=== PATIENT | male | born 1970 | race Two or more races ===

== ENCOUNTER 2020-04-26 07:12 | Emergency (ER) | payer BC, MEDICAID, SELFPAY ==
--- NOTE | 2020-04-26 07:17 | ED_ITS ---
HPI - Eye Problem General Chief complaint: Eye Problems Stated complaint: eye pain Time Seen by Provider: 04/26/20 07:17 Source: patient Mode of arrival: ambulatory Limitations: no limitations History of Present Illness MD chief complaint: eye pain, eye redness and eye injury Onset (ago): day(s) (4) Onset description: sudden Duration: constant Location: right eye Eye Symptoms: redness, pain and foreign body sensation Place: home Mechanism: direct trauma (metal fragment went into eye) Severity: moderate If Pain, Quality: sharp Context: trauma Associated symptoms: none Treatments Prior to Arrival: none Related Data Previous Rx's Medication Instructions Recorded erythromycin 0.5 inch OPHTHALMIC (EYE) TID #3.5 04/26/20 g hydrocodone-acetaminophen 1 tab PO Q6H PRN #12 tab 04/26/20 metformin 1,000 mg tablet 1,000 mg PO Q12H #60 tab 04/26/20 Allergies Allergy/AdvReac Type Severity Reaction Status Date / Time No Known Allergies Allergy Unverified 03/10/20 16:18 [No Known Allergies*] Review of Systems Review of Systems: Constitutional : No Weight loss, No Fever, No Chills ENT/Mouth : No sore throat, No Rhinorrhea Eyes: pos Eye Pain, No Swelling, pos Redness Cardiovascular : No Chest Pain, No SOB Respiratory : No Cough, No Sputum, No Wheezing Gastrointestinal : No Nausea, No Vomiting Genitourinary : No Dysuria, No Urinary Frequency, No Hematuria, Musculoskeletal : No joint pain, No Myalgias, No Joint Swelling Skin : No Skin Lesions, No rash Neuro : No Weakness, No Numbness, No Dizziness, No Headache [facility] Past Medical History Medical History Anxiety Depression Diabetes HTN (hypertension) Social History Social History (Updated 04/26/20 @ 07:24 by Cyndi Lopez DO) Smoking Status: Former smoker Use of substances other than those prescribed or required for medical reasons: No Advance Directives: No Advance Directives Information Provided: No Physical Exam Vital Signs: Vital Signs: Vital Signs Temp Pulse Resp BP Pulse Ox 04/26/20 07:23 97.6 F 66 18 141/83 H 98 Body Mass Index 27.3 Appearance: Alert. Oriented X3. No acute distress. Eyes: Pupils equal, round and reactive to light. Vision intact, EOMi, R eye inferior 8 o'clock position to pupil overlying iris is small metallic FB noted on exam ENT: Pharynx normal. Neck: Normal inspection. Neck supple. CVS: Normal heart rate and rhythm. Pulses normal. Respiratory: No respiratory distress. Breath sounds normal. Abdomen: Soft and nontender. Skin: Skin warm and dry. Normal skin color. Normal skin turgor. Extremities: No lower extremity edema. No calf ttp Neuro: Oriented X 3. No motor deficit. No sensory deficit. Course Course Course Narrative: with espinoza lamp no abrasion seen, only able to partially remove metal fragment in eye with moistened q tip patient tolerate well, unfortunately there is a deeper area not amenable to removal - used fluorscein and tetracaine for removal tolerated well, RN at bedside. Procedures FB Removal Eye Time Out performed: Yes Location: eye (R) Topical anesthetic used: tetracaine Foreign body: metal Evidence of corneal penetration: Yes Technique: cotton tip swab Procedure performed under: direct visualization with magnification Post-procedure medication: ophthalmic antibiotic and topical anesthetic Patient tolerated procedure: well Complications: incomplete foreign body removal MDM - Eye Problem MDM Narrative Medical decision making narrative: 49 yo male s/p metal FB to R eye from Saturday I can visualize the piece with the naked eye, no change in vision, no rust ring, Tdap UTD at this time will stain eye and attempt to remove FB, patient does not wear contacts Discharge Plan Discharge Clinical Impression: Foreign body in eye Qualifiers: Encounter type: initial encounter Laterality: right Qualified Code(s): T15.91XA - Foreign body on external eye, part unspecified, right eye, initial encounter Patient Disposition: Home, Self-Care Instructions: Eye Foreign Body (ED) Additional Instructions: return to ED for any worsening symptoms or concerns, apply ointment in 1 hour, you need to call your eye doctor MICHAEL this needs to be removed in 2 days Prescriptions: New hydrocodone-acetaminophen 5-325 mg tablet 1 tab PO Q6H PRN (Reason: pain) Qty: 12 RF: 0 erythromycin 5 mg/gram (0.5 %) ointment 0.5 inch ophthalmic (eye) TID Qty: 3.5 RF: 0 No Action metformin 1,000 mg tablet 1,000 mg PO Q12H Qty: 60 RF: 2 Referrals: Heber Mendoza [Physician] - 2 days Stand Alone Forms: Work/School Release Interventions: ED Discharge Assessment Last Done: 04/26/20 07:42 Discharge Date/Time: 04/26/20 07:51
[2020-04-26 07:23] VITALS: BP 141/83; PULSE 66; RESP 18; TEMP 36.4; O2SAT 98; BMI 27.3
[2020-04-26] MEDS: Tetracaine HCl/PF 0.5% Oph Sol 4 ML DROPS 3 DROP EYE-BOTH (07:29)
[2020-04-26] MEDS: Fluorescein Sodium STRIP 1 STRIP EYE-BOTH (07:35)
== END 2020-04-26 07:51 | disposition home or self-care (01) ==
LOC: HO.ED 07:43
PROVIDERS: Emergency Provider Emergency Medicine; PCP Physician Assistant
DX: H57.11 Ocular pain, right eye (principal); T15.01XA Foreign body in cornea, right eye, initial encounter; X58.XXXA Exposure to other specified factors, initial encounter; Y93.9 Activity, unspecified; Y92.9 Unspecified place or not applicable; Y99.9 Unspecified external cause status
CPT/HCPCS: 65222; 99284

== ENCOUNTER → 2020-07-14 08:28 | Outpatient (BNVA) | payer BC, MEDICAID, SELFPAY | PROVIDERS: Visit Provider Nurse Practitioner Gerontology ==

== ENCOUNTER → 2020-07-15 09:43 | Outpatient (BNVA) | payer BC, MEDICAID, SELFPAY | PROVIDERS: Visit Provider Urology ==

== ENCOUNTER 2020-10-07 03:00 | Emergency (ER) | payer BC, MEDICAID, SELFPAY ==
--- NOTE | ~2020-10-07 | XR_ITS ---
EXAMINATIONS: BILATERAL HAND 3 VIEWS CLINICAL INFORMATION: Third through fifth metacarpal pain. COMPARISON: None. TECHNIQUE: PA, lateral, oblique views of each hand were obtained. FINDINGS: There are no fractures or dislocations. There is no significant soft tissue swelling. On the left, there is mild fifth PIP and DIP joint space narrowing. XR/XR hand RT min 3V IMPRESSION: No evidence for acute injury to either hand.
--- NOTE | ~2020-10-07 | XR_ITS ---
EXAMINATIONS: BILATERAL HAND 3 VIEWS CLINICAL INFORMATION: Third through fifth metacarpal pain. COMPARISON: None. TECHNIQUE: PA, lateral, oblique views of each hand were obtained. FINDINGS: There are no fractures or dislocations. There is no significant soft tissue swelling. On the left, there is mild fifth PIP and DIP joint space narrowing. XR/XR hand LT min 3V IMPRESSION: No evidence for acute injury to either hand.
[2020-10-07 03:18] VITALS: BP 137/87; PULSE 68; RESP 16; TEMP 37.1; O2SAT 98; BMI 28.5
--- NOTE | 2020-10-07 03:22 | ED.GENADULT ---
HPI - General Adult General Chief complaint: Extremity Injury, Upper Stated complaint: HAND PAIN Time Seen by Provider: 10/07/20 03:16 Source: patient Mode of arrival: ambulatory Limitations: no limitations History of Present Illness HPI narrative: Patient comes to emergency room complaining of bilateral hand pain. Patient states that approximately 3 weeks ago he was caring a large follow up having it, his partner nearly dropped a cabinet and the patient and thinks that he sprinted his hands. Patient states that he has chronic pain over the right 2nd metacarpal, but now he has new pain over the 3rd through 5th metacarpals especially when he closes his hands. Patient states that he did not have any crushing injury Related Data Home Medications Medication Instructions Recorded Confirmed empagliflozin 10 mg tablet 10 mg PO DAILY 06/16/20 07/14/20 ipratropium bromide 21 mcg (0.03 spray INTRANASAL 06/16/20 07/14/20 %) nasal spray aspirin 81 mg chewable tablet 1 tab PO DAILY 07/14/20 07/14/20 blood sugar diagnostic #10 ea 07/14/20 07/14/20 cyclobenzaprine 5 mg tablet 5 mg PO BEDTIME PRN 07/14/20 07/14/20 tadalafil 10 mg tablet 10 mg PO DAILY PRN 07/14/20 07/14/20 Previous Rx's Medication Instructions Recorded erythromycin 0.5 inch OPHTHALMIC (EYE) TID #3.5 04/26/20 g hydrocodone-acetaminophen 1 tab PO Q6H PRN #12 tab 04/26/20 fluticasone propionate 50 1 spray INTRANASAL DAILY #16 g 06/16/20 mcg/actuation nasal spray,suspension tadalafil 10 mg tablet 10 mg PO .As needed PRN 90 Days 07/15/20 #90 tab pantoprazole 40 mg tablet,delayed 40 mg PO DAILY #30 tab 07/18/20 release lisinopril 10 mg tablet 10 mg PO DAILY 90 Days #90 tab 08/14/20 dulaglutide 0.75 mg/0.5 mL 0.75 mg SUBCUT QWEEK #2 ml 09/11/20 subcutaneous pen injector metformin 500 mg tablet,extended 2,000 mg PO DAILY #120 tab 09/15/20 release 24 hr atorvastatin 20 mg tablet 20 mg PO DAILY #30 tab 10/04/20 ibuprofen 600 mg PO Q8H PRN #14 tab 10/07/20 Allergies Allergy/AdvReac Type Severity Reaction Status Date / Time No Known Allergies Allergy Verified 07/14/20 09:13 [No Known Allergies*] Review of Systems Review of Systems: Constitutional : No Weight loss, No Fever, No Chills, No Night Sweats, No Fatigue, No Malaise ENT/Mouth : No Hearing loss, No Ear Pain, No Nasal Congestion, No Sinus Pain, No Hoarseness, No sore throat, No Rhinorrhea, No Swallowing Difficulty Eyes: No Eye Pain, No Swelling, No Redness, No Foreign Body, No Discharge, No Vision Changes Cardiovascular : No Chest Pain, No SOB, No Dyspnea on Exertion, No Orthopnea, No Edema, No Palpitations Respiratory : No Cough, No Sputum, No Wheezing, No Smoke Exposure, No Dyspnea Gastrointestinal : No Nausea, No Vomiting, No Diarrhea, No Constipation, No abdominal Pain, No Hematochezia, No Melena Genitourinary : no irregular bleeding, No Dysuria, No Urinary Frequency, No Hematuria, No Urinary Incontinence, No Urgency, No Flank Pain, No Urinary Flow Changes, No Hesitancy Musculoskeletal : Complaining of bilateral hand pain in the dorsum, no wrist pain Skin : No Skin Lesions, No rash Neuro : No Weakness, No Numbness, No Paresthesias, No Loss of Consciousness, No Dizziness, No Headache Psych : No Anxiety/Panic, No Depression, No SI/HI/AH/VH, No Social Issues, Heme/Lymph: No Bruising, No Bleeding,No Lymphadenopathy Endocrine : No Polyuria, No Polydipsia, No Temperature Intolerance PMFSH Past Medical History Medical History Anxiety Chronic sinusitis Controlled diabetes mellitus without complication, without long-term current use of insulin Depression Diabetes Essential hypertension HTN (hypertension) Hyperlipidemia LDL goal <100 Obesity due to excess calories Smoking Surgical History H/O elbow surgery History of appendectomy History of cataract surgery History of repair of rotator cuff Hx of foot surgery Hx of rhinoplasty Family History Family History Mother Diabetes Hypertension Social History Social History Household Members: None Smoking Status: Former smoker Advance Directives: No Advance Directives Information Provided: No Physical Exam Vital Signs: Vital Signs: Last Vital Signs Temp 98.7 F 10/07/20 03:18 Pulse 68 10/07/20 03:18 Resp 16 10/07/20 03:18 BP 137/87 10/07/20 03:18 Pulse Ox 98 10/07/20 03:18 Body Mass Index 28.5 Appearance: Alert. Oriented X3. No acute distress. Eyes: Pupils equal, round and reactive to light. ENT: Pharynx normal. Neck: Normal inspection. Neck supple. No lymph nodes noted. No crepitus CVS: Normal heart rate and rhythm. Pulses normal. Normal S1 and S2 Respiratory: No respiratory distress. Breath sounds normal. No Wheezing. No rales Abdomen: Soft and nontender. No rigidity. No distention. good BS x4 Skin: Skin warm and dry. Normal skin color. Normal skin turgor. Extremities: No lower extremity edema. Both hands look within normal limits, patient is able to close hands into fists, flex and extend all fingers within normal limits, states he has pain to palpation over the 3rd through 5th metacarpal on the left hand dorsal aspect, and chronic pain on the 2nd metacarpal in the right hand Neuro: Oriented X 3. No motor deficit. No sensory deficit. Moving all extermities. No slurred speech. Course Course Course Narrative: I discussed the x-rays with the patient, no acute findings, no fractures. Patient instructed to follow-up with his primary care physician. Patient's pain likely secondary to arthritis Medical Decision Making Imaging Data Hand x-ray: Radiologist's impression: There are no fractures or dislocations. There is no significant soft tissue swelling. On the left, there is mild fifth PIP and DIP joint space narrowing. Discharge Plan Discharge Clinical Impression: Bilateral hand pain Patient Disposition: Home, Self-Care Instructions: Arthralgia (ED) Additional Instructions: Please follow-up with your primary care physician tomorrow. If you have any worsening or new symptoms, please return to the emergency room or call 911 Prescriptions: New ibuprofen 600 mg tablet 600 mg PO Q8H PRN (Reason: pain) Qty: 14 RF: 0 No Action fluticasone propionate 50 mcg/actuation spray,suspension 1 spray intranasal DAILY Qty: 16 RF: 3 pantoprazole 40 mg tablet,delayed release (DR/EC) 40 mg PO DAILY Qty: 30 RF: 4 lisinopril 10 mg tablet 10 mg PO DAILY 90 Days Qty: 90 RF: 2 Trulicity 0.75 mg/0.5 mL pen injector 0.75 mg subcut QWEEK Qty: 2 RF: 0 metformin 500 mg tablet extended release 24 hr 2,000 mg PO DAILY Qty: 120 RF: 3 atorvastatin 20 mg tablet 20 mg PO DAILY Qty: 30 RF: 3 hydrocodone-acetaminophen 5-325 mg tablet 1 tab PO Q6H PRN (Reason: pain) Qty: 12 RF: 0 erythromycin 5 mg/gram (0.5 %) ointment 0.5 inch ophthalmic (eye) TID Qty: 3.5 RF: 0 ipratropium bromide 0.03 % spray,non-aerosol intranasal RF: 0 Jardiance 10 mg tablet 10 mg PO DAILY RF: 0 tadalafil 10 mg tablet 10 mg PO DAILY PRNRF: 0 (DME) FreeStyle Lite Strips Strip See Rx Instructions strip Not Applicable BID Qty: 10 RF: 0 aspirin 81 mg tablet,chewable 1 tab PO DAILY RF: 0 cyclobenzaprine 5 mg tablet 5 mg PO BEDTIME PRNRF: 0 tadalafil 10 mg tablet 10 mg PO .As needed PRN (Reason: sexual activity) 90 Days Qty: 90 RF: 1
== END 2020-10-07 05:24 | disposition home or self-care (01) ==
PROVIDERS: Emergency Provider Emergency Medicine; PCP Physician Assistant
DX: M79.641 Pain in right hand (principal); M79.642 Pain in left hand; M25.542 Pain in joints of left hand; M25.541 Pain in joints of right hand; Z87.891 Personal history of nicotine dependence; Z79.899 Other long term (current) drug therapy; Z79.82 Long term (current) use of aspirin
CPT/HCPCS: 73130; 99283

== ENCOUNTER → 2020-12-02 10:03 | Outpatient (BNVA) | payer BC, MEDICAID, SELFPAY | PROVIDERS: PCP Physician Assistant; Visit Provider Nurse Practitioner Gerontology | DX: E11.65 Type 2 diabetes mellitus with hyperglycemia (principal); E78.5 Hyperlipidemia, unspecified; I10 Essential (primary) hypertension; E66.9 Obesity, unspecified | CPT/HCPCS: 82947 ==

== ENCOUNTER 2020-12-14 10:33 | Outpatient (REF) | payer BC, SELFPAY ==
[2020-12-14 11:43] LABS: Hematocrit 50.2 % (42-52); Hemoglobin 17.7 g/dl (14.0-18.0); Mean Corpuscular HGB Conc 35.3 g/dl (31.0-36.0); Mean Corpuscular Hemoglobin 30.9 pg (27.0-33.0); Mean Corpuscular Volume 87.8 fL (80-98); Mean Platelet Volume 10.5 fL (9.4-12.4); Platelet Count 244 X10*3/uL (160-400); Red Blood Count 5.72 X10*6/uL (4.60-5.80); Red Cell Distribution Width 12.8 % (11.0-16.0); White Blood Count 5.4 X10*3/uL (4.8-10.8)
[2020-12-14 12:06] LABS: Alanine Aminotransferase 43 U/L (0-40); Albumin Level 4.5 g/dL (3.5-5.0); Alkaline Phosphatase 69 U/L (39-117); Anion Gap 13 (12-20); Aspartate Amino Transferase 22 U/L (5-37); Bilirubin Total 0.8 mg/dL (0.0-1.0); Blood Urea Nitrogen 17 mg/dL (9-16); Calcium 9.6 mg/dL (8.4-10.2); Carbon Dioxide 27 mmol/L (22-29); Chloride 102 mmol/L (96-108); Cholesterol 198 mg/dL; Estimated Glomerular Filt Rate > 60; Glucose Fasting 172 mg/dL (60-99); HDL Cholesterol 64 mg/dL; LDL Cholesterol Calculated 119 mg/dl; Potassium 5.1 mmol/L (3.3-5.1); Sodium 137 mmol/L (135-145); Total Protein 7.6 g/dL (6.5-8.0); Triglycerides 75 mg/dL
[2020-12-14 12:10] LABS: Creatinine Urine 86.03 mg/dL; Microalbum/Creatinine Ratio Ur 5.8 ug/mg cr
[2020-12-14 12:28] LABS: Prostate Specific Antigen Scr 0.63 ng/mL (<0.05-4.0); TSH reflex Free T4 0.58 uIU/mL (0.32-4.0)
[2020-12-14 13:14] LABS: Estimated Average Glucose 217 mg/dL; Hemoglobin A1c % 9.2 %
[2020-12-15 07:52] LABS: LDL Cholesterol Direct 126 mg/dL (<100)
== END 2020-12-14 10:34 | disposition home or self-care (01) ==
LOC: HO.LAB 10:33
PROVIDERS: Absent Provider Physician Assistant; PCP Physician Assistant; Visit Provider Nurse Practitioner Gerontology
DX: Z12.5 Encounter for screening for malignant neoplasm of prostate (principal); I10 Essential (primary) hypertension; E11.65 Type 2 diabetes mellitus with hyperglycemia
CPT/HCPCS: 36415; 80053; 80061; 82043; 83036; 83721; 84153; 84443; 85027

== ENCOUNTER → 2020-12-23 09:44 | Outpatient (BNVA) | payer BC, SELFPAY | PROVIDERS: PCP Physician Assistant; Visit Provider Dietitian, Registered | DX: E11.65 Type 2 diabetes mellitus with hyperglycemia (principal) | CPT/HCPCS: 97802 ==

== ENCOUNTER → 2021-01-20 10:46 | Outpatient (BNVA) | payer BC, SELFPAY | PROVIDERS: PCP Physician Assistant; Visit Provider Nurse Practitioner Gerontology | DX: E11.65 Type 2 diabetes mellitus with hyperglycemia (principal); E78.5 Hyperlipidemia, unspecified; I10 Essential (primary) hypertension; E66.3 Overweight | CPT/HCPCS: 82947 ==

== ENCOUNTER → 2021-02-03 09:16 | Outpatient (BNVA) | payer BC, SELFPAY | PROVIDERS: PCP Physician Assistant; Visit Provider Dietitian, Registered | DX: E11.65 Type 2 diabetes mellitus with hyperglycemia (principal); I10 Essential (primary) hypertension; E78.5 Hyperlipidemia, unspecified; E66.9 Obesity, unspecified; Z68.27 Body mass index [BMI] 27.0-27.9, adult | CPT/HCPCS: 97803 ==

== ENCOUNTER 2021-02-04 22:15 | Emergency (ER) | payer BC, MEDICAID, SELFPAY ==
--- NOTE | ~2021-02-04 | CT_ITS ---
EXAMINATION: CT ABDOMEN AND PELVIS WITH CONTRAST CLINICAL INFORMATION: Left lower quadrant pain COMPARISON: 01/30/2014 TECHNIQUE: Multidetector volumetric images were obtained from the superior aspect of the liver through the pubic symphysis following administration 85 mL of Omnipaque 350 intravenous contrast. Sagittal and coronal reformatted images were obtained on the technologist's workstation. Oral contrast: No This CT examination was performed using dose optimization techniques as appropriate, variously including the following: *Automated exposure control *Adjustment of mA and/or kV according to patient size (this includes techniques or standardized protocols for targeted exams where dose is matched to indication/reason for exam; i.e. extremities or head) *Use of iterative reconstruction technique DLP: 618 mGy-cm FINDINGS: LUNG BASES: The visualized lung bases are unremarkable. LIVER, GALLBLADDER, AND BILIARY TREE: The liver is normal in size, shape, and attenuation. No focal hepatic lesion or biliary ductal dilatation is present. The gallbladder is unremarkable with no evidence of radiopaque gallstones, gallbladder wall thickening, or obvious pericholecystic inflammatory changes. PANCREAS: Unremarkable. SPLEEN: Unremarkable. ADRENAL GLANDS: Unremarkable. KIDNEYS AND URETERS: The kidneys are normal in size, shape, and attenuation. No hydronephrosis, hydroureter, or calculi seen. No perinephric stranding. BLADDER: Unremarkable. GASTROINTESTINAL TRACT: The stomach is unremarkable. Normal caliber small bowel. No obstruction. The appendix is absent. No colonic wall thickening or inflammatory change. No free air or free fluid. ABDOMINAL WALL: No significant hernia is appreciated. LYMPH NODES: Normal. VASCULAR: Normal caliber aorta with mild atherosclerotic calcification. PELVIC VISCERA: The prostate and seminal vesicles are unremarkable. OSSEOUS STRUCTURES: No acute or suspicious osseous abnormality. Mild degenerative change at L5-S1 with disc space narrowing and vacuum disc phenomenon. CT/CT abdomen pelvis w con IMPRESSION: No acute findings in the abdomen or pelvis. No inflammatory changes.
[2021-02-04 22:33] VITALS: BP 116/78; PULSE 75; RESP 16; TEMP 37; O2SAT 96; BMI 26.6
[2021-02-05] VITALS: BP 115/82; PULSE 69; RESP 18; O2SAT 97
--- NOTE | 2021-02-05 00:33 | ED_ITS ---
HPI - Abdominal Pain General Chief Complaint: Abdominal Pain Stated Complaint: Abdominal pain Time Seen by Provider: 02/04/21 23:25 Source: patient Mode of arrival: ambulatory History of Present Illness HPI narrative: 50-year-old male with history diabetes presents with complaints of left lower quadrant pain and associated nausea but denies any vomiting/fevers/chills for approximately 1 week. Patient denies any radiation of the pain but states that has increased in intensity and has not been associated with diarrhea or difficulties with urination. He states it is somewhat associated with his injection site for his diabetic medications. Related Data Home Medications Medication Instructions Recorded Confirmed ipratropium bromide 21 mcg (0.03 2 spray INTRANASAL BID 06/16/20 02/05/21 %) nasal spray aspirin 81 mg chewable tablet 1 tab PO DAILY 07/14/20 02/05/21 blood sugar diagnostic #10 ea 07/14/20 02/05/21 Previous Rx's Medication Instructions Recorded lisinopril 10 mg tablet 10 mg PO DAILY 90 Days #90 tab 08/14/20 ibuprofen 600 mg tablet 600 mg PO Q8H PRN #14 tab 10/07/20 empagliflozin 25 mg tablet 25 mg PO QAM #90 tab 12/02/20 (Jardiance) fluticasone propionate 50 1 spray INTRANASAL DAILY #16 g 12/05/20 mcg/actuation nasal spray,suspension metformin 500 mg tablet,extended 1,000 mg PO BID #360 tab 12/05/20 release 24 hr tadalafil 10 mg tablet 10 mg PO .As needed PRN 90 Days 12/14/20 #90 tab atorvastatin 40 mg tablet 40 mg PO DAILY 90 Days #90 tab 12/20/20 cyclobenzaprine 5 mg tablet 5 mg PO BEDTIME PRN 15 Days #15 tab 12/20/20 montelukast 10 mg tablet 10 mg PO DAILY 30 Days #30 tab 12/20/20 hydroxyzine HCl 50 mg tablet 50 mg PO BEDTIME 30 Days #30 tab 01/02/21 pantoprazole 40 mg tablet,delayed 40 mg PO DAILY #30 tab 01/02/21 release dulaglutide 0.75 mg/0.5 mL 0.75 mg SUBCUT QWEEK #2 ml 01/20/21 subcutaneous pen injector (Trulicity) Allergies Allergy/AdvReac Type Severity Reaction Status Date / Time No Known Allergies Allergy Verified 02/04/21 22:41 [No Known Allergies*] Review of Systems Review of Systems Pertinent positives and negatives as stated in HPI 10 point review systems is otherwise negative. Physical Exam Vital Signs: Vital Signs: Last Vital Signs Temp 98.6 F 02/04/21 22:33 Pulse 69 02/05/21 00:00 Resp 18 02/05/21 00:00 BP 115/82 02/05/21 00:00 Pulse Ox 97 02/05/21 00:00 Body Mass Index 26.6 VITAL SIGNS: Reviewed. GENERAL: Well developed, well nourished, in no acute distress. HEAD: Normocephalic/atraumatic EYES: PERRLA, EOMI LUNGS: Normal breath sounds. No adventitious sounds or accessory muscle use. SpO2<97> CARDIOVASCULAR: Regular rate and rhythm without noted murmurs ABDOMEN: Soft, tenderness at left lower quadrant without rebound, non-distended with bowel sounds. SKIN: Inspection of the skin reveals no rashes NEUROLOGIC: Alert and oriented x 4. Course Course Course Narrative: This is a 50-year-old male with history and clinical presentat ion suggestive of possible diverticulitis, renal colic, or possible but less likely UTI. Review of all investigations negative for any acute findings and suspect that this is likely musculoskeletal in nature or as the patient suggested may be associated with his injections. He was informed of all results and discharged home in stable condition. MDM - Abdominal Pain Lab Data Result diagrams: 02/05/21 00:29 02/05/21 00:29 Labs: Lab Results 02/05/21 02/05/21 02/05/21 Range/Units 00:29 00:29 00:29 WBC 6.8 (4.8-10.8) X10*3/uL RBC 5.36 (4.60-5.80) X10*6/uL Hgb 16.7 (14.0-18.0) g/dl Hct 46.7 (42-52) % MCV 87.1 (80-98) fL MCH 31.2 (27.0-33.0) pg MCHC 35.8 (31.0-36.0) g/dl RDW 12.5 (11.0-16.0) % Plt Count 207 (160-400) X10*3/uL MPV 10.1 (9.4-12.4) fL Immature Gran % (Auto) 0.3 (0.0-0.4) % Neut % (Auto) 53.1 (45-73) % Lymph % (Auto) 34.1 (20-40) % [place] % (Auto) 9.0 (2-11) % Eos % (Auto) 2.8 (0-4) % Baso % (Auto) 0.7 (0-2) % Lymph # (Auto) 2.3 (1.2-4.9) X10*3/uL [place] # (Auto) 0.6 (0.1-1.2) X10*3/uL Eos # (Auto) 0.2 (0.0-0.4) X10*3/uL Baso # (Auto) 0.1 (0.0-0.2) X10*3/uL Abs Immat Gran (auto) 0.02 (0.00-0.03) X10*3/uL Absolute Neuts (auto) 3.6 (2.0-8.3) X10*3/uL Absolute Nucleated RBC 0.000 (0.0-0.012) X10*3/uL Nucleated RBC % (auto) 0.0 (0.0-0.2) /100WBC Sodium 139 (135-145) mmol/L Potassium 4.4 (3.3-5.1) mmol/L Chloride 105 (96-108) mmol/L Carbon Dioxide 23 (22-29) mmol/L Anion Gap 15 (12-20) BUN 21 H (9-16) mg/dL Creatinine 0.79 (0.5-1.4) mg/dL Estim Creat Clear Calc 110.6 Estimated GFR > 60 Random Glucose 153 H (60-115) mg/dL Calcium 9.7 (8.4-10.2) mg/dL Total Bilirubin 0.3 (0.0-1.0) mg/dL AST 20 (5-37) U/L ALT 44 H (0-40) U/L Alkaline Phosphatase 92 D (39-117) U/L Total Protein 7.1 (6.5-8.0) g/dL Albumin 4.1 (3.5-5.0) g/dL Lipase 24 (8-78) U/L Urine Color YELLOW Urine Appearance CLEAR Urine pH 5.5 (5.0-8.0) Ur Specific [place] 1.020 (1.005-1.025) Urine Protein NEG (NEG-TRACE) MG/DL Urine Glucose (UA) >=1000 H (NEG) MG/DL Urine Ketones NEG (NEG) MG/DL Urine Blood NEG (NEG) Urine Nitrite NEG (NEG) Ur Leukocyte Esterase NEG (NEG) Urine RBC 0-2 (0) /HPF Urine WBC 0-2 (0-4) /HPF Ur Squamous Epith Cells TRACE /LPF Urine Bacteria NONE /LPF Urine Mucus TRACE /LPF Discharge Plan Discharge Clinical Impression: Musculoskeletal pain, Pain at injection site Patient Disposition: Home, Self-Care Instructions: Musculoskeletal Pain (ED) Additional Instructions: 1. Resume all home medications as prescribed. 2. Follow-up with your primary care provider for re-evaluation in 2-3 days and further outpatient management. 3. Recommend taking [id number] Tylenol/ibuprofen as needed for pain control. Return to the ER for acute worsening of your symptoms. Prescriptions: No Action lisinopril 10 mg tablet 10 mg PO DAILY 90 Days Qty: 90 RF: 2 fluticasone propionate 50 mcg/actuation spray,suspension 1 spray intranasal DAILY Qty: 16 RF: 3 metformin 500 mg tablet extended release 24 hr 1,000 mg PO BID Qty: 360 RF: 0 tadalafil 10 mg tablet 10 mg PO .As needed PRN (Reason: sexual activity) 90 Days Qty: 90 RF: 1 pantoprazole 40 mg tablet,delayed release (DR/EC) 40 mg PO DAILY Qty: 30 RF: 4 hydroxyzine HCl 50 mg tablet 50 mg PO BEDTIME 30 Days Qty: 30 RF: 4 ibuprofen 600 mg tablet 600 mg PO Q8H PRN (Reason: pain) Qty: 14 RF: 0 ipratropium bromide 0.03 % spray,non-aerosol 2 spray intranasal BID RF: 0 atorvastatin 40 mg tablet 40 mg PO DAILY 90 Days Qty: 90 RF: 1 montelukast 10 mg tablet 10 mg PO DAILY 30 Days Qty: 30 RF: 3 cyclobenzaprine 5 mg tablet 5 mg PO BEDTIME PRN (Reason: muscle spasm) 15 Days Qty: 15 RF: 0 (DME) FreeStyle Lite Strips Strip See Rx Instructions strip Not Applicable BID Qty: 10 RF: 0 aspirin 81 mg tablet,chewable 1 tab PO DAILY RF: 0 Jardiance 25 mg tablet 25 mg PO QAM Qty: 90 RF: 0 Trulicity 0.75 mg/0.5 mL pen injector 0.75 mg subcut QWEEK Qty: 2 RF: 4 Referrals: Juni Ro PA-C [Primary Care Provider] - 2 days [facility] Past Medical History Source: nursing notes reviewed Medical History Anxiety Chronic sinusitis Controlled diabetes mellitus without complication, without long-term current use of insulin Depression Diabetes Diabetes type 2, uncontrolled Essential hypertension HTN (hypertension) Hyperlipidemia LDL goal <100 Overweight Smoking Surgical History H/O elbow surgery History of appendectomy History of cataract surgery History of nasal surgery History of repair of rotator cuff Hx of foot surgery Hx of rhinoplasty Family History Family History Mother Diabetes Hypertension Social History Social History Household Members: None Housing: House Alcohol intake: former Patient Tobacco Use Status: Former Tobacco user Years Smoked: 1 1/2 year ago Smoked in Last 30 Days: No Use of substances other than those prescribed or required for medical reasons: No Advance Directives: No Advance Directives Information Provided: No service: No 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al status: employed
[2021-02-05 00:36] LABS: MANUAL DIFF FLAG NO
[2021-02-05 00:37] LABS: Basophils Absolute Auto 0.1 X10*3/uL (0.0-0.2); Basophils Percent Auto 0.7 % (0-2); Eosinophils Absolute Auto 0.2 X10*3/uL (0.0-0.4); Eosinophils Percent Auto 2.8 % (0-4); Hematocrit 46.7 % (42-52); Hemoglobin 16.7 g/dl (14.0-18.0); Imm Gran Abs Auto 0.02 X10*3/uL (0.00-0.03); Imm Gran Pct Auto 0.3 % (0.0-0.4); Lymphocytes Absolute Auto 2.3 X10*3/uL (1.2-4.9); Lymphocytes Percent Auto 34.1 % (20-40); Mean Corpuscular HGB Conc 35.8 g/dl (31.0-36.0); Mean Corpuscular Hemoglobin 31.2 pg (27.0-33.0); Mean Corpuscular Volume 87.1 fL (80-98); Mean Platelet Volume 10.1 fL (9.4-12.4); Monocytes Absolute Auto 0.6 X10*3/uL (0.1-1.2); Neutrophils Absolute Auto 3.6 X10*3/uL (2.0-8.3); Neutrophils Percent Auto 53.1 % (45-73); Platelet Count 207 X10*3/uL (160-400); Red Blood Count 5.36 X10*6/uL (4.60-5.80); Red Cell Distribution Width 12.5 % (11.0-16.0); White Blood Count 6.8 X10*3/uL (4.8-10.8)
[2021-02-05 01:01] LABS: Alanine Aminotransferase 44 U/L (0-40); Albumin Level 4.1 g/dL (3.5-5.0); Alkaline Phosphatase 92 U/L (39-117); Anion Gap 15 (12-20); Aspartate Amino Transferase 20 U/L (5-37); Bilirubin Total 0.3 mg/dL (0.0-1.0); Blood Urea Nitrogen 21 mg/dL (9-16); Calcium 9.7 mg/dL (8.4-10.2); Carbon Dioxide 23 mmol/L (22-29); Chloride 105 mmol/L (96-108); Creatinine Clr Calc Pharmacy 110.6; Estimated Glomerular Filt Rate > 60; Glucose Random 153 mg/dL (60-115); Lipase 24 U/L (8-78); Potassium 4.4 mmol/L (3.3-5.1); Sodium 139 mmol/L (135-145); Total Protein 7.1 g/dL (6.5-8.0)
[2021-02-05 01:13] LABS: Glucose Urine UA >=1000 MG/DL (NEG); Leukocyte Esterase Urine NEG (NEG); Nitrite Urine NEG (NEG); PH 5.5 (5.0-8.0); Urine Blood NEG (NEG); Urine Ketones NEG (NEG); Urine Protein NEG (NEG-TRACE)
[2021-02-05 01:19] LABS: Appearance Urine CLEAR; Color Urine YELLOW
[2021-02-05] MEDS: iohexoL 350 MG/ML 100 ML INFUS..BTL 85 ML IV (01:27)
[2021-02-05 01:35] LABS: RBC Urine 0-2 /HPF (0); Squamous Epithelial Cell Urine TRACE /LPF; WBC Urine 0-2 /HPF (0-4)
[2021-02-05 01:36] LABS: Mucus Urine TRACE /LPF
[2021-02-05 02:47] VITALS: BP 114/76; PULSE 69; RESP 16; O2SAT 96
== END 2021-02-05 02:54 | disposition home or self-care (01) ==
PROVIDERS: Emergency Provider Student in an Organized Health Care Education/Training Program; PCP Physician Assistant
DX: M79.18 Myalgia, other site (principal); T80.89XA Other complications following infusion, transfusion and therapeutic injection, initial encounter; R10.32 Left lower quadrant pain
CPT/HCPCS: 36415; 74177; 80053; 81001; 81003; 83690; 85025; 99284; Q9967

== ENCOUNTER 2021-03-14 11:06 | Outpatient (REF) | payer BC, MEDICAID, SELFPAY ==
[2021-03-14 12:32] LABS: Estimated Average Glucose 194 mg/dL; Hemoglobin A1c % 8.4 %
[2021-03-14 12:41] LABS: Creatinine Urine 88.41 mg/dL; Microalbum/Creatinine Ratio Ur 7.9 ug/mg cr
[2021-03-14 12:45] LABS: Alanine Aminotransferase 47 U/L (0-40); Albumin Level 4.2 g/dL (3.5-5.0); Alkaline Phosphatase 70 U/L (39-117); Anion Gap 11 (12-20); Aspartate Amino Transferase 24 U/L (5-37); Bilirubin Total 0.8 mg/dL (0.0-1.0); Blood Urea Nitrogen 17 mg/dL (9-16); Calcium 9.3 mg/dL (8.4-10.2); Carbon Dioxide 25 mmol/L (22-29); Chloride 107 mmol/L (96-108); Cholesterol 154 mg/dL; Estimated Glomerular Filt Rate > 60; Glucose Fasting 142 mg/dL (60-99); HDL Cholesterol 60 mg/dL; LDL Cholesterol Calculated 86 mg/dl; Potassium 4.8 mmol/L (3.3-5.1); Sodium 138 mmol/L (135-145); Total Protein 6.8 g/dL (6.5-8.0); Triglycerides 43 mg/dL
== END 2021-03-14 11:07 | disposition home or self-care (01) ==
LOC: HO.LAB 11:06
PROVIDERS: Absent Provider Nurse Practitioner Gerontology; PCP Physician Assistant; Visit Provider Physician Assistant
DX: E11.65 Type 2 diabetes mellitus with hyperglycemia (principal); E78.5 Hyperlipidemia, unspecified
CPT/HCPCS: 36415; 80053; 80061; 82043; 83036

== ENCOUNTER → 2021-03-17 10:32 | Outpatient (BNVA) | payer BC, MEDICAID, SELFPAY | PROVIDERS: PCP Physician Assistant; Visit Provider Dietitian, Registered | DX: E11.65 Type 2 diabetes mellitus with hyperglycemia (principal) | CPT/HCPCS: 97803 ==

== ENCOUNTER 2021-03-31 15:14 | Outpatient (REF) | payer BC, MEDICAID, SELFPAY ==
--- NOTE | ~2021-03-31 | CT_ITS ---
EXAMINATION: CT FOOT, LEFT CLINICAL INFORMATION: Nondisplaced fracture of navicular bone. COMPARISON: No recent exam available. Exam 12/23/2016 left ankle is normal. TECHNIQUE: 2 mm thin axial and 2 mm thin reconstructed coronal and sagittal images of left ankle were obtained. DLP: 147 mGy-cm FINDINGS: There is a bony fusion between the navicular, medial and mid cuneiform bones with small lucent tracks seen between these bones suggestive of previous instrumentation and removal for fusion. There is no acute fracture visualized at this time. The lateral cuneiform, talus and the cuboid bones are intact. The tarsometatarsal joint space is maintained normal as well without any evidence for secondary arthritis. The soft tissues are normal. CT/CT foot LT wo con IMPRESSION: Previous instrumentation and removal for fusion of calcaneus, medial and mid cuneiform bones which are partially fused. There is no acute fracture or dislocation seen at this time. No changes of secondary osteoarthritis. No soft tissue swelling.
== END 2021-03-31 15:15 | disposition home or self-care (01) ==
LOC: HO.CT 15:14
PROVIDERS: Visit Provider Physician Assistant
DX: S92.255 Nondisplaced fracture of navicular [scaphoid] of left foot (principal)
CPT/HCPCS: 73700

== ENCOUNTER 2021-07-06 12:11 | Outpatient (REF) | payer BC, MEDICAID, SELFPAY ==
[2021-07-06 13:32] LABS: Alanine Aminotransferase 45 U/L (0-40); Albumin Level 4.3 g/dL (3.5-5.0); Alkaline Phosphatase 64 U/L (39-117); Anion Gap 11 (12-20); Aspartate Amino Transferase 22 U/L (5-37); Bilirubin Total 1.2 mg/dL (0.0-1.0); Blood Urea Nitrogen 18 mg/dL (9-16); Calcium 9.6 mg/dL (8.4-10.2); Carbon Dioxide 29 mmol/L (22-29); Chloride 103 mmol/L (96-108); Cholesterol 145 mg/dL; Estimated Glomerular Filt Rate > 60; Glucose Fasting 120 mg/dL (60-99); HDL Cholesterol 60 mg/dL; LDL Cholesterol Calculated 78 mg/dl; Potassium 4.7 mmol/L (3.3-5.1); Sodium 138 mmol/L (135-145); Total Protein 7.6 g/dL (6.5-8.0); Triglycerides 37 mg/dL
[2021-07-06 13:41] LABS: Estimated Average Glucose 177 mg/dL; Hemoglobin A1c % 7.8 %
[2021-07-06 13:44] LABS: Creatinine Urine 92.46 mg/dL; Microalbumin Urine < 5.0 mg/L
== END 2021-07-06 12:12 | disposition home or self-care (01) ==
LOC: HO.LAB 12:11
PROVIDERS: PCP Physician Assistant; Visit Provider Physician Assistant
DX: E11.65 Type 2 diabetes mellitus with hyperglycemia (principal); E78.5 Hyperlipidemia, unspecified
CPT/HCPCS: 36415; 80053; 80061; 82043; 83036; 84443

== ENCOUNTER → 2021-07-11 08:03 | Outpatient (BNVA) | payer BC, MEDICAID, SELFPAY | PROVIDERS: PCP Physician Assistant; Visit Provider Nurse Practitioner Gerontology | DX: E11.65 Type 2 diabetes mellitus with hyperglycemia (principal); E78.5 Hyperlipidemia, unspecified; E66.3 Overweight; I10 Essential (primary) hypertension; Z79.84 Long term (current) use of oral hypoglycemic drugs; Z68.27 Body mass index [BMI] 27.0-27.9, adult | CPT/HCPCS: 82947 ==

== ENCOUNTER → 2021-07-14 09:41 | Outpatient (BNVA) | payer BC, MEDICAID, SELFPAY | PROVIDERS: PCP Physician Assistant; Visit Provider Dietitian, Registered | DX: E11.65 Type 2 diabetes mellitus with hyperglycemia (principal) | CPT/HCPCS: 97803 ==

== ENCOUNTER → 2021-07-20 11:14 | Outpatient (BNVA) | payer BC, MEDICAID, SELFPAY | PROVIDERS: PCP Physician Assistant; Visit Provider Urology | DX: E11.69 Type 2 diabetes mellitus with other specified complication (principal); N52.1 Erectile dysfunction due to diseases classified elsewhere | CPT/HCPCS: 51798 ==

== ENCOUNTER → 2021-07-28 08:10 | Outpatient (BNVA) | payer BC, MEDICAID, SELFPAY | PROVIDERS: PCP Physician Assistant; Visit Provider Registered Nurse Diabetes Educator ==

== ENCOUNTER → 2021-08-23 09:45 | Outpatient (BNVA) | payer BC, MEDICAID, SELFPAY | PROVIDERS: PCP Physician Assistant; Referring Provider Physician Assistant; Visit Provider Physician Assistant ==

== ENCOUNTER → 2021-08-25 09:04 | Outpatient (BNVA) | payer BC, MEDICAID, SELFPAY | PROVIDERS: PCP Physician Assistant; Visit Provider Registered Nurse Diabetes Educator ==

== ENCOUNTER → 2021-10-19 08:54 | Outpatient (BNVA) | payer BC, MEDICAID, SELFPAY | PROVIDERS: PCP Physician Assistant; Visit Provider Nurse Practitioner Gerontology | DX: E11.65 Type 2 diabetes mellitus with hyperglycemia (principal); E78.5 Hyperlipidemia, unspecified; E66.3 Overweight; I10 Essential (primary) hypertension; Z68.27 Body mass index [BMI] 27.0-27.9, adult | CPT/HCPCS: 82947; 83036 ==

== ENCOUNTER → 2021-11-01 09:13 | Outpatient (REF) | payer BC, MEDICAID, SELFPAY | LOC: HO.SL 09:13 | PROVIDERS: PCP Physician Assistant; Visit Provider Physician Assistant | DX: Z13.89 Encounter for screening for other disorder (principal) ==

== ENCOUNTER → 2021-12-04 08:08 | Outpatient (BNVA) | payer BC, MEDICAID, SELFPAY | PROVIDERS: PCP Physician Assistant; Visit Provider Registered Nurse Diabetes Educator | DX: E11.65 Type 2 diabetes mellitus with hyperglycemia (principal) | CPT/HCPCS: 99211 ==

== ENCOUNTER → 2022-01-15 08:30 | Outpatient (BNVA) | payer BC, MEDICAID, SELFPAY | PROVIDERS: PCP Physician Assistant; Visit Provider Dietitian, Registered | DX: E11.65 Type 2 diabetes mellitus with hyperglycemia (principal) | CPT/HCPCS: 97803 ==

== ENCOUNTER 2022-06-05 15:42 | Outpatient (REF) | payer BC, MEDICAID, SELFPAY ==
--- NOTE | ~2022-06-05 | XR_ITS ---
EXAMINATION: XR HAND, LEFT CLINICAL INFORMATION: Pain COMPARISON: 10/07/2020 TECHNIQUE: PA, lateral, and oblique views of the left hand. FINDINGS: Bones have normal alignment throughout the hand or wrist. No acute fracture, subluxation or focal soft tissue swelling. No erosions or periostitis. The carpal bones and metacarpals are normal. Small marginal osteophytes are present at several interphalangeal joints, including the thumb interphalangeal joint. XR/XR hand LT min 3V IMPRESSION: * No acute abnormality compared to 10/07/2020. 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
[2022-06-05 16:43] LABS: Uric Acid 1.7 mg/dL (3.4-7.0)
== END 2022-06-05 15:43 | disposition home or self-care (01) ==
LOC: HO.XRAY 15:42
PROVIDERS: PCP Physician Assistant; Visit Provider Nurse Practitioner Family
DX: M79.645 Pain in left finger(s) (principal); R22.30 Localized swelling, mass and lump, unspecified upper limb
CPT/HCPCS: 36415; 73130; 84550

== ENCOUNTER 2022-06-06 11:17 | Outpatient (REF) | payer BC, MEDICAID, SELFPAY ==
[2022-06-06 12:26] LABS: Hemoglobin 16.9 g/dl (14.0-18.0); Mean Corpuscular HGB Conc 33.8 g/dl (31.0-36.0); Mean Corpuscular Hemoglobin 29.8 pg (27.0-33.0); Mean Platelet Volume 10.3 fL (9.4-12.4); Platelet Count 237 X10*3/uL (160-400); Red Blood Count 5.68 X10*6/uL (4.60-5.80); Red Cell Distribution Width 12.7 % (11.0-16.0); White Blood Count 6.2 X10*3/uL (4.8-10.8)
[2022-06-06 15:08] LABS: Alanine Aminotransferase 44 U/L (0-40); Albumin Level 4.4 g/dL (3.5-5.0); Alkaline Phosphatase 84 U/L (39-117); Anion Gap 11 (12-20); Aspartate Amino Transferase 19 U/L (5-37); Bilirubin Total 0.6 mg/dL (0.0-1.0); Blood Urea Nitrogen 19 mg/dL (9-16); Calcium 9.8 mg/dL (8.4-10.2); Carbon Dioxide 29 mmol/L (22-29); Chloride 103 mmol/L (96-108); Cholesterol 152 mg/dL; Estimated Glomerular Filt Rate > 60; Glucose Fasting 178 mg/dL (60-99); HDL Cholesterol 59 mg/dL; LDL Cholesterol Calculated 81 mg/dl; Potassium 5.3 mmol/L (3.3-5.1); Prostate Specific Antigen Scr 0.63 ng/mL (<0.05-4.0); Sodium 138 mmol/L (135-145); TSH reflex Free T4 0.94 uIU/mL (0.32-4.0); Total Protein 7.3 g/dL (6.5-8.0); Triglycerides 63 mg/dL
== END 2022-06-06 11:18 | disposition home or self-care (01) ==
LOC: HO.LAB 11:17
PROVIDERS: PCP Physician Assistant; Visit Provider Physician Assistant
DX: Z12.5 Encounter for screening for malignant neoplasm of prostate (principal); E11.65 Type 2 diabetes mellitus with hyperglycemia; E78.5 Hyperlipidemia, unspecified
CPT/HCPCS: 36415; 80053; 80061; 84153; 84443; 85027

== ENCOUNTER 2022-06-12 08:59 | Outpatient (REF) | payer BC, MEDICAID, SELFPAY ==
--- NOTE | ~2022-06-12 | XR_ITS ---
EXAMINATION: XR lumbar spine 6V w bending, XR sacroiliac joint min 3V CLINICAL INFORMATION: Reason for Exam M47.816 - Spondylosis without myelopathy or radiculopathy, lumbar region COMPARISON: Lumbar spine radiographs 12/26/2017 TECHNIQUE: 7 views of the lumbar spine. 3 views of the sacroiliac joints. FINDINGS: 5 nonrib-bearing lumbar-type vertebral bodies. Vertebral body heights are maintained. Alignment is maintained. No pars defects. Mild degenerative disc disease worst at L5-S1 with loss of disc space height and facet arthropathy. No instability on flexion extension views. Right pelvic surgical clips. Surgical suture anastomosis along the expected margin of the cecum. Sacroiliac joint spaces are maintained without significant degenerative disc disease. No appreciable pelvic fracture identified. Calcified phleboliths in the pelvis. XR/XR sacroiliac joint min 3V IMPRESSION: * Mild spondylosis of the lumbar spine, as above detailed. * Unremarkable radiographs of the sacroiliac joints.
--- NOTE | ~2022-06-12 | XR_ITS ---
EXAMINATION: XR lumbar spine 6V w bending, XR sacroiliac joint min 3V CLINICAL INFORMATION: Reason for Exam M47.816 - Spondylosis without myelopathy or radiculopathy, lumbar region COMPARISON: Lumbar spine radiographs 12/26/2017 TECHNIQUE: 7 views of the lumbar spine. 3 views of the sacroiliac joints. FINDINGS: 5 nonrib-bearing lumbar-type vertebral bodies. Vertebral body heights are maintained. Alignment is maintained. No pars defects. Mild degenerative disc disease worst at L5-S1 with loss of disc space height and facet arthropathy. No instability on flexion extension views. Right pelvic surgical clips. Surgical suture anastomosis along the expected margin of the cecum. Sacroiliac joint spaces are maintained without significant degenerative disc disease. No appreciable pelvic fracture identified. Calcified phleboliths in the pelvis. XR/XR lumbar spine 6V w bending IMPRESSION: * Mild spondylosis of the lumbar spine, as above detailed. * Unremarkable radiographs of the sacroiliac joints.
[2022-06-12 11:20] LABS: Erythrocyte Sedimentation Rate 4 MM/HR (0-15)
[2022-06-14 13:59] LABS: CRP High Sensitivity 0.5 mg/L
== END 2022-06-12 09:00 | disposition home or self-care (01) ==
LOC: HO.LAB 08:59
PROVIDERS: PCP Physician Assistant; Visit Provider Nurse Practitioner Family
DX: M47.816 Spondylosis without myelopathy or radiculopathy, lumbar region (principal); M51.37 Other intervertebral disc degeneration, lumbosacral region; M53.3 Sacrococcygeal disorders, not elsewhere classified; M19.049 Primary osteoarthritis, unspecified hand
CPT/HCPCS: 36415; 72114; 72202; 85652; 86141

== ENCOUNTER 2022-06-29 09:07 | Outpatient (REF) | payer BC, MEDICAID, SELFPAY ==
--- NOTE | ~2022-06-29 | MR_ITS ---
EXAMINATION: MR LUMBAR SPINE WITHOUT CONTRAST CLINICAL INFORMATION: Spondylosis without myelopathy. COMPARISON: Lumbar spine radiographs 06/12/2022. TECHNIQUE: MRI of the lumbar spine was obtained using routine sequences without contrast. FINDINGS: Alignment is normal. Vertebral heights are preserved. There are chronic Schmorl's nodes involving the adjoining endplates at T11-T12. There are type I degenerative endplate changes at L5-S1. There is slight loss of intervertebral disc height and T2 signal intensity at L5-S1 related to disc degeneration. The tip of the conus medullaris is located at L1. No mass effect on the conus. Visualized distal cord signal intensity is normal. At L1-L2 and L2-L3 the annular contours are normal. No canal or neuroforaminal compromise at these 2 levels. At L3-L4 the annular contour is normal. Bilateral facet degenerative change. No canal stenosis. No mass effect on the traversing or foraminal nerve roots. At L4-L5 there is a slightly bulging disc. Bilateral facet degenerative change. No canal stenosis. No mass effect on the traversing or foraminal nerve roots. At L5-S1 there is a bulging disc. Bilateral facet degenerative change. No canal stenosis. No mass effect on the traversing or foraminal nerve roots. Limited visualization of the retroperitoneal anatomy reveals no abnormal finding. Psoas and paraspinal muscle groups are symmetric. MR/MR lumbar spine wo con IMPRESSION: There is disc degeneration at L5-S1. No canal stenosis. No mass effect on the traversing or foraminal nerve roots.
== END 2022-06-29 09:08 | disposition home or self-care (01) ==
LOC: HO.MRI 09:07
PROVIDERS: PCP Physician Assistant; Visit Provider Nurse Practitioner Family
DX: M47.816 Spondylosis without myelopathy or radiculopathy, lumbar region (principal); M51.37 Other intervertebral disc degeneration, lumbosacral region; M51.87 Other intervertebral disc disorders, lumbosacral region; M54.16 Radiculopathy, lumbar region
CPT/HCPCS: 72148

== ENCOUNTER 2022-07-10 12:42 | Outpatient (REF) | payer BC, MEDICAID, SELFPAY ==
--- NOTE | ~2022-07-10 | US_ITS ---
EXAMINATION: ULTRASOUND EXTREMITY NONVASCULAR CLINICAL INFORMATION: Local swelling, mass and lump right index finger. COMPARISON: None. TECHNIQUE: Limited ultrasound imaging to the right index finger is performed. FINDINGS: Limited ultrasound of the right adnexa reveals no lump, mass, or fluid collection. US/US extremity nonvascular [place]arsen IMPRESSION: Unremarkable ultrasound right index.
== END 2022-07-10 12:43 | disposition home or self-care (01) ==
LOC: HO.US 12:42
PROVIDERS: PCP Physician Assistant; Visit Provider Nurse Practitioner Family
DX: R22.30 Localized swelling, mass and lump, unspecified upper limb (principal)
CPT/HCPCS: 76882

== ENCOUNTER → 2022-07-20 08:45 | Outpatient (BNVA) | payer BC, MEDICAID, SELFPAY | PROVIDERS: PCP Physician Assistant; Visit Provider Urology | DX: Z13.89 Encounter for screening for other disorder (principal) ==

== ENCOUNTER 2022-07-23 10:34 | Day surgery (SDC) | payer BC, MEDICAID, SELFPAY ==
[2022-07-17 11:23] VITALS: BMI 28.1
--- NOTE | 2022-07-20 13:05 | HO.ANESPROP2 ---
Documented by User: Linda Simpson NP 07/20/22 13:06 HPI - Anesthesia Eval Consult details Narrative: 52yo M for Colonoscopy PMFSH Active Problems Active Problems: All Active Problems (Updated 06/12/22 @ 11:56 by ELISE Owen) Erectile dysfunction associated with type 2 diabetes mellitus (Acute) Back pain (Acute) Allergic rhinitis (Acute) Colon cancer screening (Acute) Annual physical exam (Acute) Left navicular fracture of foot (Acute) Left Achilles tendinitis (Acute) Witnessed apneic spells (Acute) Degenerative disc disease at L5-S1 level (Acute) Pain of left thumb (Acute) Skin lump of arm (Acute) Hand arthritis (Acute) Lumbar spondylosis (Acute) Sacroiliac joint pain (Acute) Polyarthralgia (Acute) Lumbar radiculopathy (Acute) Other intervertebral disc disorders, lumbosacral region (Acute) Muscle spasm of back (Acute) Diabetes type 2, uncontrolled (Acute) Controlled diabetes mellitus without complication, without long-term current use of insulin (Acute) Hyperlipidemia LDL goal <100 (Acute) Essential hypertension (Acute) Overweight (Acute) Past Medical History Medical History Anxiety Chronic sinusitis Controlled diabetes mellitus without complication, without long-term current use of insulin Depression Diabetes Diabetes type 2, uncontrolled Essential hypertension HTN (hypertension) Hyperlipidemia LDL goal <100 Overweight Smoking Family History Family History Mother Diabetes Hypertension Surgical History Surgical History (Updated 07/17/22 @ 11:14 by Nenita Garcia RN) H/O elbow surgery History of appendectomy History of cataract surgery History of nasal surgery History of repair of rotator cuff Hx of foot surgery Hx of rhinoplasty Social History Social History Household Members: None Housing: House Alcohol intake: former Patient Tobacco Use Status: Former Tobacco user Quit Date: 2018 Tobacco use type: Cigarette Years Smoked: 1 1/2 year ago e-Cigarette/Vaping Use: Never Used Second Hand Smoke Exposure: No Are you DNR?: No Advance Directives: No Advance Directives Information Provided: Yes Recently lost weight without trying: No Nutrition Risks: No Nutritional Risk service: No 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al status: employed 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: [employer] Cognitive needs: No Hearing needs: No Vision needs: Yes Meds Allergies Allergy/AdvReac Type Severity Reaction Status Date / Time No Known Allergies Allergy Verified 07/20/22 09:00 [No Known Allergies*] Home Medications Medication Instructions Recorded Confirmed Last Taken Type ipratropium bromide 21 mcg (0.03 2 spray intranasal BID 06/16/20 07/17/22 07/18/22 History %) nasal spray aspirin 81 mg chewable tablet 1 tab PO DAILY 07/14/20 07/17/22 07/18/22 History Exam Exam Date and Time: July 20, 2022 1305 Height,Weight and Vital Signs: Height 5 ft 8 in Weight 83.915 kg Pertinent Lab Results Pertinent Lab Results: Laboratory Tests 06/06/22 06/06/22 11:27 11:27 WBC 6.2 Hgb 16.9 Hct 50.0 Plt Count 237 BUN 19 H Creatinine 0.78 Assessment and Plan Assessment Anesthesia Assessment: Chart Reviewed Documented by User: Cami Alejandro MD 07/23/22 12:53 PMFSH Past Medical History Medical History Anxiety Chronic sinusitis Controlled diabetes mellitus without complication, without long-term current use of insulin Depression Diabetes Diabetes type 2, uncontrolled Essential hypertension HTN (hypertension) Hyperlipidemia LDL goal <100 Overweight Smoking Family History Family History Mother Diabetes Hypertension Family history of problems with anesthesia: No Surgical History Surgical History (Updated 07/17/22 @ 11:14 by Nenita Garcia RN) H/O elbow surgery History of appendectomy History of cataract surgery History of nasal surgery History of repair of rotator cuff Hx of foot surgery Hx of rhinoplasty History of Problems with Anesthesia: No Social History Social History Household Members: None Housing: House Alcohol intake: former Patient Tobacco Use Status: Former Tobacco user Quit Date: 2018 Tobacco use type: Cigarette Years Smoked: 1 1/2 year ago e-Cigarette/Vaping Use: Never Used Second Hand Smoke Exposure: No Are you DNR?: No Advance Directives: No Advance Directives Information Provided: Yes Recently lost weight without trying: No Nutrition Risks: No Nutritional Risk service: No 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al status: employed 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: [employer] Cognitive needs: No Hearing needs: No Vision needs: Yes Meds Allergies Allergy/AdvReac Type Severity Reaction Status Date / Time No Known Allergies Allergy Verified 07/20/22 09:00 [No Known Allergies*] Home Medications Medication Instructions Recorded Confirmed Last Taken Type ipratropium bromide 21 mcg (0.03 2 spray intranasal BID 06/16/20 07/17/22 07/18/22 History %) nasal spray aspirin 81 mg chewable tablet 1 tab PO DAILY 07/14/20 07/17/22 07/18/22 History Exam Airway Mallampati Class: II TM Dist: >3cm Neck ROM: Full Heart: rrr Lungs: cta Assessment and Plan Assessment Anesthesia Assessment: Anesthesia Plan Discussed Final Anesthetic Review Family History of Problems with Anesthesia: No History of Problems with Anesthesia: No NPO: Yes ASA Class: III Final Preanesthetic Review: No Changes in Pt Med Stat, Meds/Allgs Chart Reviewed, Consent Obtained/Reviewed and Anes Risks/Benef Reviewed Patient Risk: Low Procedure Risk: Low Anesthetic Plan Anesthetic Plan: MAC: Disposition: Standard PACU
[2022-07-23 11:21] VITALS: BP 144/97; PULSE 58; RESP 17; TEMP 37.1; O2SAT 97
[2022-07-23 11:23] LABS: Anion Gap 10 (12-20); Carbon Dioxide 29 mmol/L (22-29); Chloride 107 mmol/L (96-108); Potassium 4.7 mmol/L (3.3-5.1); Sodium 141 mmol/L (135-145)
[2022-07-23 11:33] LABS: Glucose, Whole Blood 159 mg/dL (60-115)
[2022-07-23] MEDS: Lactated Ringers 1,000 ML 100 ML IVCONT (11:52)
--- NOTE | 2022-07-23 12:22 | MHC.SHP ---
Pre-Procedural Eval Section A Date of Service: 07/23/22 The patient is an INPATIENT: No The History & Physical has been completed within 30 days and I have reviewed it.: No Section B Chief Complaint: screening Relevant Family History (Specify if Yes): No Relevant Social History: Tobacco Use (former smoker) Present Medications: see Short Stay Collaborative assessment Medical History: Significant History (Controlled diabetes mellitus without complication, without long-term current use of insulin Depression Diabetes Diabetes type 2, uncontrolled Essential hypertension HTN (hypertension) Hyperlipidemia LDL goal <100 Overweight Smoking) History of Previous Operations: Relevant previous surgery/procedure and date(s) (History of appendectomy History of cataract surgery History of nasal surgery History of repair of rotator cuff Hx of foot surgery Hx of rhinoplasty) Allergies: Allergies Allergy/AdvReac Type Severity Reaction Status Date / Time No Known Allergies Allergy Verified 07/20/22 09:00 [No Known Allergies*] Review of Systems Sugical H&P ROS: Negative: Constitution, Cardiovascular, Respiratory and Gastrointestinal Exam Surgical H&P Exam: Normal: Heart, Normal: Lungs, Normal: Extremities and Normal: Abdomen Plan Diagnosis/Plan: Unchanged I have reviewed the history and physical and performed a pertinent physical examination on my patient. No changes have occurred unless specified. Time Spent With Patient Time: Total time managing care of this patient today ____ minutes.
--- NOTE | 2022-07-23 13:18 | P.BOP_ITS ---
Brief Operative Note Date of Service: 07/23/22 Pre-op diagnosis: Colon cancer screening Post-op diagnosis: other (COLON POLYP, DIVERTICULOSIS, HEMORRHOIDS) Procedure: COLONOSCOPY TILL CECUM WITH SNARE POLYPECTOMY Surgeon: William Bower MD Anesthesia: MAC Was an Rv Body Mechanic used for this Procedure?: Yes Rv Body Mechanic: Marguerite Ortega Estimated blood loss (mL): 0 Pathology: other (A. sigmoid polyp) Condition: stable Disposition: PACU
--- NOTE | 2022-07-23 13:18 | W.PM.OPN ---
Operative Note Operative Note Date of Service: 07/23/22 Narrative: Pre-op diagnosis: Colon cancer screening Post-op diagnosis:?other (COLON POLYP, DIVERTICULOSIS, HEMORRHOIDS) Surgeon: William Bower MD Anesthesia:?MAC COLONOSCOPY TILL CECUM WITH SNARE POLYPECTOMY Consent: Indications for the procedure and potential complications of bleeding, perforation, reaction to medications and missed diagnosis were discussed with the patient and informed consent was obtained. Instrument: Olympus PCF H 190 L variable stiffness pediatric colonoscope Monitoring: Vital signs and clinical assessment, intermittent blood pressure monitoring, continuous EKG monitoring, Pulse oximetry and Carbon Dioxide monitoring were done throughout the procedure. Colon withdrawl time was 15 minutes. Procedure: The patient was placed in the left lateral decubitis position and pre-procedure medications were administered. After a digital rectal examination of the ano-rectum, the video colonoscope was inserted into the rectum and advanced through the colon to the cecum. The colonoscope was slowly withdrawn in a retrograde panoramic fashion and the colon mucosa was carefully examined including a retroflexed view of the rectum. Findings and interventions are described below. Procedure Difficulty: Without difficulty Findings: Terminal Ileum: Not evaluated Cecum: Normal Ascending Colon: Normal Transverse Colon: Normal Descending Colon: Moderate diverticulosis Sigmoid Colon: A 6-7 mm sessile polyp removed with a cold snare. Moderate diverticulosis Rectum: Normal Ano-rectum: Moderate internal hemorrhoids Colon preparation: Excellent Impression and Post Procedure Diagnosis: Colonoscopy Findings: One small polyp removed Moderate diverticulosis seen in the left colon Moderate hemorrhoids on retroflexed exam. Plan: Await pathology results Patient has an appointment on 08/06/22 in the GI Clinic with RICHY Smith. Repeat Colonoscopy interval based on path results - in 5 years if polyps are adenomatous and 10 years if polyps are hyperplastic. Above findings were reviewed with the patient and colon polyps and diverticulosis handouts were given in the discharge area
[2022-07-23 13:53] VITALS: BP 110/66; PULSE 62; RESP 16; TEMP 36.4; O2SAT 94
[2022-07-23 14:08] VITALS: BP 115/67; PULSE 74; RESP 16; TEMP 36.9; O2SAT 94
[2022-07-23 14:19] VITALS: BP 121/77; PULSE 72; RESP 16; O2SAT 96
== END 2022-07-23 14:43 | disposition home or self-care (01) ==
PROVIDERS: Nurse Practitioner; PCP Physician Assistant; Visit Provider Internal Medicine Gastroenterology
PROC: 0DJD8ZZ Inspection of Lower Intestinal Tract, Via Natural or Artificial Opening Endoscopic (ICD-10-PCS; CPT 45378; principal; 2022-07-23 12:00)
DX: Z12.11 Encounter for screening for malignant neoplasm of colon (principal); K63.5 Polyp of colon; K57.90 Diverticulosis of intestine, part unspecified, without perforation or abscess without bleeding; K64.8 Other hemorrhoids; I10 Essential (primary) hypertension; E78.5 Hyperlipidemia, unspecified; Z79.4 Long term (current) use of insulin; E11.65 Type 2 diabetes mellitus with hyperglycemia
CPT/HCPCS: 45385; 36415; 80051; 82947; 88305; 97803

== ENCOUNTER 2022-08-01 08:30 | Outpatient (RCR) | payer BC, MEDICAID, SELFPAY ==
--- NOTE | 2022-08-01 09:45 | MHC.OT.DC ---
[address] [phone] F: [phone] Occupational Therapy Discharge Note Provider: Natalie Mendoza Diagnosis: Left hand pain Date of Surgery: Date of Evaluation: 07/09/22 Date of Discharge: 08/01/22 Treatments to Date: 4 Cancellations to Date: 0 No Shows to Date: 0 Discharge Status: Achieved Goals Improved Function Independent with HEP Discharge Summary: Pt has been out of work over the past 2 weeks due to taking sick time for his thumb for one week and one week vacation time. His left trigger thumb and edema are resolved. Pain localized to thenar muscle, improved to discomfort with lat pinch . Mgmt Analyst and pinch strength WNL. Pt is not returning to his job therefore he should be able to avoid re injury. Pt highly motivated , demonstrates good technique with HEP. Goals met Electronically Signed By: Atiya Pradhan OT CHT CLT Reviewed/agree with student documentation: N/A Therapist: Please Sign and return to therapist, thank you for your referral.
== END 2022-08-01 09:46 | disposition home or self-care (01) ==
LOC: HO.OT 08:30
PROVIDERS: Visit Provider Nurse Practitioner Family
DX: M79.645 Pain in left finger(s) (principal)
CPT/HCPCS: 97035; 97110; 97140; 97165

== ENCOUNTER → 2022-08-02 09:31 | Outpatient (BNVA) | payer BC, MEDICAID, SELFPAY | PROVIDERS: PCP Physician Assistant; Visit Provider Nurse Practitioner Family | DX: Z13.89 Encounter for screening for other disorder (principal) ==

== ENCOUNTER → 2022-08-06 07:58 | Outpatient (BNVA) | payer BC, MEDICAID, SELFPAY | PROVIDERS: PCP Physician Assistant; Referring Provider Physician Assistant; Visit Provider Physician Assistant | DX: Z13.89 Encounter for screening for other disorder (principal) ==

== ENCOUNTER → 2022-09-05 09:00 | Outpatient (BNVA) | payer OTHER, SELFPAY | PROVIDERS: PCP Physician Assistant; Visit Provider Orthopaedic Surgery | DX: M19.042 Primary osteoarthritis, left hand (principal); M65.312 Trigger thumb, left thumb; E11.65 Type 2 diabetes mellitus with hyperglycemia; S60.551A Superficial foreign body of right hand, initial encounter; X58.XXXA Exposure to other specified factors, initial encounter; Y93.9 Activity, unspecified; Y92.9 Unspecified place or not applicable; Y99.8 Other external cause status | CPT/HCPCS: 99202; J1100 ==

== ENCOUNTER → 2022-10-02 09:25 | Outpatient (BNVA) | payer OTHER, SELFPAY | PROVIDERS: PCP Physician Assistant; Visit Provider Orthopaedic Surgery | DX: M65.312 Trigger thumb, left thumb (principal); E11.65 Type 2 diabetes mellitus with hyperglycemia; S60.551A Superficial foreign body of right hand, initial encounter; W22.8XXA Striking against or struck by other objects, initial encounter; Y93.9 Activity, unspecified; Y92.9 Unspecified place or not applicable; Y99.8 Other external cause status | CPT/HCPCS: 99212 ==

== ENCOUNTER → 2022-10-18 09:14 | Outpatient (BNVA) | payer OTHER, SELFPAY | PROVIDERS: PCP Physician Assistant; Visit Provider Student in an Organized Health Care Education/Training Program | DX: M19.041 Primary osteoarthritis, right hand (principal); M19.042 Primary osteoarthritis, left hand; Z79.82 Long term (current) use of aspirin | CPT/HCPCS: 97803; 99202 ==

== ENCOUNTER 2022-11-05 08:00 | Outpatient (RCR) | payer MEDICAID, OTHER, SELFPAY ==
--- NOTE | 2022-09-03 08:58 | MHC.PT.EP ---
[facility] [place] Office [place] Office [place] Office [address] Arlene Simon [address] [phone] F: [phone] F: [phone] F: [phone] F: [phone] Physical Therapy Plan of Care Date of Evaluation: Date of Surgery: Diagnosis: intervertebral disc degeneration Assessment: Patient is a 52 year old R handed male who presents with s/s consistent with intervertebral disc degeneration, lumbar region. 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 Patient past medical history includes DM. Current impairments include pain, posture, ROM, strength, flexibility, activity tolerance and functional mobility. Functional limitations include decreased ability to walk, sit, stand, drive, lift, bend, and carry and sleep. Patient is motivated with good rehab potential. Skilled PT will address impairments and functional limitations in order to achieve goals. Frequency and Duration: The patient will be seen 2x/week for 5 weeks Short Term Goals: I with HEP - 2 weeks Lumbar AROM rotation to 75% pain free - 3 weeks 90/90 lacking 25 or less b/l - 3 weeks Jail Goals: Able to sit/stand/drive/walk > 30 minutes without increased pain - 5 weeks Oswestry <30% - 5 weeks Hip strength 4+/5 grossly - 5 weeks Gastroc min tightness b/l - 5 weeks Treatment Plan: Modalities to reduce pain, spasms and effusion. Manual therapy to restore motion and function. Therapeutic exercise to improve strength and flexibility. Neuromuscular re-education for posture and balance. Therapeutic activities to return to functional activities of daily living. Electronically signed by: Stiven Diana, PT Please sign and return to therapist. Thank you for your referral.
--- NOTE | 2022-12-04 07:18 | MHC.PT.DC ---
[facility] [place] Office [place] Office [place] Office [address] Arlene Simon [address] [phone] F: [phone] F: [phone] F: [phone] F: [phone] Physical Therapy Discharge Report Diagnosis: intervertebral disc degeneration Date of Surgery: Date of Evaluation: 09/03/22 Date of Discharge: 11/09/22 Treatments to Date: 16 Cancellations to Date: No Shows to Date: Discharge Status: Improved Function Independent with HEP Recommend MD Follow-up Discharge Summary: 11/05/22: we reviewed HEP. I with HEP. 90/90 lacking 20 b/l. AROM 75% rotation. gastroc with min tightness. Hip strength 4+/5 grossly. Oswestry 56%. Able to sit/stand/drive/walk > 30 minutes without increased pain. met or progressed towards all goals. appropriate to d/c to HEP at this time. 10/30/22: pt responding well to manual therapy. added piriformis stretching today with no adverse reactions. d/c to HEP NV. 10/24/22: re-issued stretching HEP. we will transition to d/c to HEP in 2 visits. Pt with reduced tissue tension today. 10/22/22: pt has been feeling better overall with skilled PT. he progressed with strength today. we will continue to develop HEP and d/c to HEP in 3 visits. 10/17/22: pt has been feeling better overall with skilled PT with focus on relieving soft tissue tension over the course of the last 2 visits. improved compliance with HEP. 10/15/22: pt with increased tissue tension today which we address with manual intervention. encouraged him to improve HEP compliance due to increased s/s over the last 2 weeks. 10/03/22: Pt with increased discomfort today for unknown reason. we used IFC to mitigate pain. good response. we will resumed core stretching and flex NV. 10/01/22: pt has been responding very well to stretching program. he has become more and more I with program but still requires cues for breathing during exertion. 09/26; Pt has decreased lordotic curve. Pt R rot L/S. Pt unable to SB due to pain.tissue tension is taunt. Pt Pt noted increased mobility after RX. 09/24/22: pt has been feeling better overall, feeling looser. we held on progression today since he had to leave a bit early. we will progress Nv. 09/19/22: pt has responds well to program. we will update HEP Nv and encourage good carryover into HEP. we will also attempt to progress strength without valsalva. 09/17/22: pt has been feeling better overall with some soreness. poor core awareness still, tends to valsalva with challenge to core. body mechanics require improvement as well. 09/12: Pt ed to trial LTR, SKTC and HSS in the AM and assess discomfort with morning activities. Again trialed a standing core exercise palov press though Pt reported increasing pain with this; this was improved some with flexion stretching and PPT. d/t decreased tolerance for standing activities Pt was asked about walking for exercise/ in general; he reports L toe fracture 2-3 years ago with hardware removal and persists with pain with walking; ed that decreased mobility in general over the past 2-3 years can contribute to his stiffness. Good eun for other exercises; cues need to decrease intensity of PPT as he is forcing and bearing down a bit and to breathe. 09/10: Some Lumbar soreness after trialed shoulder ext with TrAC which was improved with lumbar seated stretch. initiated TrAC in with handout for TrAC and brace august. no adverse effects. noted. 09/05/22: progressed strength and hip stretching. no adverse reactions. we will update HEP NV. Patient is a 52 year old R handed male who presents with s/s consistent with intervertebral disc degeneration, lumbar region. 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 Patient past medical history includes DM. Current impairments include pain, posture, ROM, strength, flexibility, activity tolerance and functional mobility. Functional limitations include decreased ability to walk, sit, stand, drive, lift, bend, and carry and sleep. Patient is motivated with good rehab potential. Skilled PT will address impairments and functional limitations in order to achieve goals. Electronically signed by: Stiven Diana, PT Please sign and return to therapist. Thank you for your referral.
== END 2022-12-04 07:18 | disposition home or self-care (01) ==
LOC: HO.PTCHIC 08:00
PROVIDERS: PCP Physician Assistant; Visit Provider Nurse Practitioner Family
DX: M47.816 Spondylosis without myelopathy or radiculopathy, lumbar region (principal); M51.37 Other intervertebral disc degeneration, lumbosacral region; M53.3 Sacrococcygeal disorders, not elsewhere classified; M62.830 Muscle spasm of back
CPT/HCPCS: 97014; 97110; 97140; 97162

== ENCOUNTER 2022-11-09 06:59 | Outpatient (REF) | payer OTHER, SELFPAY ==
[2022-11-09 07:29] LABS: Hematocrit 46.8 % (42.0-52.0); Mean Corpuscular HGB Conc 34.2 g/dl (31.0-36.0); Mean Corpuscular Hemoglobin 30.4 pg (27.0-33.0); Mean Corpuscular Volume 88.8 fL (80.0-98.0); Mean Platelet Volume 9.8 fL (9.4-12.4); Platelet Count 253 X10*3/uL (160-400); Red Blood Count 5.27 X10*6/uL (4.60-5.80); Red Cell Distribution Width 12.7 % (11.0-16.0); White Blood Count 5.7 X10*3/uL (4.8-10.8)
[2022-11-09 07:34] LABS: Estimated Average Glucose 163 mg/dL; Hemoglobin A1c % 7.3 %
[2022-11-09 08:01] LABS: Alanine Aminotransferase 43 U/L (0-40); Albumin Level 4.2 g/dL (3.5-5.0); Alkaline Phosphatase 71 U/L (39-117); Anion Gap 15 (12-20); Aspartate Amino Transferase 22 U/L (5-37); Bilirubin Total 0.4 mg/dL (0.0-1.0); Blood Urea Nitrogen 18 mg/dL (9-16); Calcium 9.1 mg/dL (8.4-10.2); Carbon Dioxide 22 mmol/L (22-29); Chloride 109 mmol/L (96-108); Cholesterol 155 mg/dL; Estimated Glomerular Filt Rate > 60; Glucose Fasting 167 mg/dL (60-99); HDL Cholesterol 57 mg/dL; LDL Cholesterol Calculated 84 mg/dl; Potassium 4.8 mmol/L (3.3-5.1); Sodium 141 mmol/L (135-145); Triglycerides 71 mg/dL
[2022-11-09 08:15] LABS: Prostate Specific Antigen 0.62 ng/mL (<0.05-4.0)
[2022-11-09 09:03] LABS: Microalbumin Urine < 5.0 mg/L
== END 2022-11-09 07:00 | disposition home or self-care (01) ==
LOC: HO.LAB 06:59
PROVIDERS: Urology; PCP Physician Assistant; Visit Provider Physician Assistant
DX: Z12.5 Encounter for screening for malignant neoplasm of prostate (principal); E11.69 Type 2 diabetes mellitus with other specified complication; E11.65 Type 2 diabetes mellitus with hyperglycemia; N13.8 Other obstructive and reflux uropathy; N40.1 Benign prostatic hyperplasia with lower urinary tract symptoms; N52.1 Erectile dysfunction due to diseases classified elsewhere; I10 Essential (primary) hypertension
CPT/HCPCS: 36415; 80053; 80061; 82043; 83036; 84153; 85027

== ENCOUNTER 2022-12-12 07:38 | Outpatient (RCR) | payer OTHER, SELFPAY ==
--- NOTE | 2022-12-26 08:39 | MHC.OT.DC ---
[address] [phone] F: [phone] Occupational Therapy Discharge Note Patient Name: Stevan Reyes Provider: Nieves Currie Diagnosis: Bilateral hand OA Date of Surgery: Date of Evaluation: 12/12/22 Date of Discharge: 12/26/22 Treatments to Date: 1 Cancellations to Date: 3 No Shows to Date: 0 Discharge Status: Patient Elected to Stop Recommend MD Follow-up Discharge Summary: See eval for details. Pt seen 1x for eval and treatment. Pt cancelled all follow up appointments due to having to watch his grandchildren. Pt previously seen for 5 visits. Electronically Signed By: Atiya Pradhan OT CHT CLT Reviewed/agree with student documentation: Therapist: Please Sign and return to therapist, thank you for your referral.
== END 2022-12-26 08:40 | disposition home or self-care (01) ==
LOC: HO.OT 07:38
PROVIDERS: PCP Physician Assistant; Visit Provider Student in an Organized Health Care Education/Training Program
DX: M19.041 Primary osteoarthritis, right hand (principal); M19.042 Primary osteoarthritis, left hand
CPT/HCPCS: 29131; 97166; 97760

== ENCOUNTER 2023-01-30 14:12 | Outpatient (AMB) | payer OTHER, SELFPAY ==
--- NOTE | 2023-01-30 14:24 | A.OFFVIS_ITS ---
Intake Vital Signs 01/30/23 14:39 Height 5 ft 8 in Weight 183 lb BMI 27.8 Intake Visit Reasons: OV- discuss Right 2nd MCP foreign body removal Intake Note: Stevan 52 yr old male who is right hand dominant, presents today for his Right index finger 2nd MCP foreign body to discuss removal. Last seen on 10/02/22, where lowering his sugar levels were discuss. Currently states his A1C is a 7.3. States he is also having cont'd locking of his left thumb s/p trigger injection from 09/05/22 Allergies No Known Allergies [No Known Allergies*] Allergy (Verified 01/30/23 14:37) HPI OV- discuss Right 2nd MCP foreign body removal HPI Details Stevan is a 52 year old right hand dominant man who returns with complaints of left trigger thumb. He received an injection on 09/05/22, and says that he continues to have locking of his thumb. He would also like to discuss foreign body removal from his right second MCP joint. He thinks this is still in there and has been causing him pain. He was last seen on 10/02/22 where surgery was discussed but his HgA1c was too high at the time. it is now below 8.0% and he would like to have surgery PFSH Medical History Anxiety Chronic sinusitis Controlled diabetes mellitus without complication, without long-term current use of insulin Depression Diabetes Diabetes type 2, uncontrolled Diverticulosis of colon Essential hypertension HTN (hypertension) Hyperlipidemia LDL goal <100 Overweight Smoking Surgical History H/O elbow surgery History of appendectomy History of cataract surgery History of nasal surgery History of repair of rotator cuff Hx of colonoscopy Hx of foot surgery Hx of rhinoplasty Family History Mother Diabetes Hypertension Father Medical history unknown Social History (Updated 01/30/23 @ 14:38 by NIKKI Wilde) Household Members: None Housing: House Alcohol intake: former Patient Tobacco Use Status: Former Tobacco user Quit Date: 2018 Tobacco use type: Cigarette Years Smoked: 1 1/2 year ago e-Cigarette/Vaping Use: Never Used Second Hand Smoke Exposure: No service: No 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al status: unemployed 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 Cognitive needs: No Hearing needs: No Vision needs: Yes Review of Systems Const All systems reviewed & are unremarkable except as noted in HPI and below Physical Exam Vital Signs: BMI result Body Mass Index 27.8 Const General: no acute distress and alert Orientation/consciousness: patient oriented x3 Neuro General: patient oriented x3 Extrem Other: Evaluation of Left Upper Extremity: The patient is alert, oriented, and in no acute distress Neuro: Median, Ulnar, Radial nerves motor and sensory intact and sensation is normal to the tips of all digits No thenar or intrinsic wasting Good APB muscle belly firing and good finger cross Vascular: Cap refill brisk ROM: He can make a fist and extend all his digits No locking or catching of the left thumb seen today Tender over the left thumb A1 denise and flexor tendon across the thenar mass Not tender over the basal joint Generalized early arthritis changes with some enlargement of the PIP joints bilaterally Concerning his right 2nd MCP joint: I can see slight discoloration under the skin and I can palpate a foreign body that may be pencil lead, measuring ~4mm in length over the dorsal ulnar aspect of the 2nd MCP joint Mild tenderness over 2nd MCP joint Radiographs: 3 views of the left hand from 06/05/22 were reviewed by me today in clinic. They show no fractures or dislocations. He has some early arthritic changes in the basal joint. 3 views of the right hand from 10/07/20 were reviewed by me today in clinic. They show no fractures or dislocations. He has some arthritic changes in the 2nd MCP joint. No evidence of radiopaque foreign body or pencil lead Psych Appearance: grossly normal Affect: normal affect Attitude: cooperative Assessment & Plan Assessment & Plan (1) Trigger thumb, left thumb: Code(s): M65.312 - Trigger thumb, left thumb (2) Diabetes type 2, uncontrolled: Code(s): E11.65 - Type 2 diabetes mellitus with hyperglycemia Qualifiers: Glycemic state: with hyperglycemia Qualified Code(s): E11.65 - Type 2 diabetes mellitus with hyperglycemia (3) Foreign body of right hand: Code(s): S60.551A - Superficial foreign body of right hand, initial encounter Plan Assessment & Plan: 1. Right hand foreign body Dorsal aspect of the 2nd MCP joint, patient believes this is pencil lead Measuring ~4mm in length He would like to proceed with surgery The risks and benefits of operative treatment were discussed with the patient and the patient wishes to proceed with surgery. These risks include, but are not limited to risk of damage to blood vessels, nerves, tendons, infection, re currence, incomplete relief of preoperative symptoms, persistent pain, possible need for further surgery and the risks associated with regional blocks and anesthesia. The plan is to take the patient to the operating room sometime in the next few weeks for the following procedures: 1. Right 2nd MCP foreign body removal, under local All of the preoperative paperwork including the consent was filled out today. All the patient's questions were answered. The patient understands that they will be contacted by our show design supervisor soon to schedule this procedure He is a Diabetic, and says his most recent HgA1c was 7.3% on 11/07/22 He denies blood thinners, asthma, heart, lung, kidney issues 2. Left trigger thumb, S/P injection Date of Injection: 09/05/22 I educated him about this condition He says he still has locking & catching, though we did not see any locking or catching today in clinic. 3. Bilateral generalized hand osteoarthritis With early enlargement of the PIP joints, no significant radiographic findings in the PIP joints at this time. I educated him about this condition I discussed activity modification, he should work on ROM exercises at home He should limit or avoid any activities which increase his symptoms He may benefit from a steroid injection in the future He can follow up prn Scribed for Tata Mariscal MD by Addy Daly, medical appointment clerk, on 01/30/23 at 3:15 PM, EST. Coding Level of Care Code Est Pt Level 3 (97218) Diagnoses Trigger thumb, left thumb M65.312 Diabetes type 2, uncontrolled E11.65 Glycemic state: with hyperglycemia Foreign body of right hand S60.554G
[2023-01-30 14:39] VITALS: BMI 27.8
== END 2023-01-30 15:35 | disposition home or self-care (01) ==
PROVIDERS: PCP Physician Assistant; Visit Provider Orthopaedic Surgery
DX: S60.551A Superficial foreign body of right hand, initial encounter (principal); M65.312 Trigger thumb, left thumb
CPT/HCPCS: 99214

== ENCOUNTER → 2023-01-30 14:12 | Outpatient (BNVA) | payer OTHER, SELFPAY | PROVIDERS: PCP Physician Assistant; Visit Provider Orthopaedic Surgery ==

== ENCOUNTER 2023-02-24 13:25 | Emergency (ER) | payer OTHER, SELFPAY ==
--- NOTE | ~2023-02-24 | CT_ITS ---
EXAMINATION: CT ABDOMEN AND PELVIS WITH CONTRAST CLINICAL INFORMATION: Left-sided abdominal pain COMPARISON: CT abdomen and pelvis 02/05/2021, CT abdomen and pelvis 01/30/2014 TECHNIQUE: Multidetector volumetric images were obtained from the superior aspect of the liver through the pubic symphysis following administration 85 mL of Omnipaque 350 intravenous contrast. Sagittal and coronal reformatted images were obtained on the technologist's workstation. Oral contrast: No This CT examination was performed using dose optimization techniques as appropriate, variously including the following: *Automated exposure control *Adjustment of mA and/or kV according to patient size (this includes techniques or standardized protocols for targeted exams where dose is matched to indication/reason for exam; i.e. extremities or head) *Use of iterative reconstruction technique DLP: 591 mGy-cm FINDINGS: LUNG BASES: The visualized lung bases are unremarkable. LIVER, GALLBLADDER, AND BILIARY TREE: The liver is normal in size, shape, and attenuation. No focal hepatic lesion or biliary ductal dilatation is present. The gallbladder is unremarkable with no evidence of radiopaque gallstones, gallbladder wall thickening, or obvious pericholecystic inflammatory changes. PANCREAS: Unremarkable. SPLEEN: Unremarkable. ADRENAL GLANDS: Unremarkable. KIDNEYS AND URETERS: The kidneys are normal in size, shape, and attenuation. No hydronephrosis, hydroureter, or calculi seen. No perinephric stranding. Cyst in the right upper pole measuring 1.1 cm, unchanged since 2013 BLADDER: Unremarkable. GASTROINTESTINAL TRACT: The small and large bowel are unremarkable. The appendix is surgically absent. ABDOMINAL WALL: No significant hernia is appreciated. LYMPH NODES: Normal. VASCULAR: Unremarkable. PELVIC VISCERA: Unremarkable. OSSEOUS STRUCTURES: Unremarkable. CT/CT abdomen pelvis w IV con IMPRESSION: No findings to explain patient's left-sided abdominal pain. Fleischner guidelines were followed.
[2023-02-24 13:58] VITALS: PULSE 93; RESP 18; TEMP 36.8; O2SAT 96; BMI 26.6
--- NOTE | 2023-02-24 13:59 | ED_ITS ---
HPI - Abdominal Pain General Chief Complaint: Nausea/Vomiting/Diarrhea Stated Complaint: Vomiting, Nausea Time Seen by Provider: 02/24/23 16:32 Source: patient, RN notes reviewed and old records reviewed Mode of arrival: ambulatory Limitations: no limitations (Patient was offered interpreting services but declines) History of Present Illness HPI narrative: 52-year-old male with past medical history significant for diabetes, hyperlipidemia, hypertension presents for evaluation of abdominal pain and vomiting. Patient reports that he has been vomiting for the last 2 days. Denies any sick contacts. Denies any history abdominal surgeries He reports some left-sided abdominal pain His pain is a 5/10, achy Denies any black or bloody stool Denies any fevers or chills No other complaints or concerns at this time Related Data Home Medications Medication Instructions Recorded Confirmed ipratropium bromide 21 mcg (0.03 2 spray intranasal BID 06/16/20 11/15/22 %) nasal spray aspirin 81 mg chewable tablet 1 tab PO DAILY 07/14/20 11/15/22 Previous Rx's Medication Instructions Recorded lidocaine 4 % topical patch 1 patch topical DAILY PRN pain #10 02/13/21 (Aspercreme (lidocaine)) ea hydroxyzine HCl 50 mg tablet 50 mg PO BEDTIME 30 days #30 tabs 06/01/21 fluticasone propionate 50 1 spray intranasal DAILY #16 grams 09/02/21 mcg/actuation nasal spray,suspension repaglinide 0.5 mg tablet See Rx Instructions PO TID #150 10/19/21 tabs metformin 500 mg tablet,extended 1,000 mg PO BID #360 tabs 12/27/21 release 24 hr montelukast 10 mg tablet 10 mg PO DAILY 90 days #90 tabs 03/28/22 pantoprazole 40 mg tablet,delayed 40 mg PO DAILY 90 days #90 tabs 03/28/22 release lisinopril 10 mg tablet 10 mg PO DAILY 90 days #90 tabs 04/17/22 empagliflozin 25 mg tablet 25 mg PO QAM #90 tabs 06/11/22 (Jardiance) gabapentin 300 mg capsule 300 mg PO BEDTIME pain 30 days #30 06/12/22 caps methocarbamol 750 mg tablet 750 mg PO TID PRN muscle spasm 30 06/12/22 days #90 tabs methylcellulose (laxative) 500 mg 500 mg PO TID #90 tabs 08/06/22 tablet (Citrucel) blood sugar diagnostic (FreeStyle #100 ea 08/07/22 Lite Strips) dulaglutide 0.75 mg/0.5 mL 0.75 mg (0.5 mL) subcut QWEEK #2 mL 10/24/22 subcutaneous pen injector (Trulicity) blood-glucose meter (FreeStyle #1 ea 11/15/22 [place] Lite kit) atorvastatin 40 mg tablet 40 mg PO DAILY 90 days #90 tabs 11/17/22 meloxicam 15 mg tablet 15 mg PO DAILY PRN for pain #30 11/27/22 tabs tadalafil 10 mg tablet 10 mg PO .As needed PRN sexual 12/26/22 activity 90 days #90 tabs ondansetron 4 mg disintegrating 4 mg PO Q8H PRN nausea and 02/24/23 tablet vomiting #20 tabs Allergies Allergy/AdvReac Type Severity Reaction Status Date / Time No Known Allergies Allergy Verified 01/30/23 14:37 [No Known Allergies*] Review of Systems Constitutional: Denies chills, Denies fever(s) and Reports headache(s) Reports headache(s) Cardiovascular: Denies chest pain and Denies dyspnea Respiratory: Denies cough and Denies dyspnea Gastrointestinal: Reports abdominal pain, Reports nausea and Reports vomiting Genitourinary: Denies dysuria Musculoskeletal: Denies back pain Skin/Breast: Denies rash Reports headache(s) PMFSH Past Medical History Medical History Anxiety Chronic sinusitis Controlled diabetes mellitus without complication, without long-term current use of insulin Depression Diabetes Diabetes type 2, uncontrolled Diverticulosis of colon Essential hypertension HTN (hypertension) Hyperlipidemia LDL goal <100 Overweight Smoking Surgical History H/O elbow surgery History of appendectomy History of cataract surgery History of nasal surgery History of repair of rotator cuff Hx of colonoscopy Hx of foot surgery Hx of rhinoplasty Family History Family History Mother Diabetes Hypertension Father Medical history unknown Social History Social History (Updated 01/30/23 @ 14:38 by NIKKI Wilde) Household Members: None Housing: House Alcohol intake: never Patient Tobacco Use Status: Former Tobacco user Quit Date: 2018 Tobacco use type: Cigarette Years Smoked: 1 1/2 year ago Smoked in Last 30 Days: No e-Cigarette/Vaping Use: Never Used Second Hand Smoke Exposure: No Use of substances other than those prescribed or required for medical reasons: No Advance Directives: No Advance Directives Information Provided: No service: No 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al status: unemployed 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 Cognitive needs: No Hearing needs: No Vision needs: Yes Physical Exam ED Vital Signs: Vital Signs - 24 hr 02/24/23 13:58 Temperature 98.3 F Pulse Rate 93 Respiratory Rate 18 Pulse Oximetry 96 Oxygen Delivery Method Room Air BMI result Body Mass Index 26.6 Const General: healthy appearing, comfortable, no acute distress, alert and awake Nutritional Appearance: well nourished Orientation/consciousness: patient oriented x3 HENMT Head: Yes normocephalic and Yes atraumatic Eyes Eyelids: Yes eyelids normal Conjunctivae: conjunctivae normal Sclerae: sclerae normal Corneas: corneas normal Pupils: Equal, round and reactive pupils present EOM: EOMs intact bilaterally Neck Neck: Yes full ROM Resp Effort & Inspection: normal respiratory effort, able to speak in complete sentences and not labored GI Inspection: No distended Palpation (GI): Soft to palpation, not firm, Tenderness to palpation present (GI) in the LLQ and in the LUQ, Guarding due to palpation present (GI) in the LLQ and in the LUQ and not rigid Skin General skin exam: elasticity normal Neuro General: patient oriented x3 Cranial nerves: Yes CN's II-XII intact bilaterally, Yes Equal, round and reactive pupils present and Yes Bilaterally intact EOM present Cognition (Neuro): normal cognition Extrem Other: Moving all extremities well without any obvious deformities Course Course Course Narrative: This is a rapid medical exam. Deferred additional HPI, ROS, PE to primary provider. 52 yo male with history of DM, HTN, HLD here with complaints of left upper abdominal pain, vomiting since saturday. Will obtain labs, UA, COVID screen. VSS Reevaluation(s) Reevaluation #1: CT scan results without any concerning abnormalities. Patient's it is likely attributed to gastroenteritis. Will discharge with Zofran. He reports feeling better after fluids, Zofran, Toradol Time: 18:31 Medical Decision Making Medical Decision Making MDM Narrative: 52-year-old male presents for evaluation of abdominal pain and vomiting. His symptoms started 2 days ago. He complains of a headache which is likely related to his vomiting and possibly slight degree of dehydration. On exam he is quite tender and guarding in the left mid upper abdomen. Given this tenderness with a CT scan of the abdomen pelvis to rule out severe intra-abdominal pathology. Patient's labs are reassuring vital signs are stable. Will treat with IV fluids, Toradol and Zofran Differential Diagnosis Differential Diagnoses: The differential diagnosis associated with the presentation includes Bowel obstruction Peptic ulcer disease Stomach perforation Acute nausea/vomiting Viral gastroenteritis Pancreatitis Lab Data MDM Lab Attestation statement: I reviewed the patient's lab results. No leukocytosis, no significant anemia. No electrolyte abnormalities, normal renal function. Glucose slightly elevated to 138 but no evidence of DKA. 02/24/23 14:16 02/24/23 14:16 Labs: Lab Results 02/24/23 02/24/23 02/24/23 Range/Units 14:16 14:16 14:16 WBC 6.2 (4.8-10.8) X10*3/uL RBC 5.18 (4.60-5.80) X10*6/uL Hgb 15.6 (14.0-18.0) g/dl Hct 44.5 (42.0-52.0) % MCV 85.9 (80.0-98.0) fL MCH 30.1 (27.0-33.0) pg MCHC 35.1 (31.0-36.0) g/dl RDW 12.8 (11.0-16.0) % Plt Count 179 D (160-400) X10*3/uL MPV 9.7 (9.4-12.4) fL Immature Gran % (Auto) 0.2 (0.0-0.4) % Neut % (Auto) 73.1 H (45-73) % Lymph % (Auto) 14.2 L (20-40) % [place] % (Auto) 10.8 (2-11) % Eos % (Auto) 1.4 (0-4) % Baso % (Auto) 0.3 (0-2) % Lymph # (Auto) 0.9 L (1.2-4.9) X10*3/uL [place] # (Auto) 0.7 (0.1-1.2) X10*3/uL Eos # (Auto) 0.1 (0.0-0.4) X10*3/uL Baso # (Auto) 0.0 (0.0-0.2) X10*3/uL Abs Immat Gran (auto) 0.01 (0.00-0.03) X10*3/uL Absolute Neuts (auto) 4.5 (2.0-8.3) x10*3/uL Absolute Nucleated RBC 0.000 (0.0-0.012) X10*3/uL Nucleated RBC % (auto) 0.0 (0.0-0.2) /100WBC Sodium 137 (135-145) mmol/L Potassium 4.0 (3.3-5.1) mmol/L Chloride 106 (96-108) mmol/L Carbon Dioxide 23 (22-29) mmol/L Anion Gap 12 (12-20) BUN 14 (9-16) mg/dL Creatinine 0.78 (0.5-1.4) mg/dL Estim Creat Clear Calc 109.5 Estimated GFR > 60 Random Glucose 138 H (60-115) mg/dL Calcium 8.8 (8.4-10.2) mg/dL Total Bilirubin 0.6 (0.0-1.0) mg/dL Direct Bilirubin 0.2 (0.0-0.5) mg/dL AST 14 (5-37) U/L ALT 24 (0-40) U/L Alkaline Phosphatase 86 (39-117) U/L Total Protein 7.0 (6.5-8.0) g/dL Albumin 3.9 (3.5-5.0) g/dL Lipase 27 (8-78) U/L Urine Color Urine Appearance Urine pH (5.0-9.0) Ur Specific [place] (1.005-1.025) Urine Protein (Neg-Trace) mg/dL Urine Glucose (UA) (Negative) mg/dL Urine Ketones (Negative) mg/dL Urine Blood (Negative) Urine Nitrite (Negative) Ur Leukocyte Esterase (Negative) Urine RBC (0-2) /HPF Urine WBC (0-5) /HPF Ur Squamous Epith Cells (0-2) /HPF Urine Bacteria (None Seen) Hyaline Casts (0-2) /LPF COVID-19 (IKE) Negative (Negative) COVID-19 Clin Com See Note 02/24/23 Range/Units 15:18 WBC (4.8-10.8) X10*3/uL RBC (4.60-5.80) X10*6/uL Hgb (14.0-18.0) g/dl Hct (42.0-52.0) % MCV (80.0-98.0) fL MCH (27.0-33.0) pg MCHC (31.0-36.0) g/dl RDW (11.0-16.0) % Plt Count (160-400) X10*3/uL MPV (9.4-12.4) fL Immature Gran % (Auto) (0.0-0.4) % Neut % (Auto) (45-73) % Lymph % (Auto) (20-40) % [place] % (Auto) (2-11) % Eos % (Auto) (0-4) % Baso % (Auto) (0-2) % Lymph # (Auto) (1.2-4.9) X10*3/uL [place] # (Auto) (0.1-1.2) X10*3/uL Eos # (Auto) (0.0-0.4) X10*3/uL Baso # (Auto) (0.0-0.2) X10*3/uL Abs Immat Gran (auto) (0.00-0.03) X10*3/uL Absolute Neuts (auto) (2.0-8.3) x10*3/uL Absolute Nucleated RBC (0.0-0.012) X10*3/uL Nucleated RBC % (auto) (0.0-0.2) /100WBC Sodium (135-145) mmol/L Potassium (3.3-5.1) mmol/L Chloride (96-108) mmol/L Carbon Dioxide (22-29) mmol/L Anion Gap (12-20) BUN (9-16) mg/dL Creatinine (0.5-1.4) mg/dL Estim Creat Clear Calc Estimated GFR Random Glucose (60-115) mg/dL Calcium (8.4-10.2) mg/dL Total Bilirubin (0.0-1.0) mg/dL Direct Bilirubin (0.0-0.5) mg/dL AST (5-37) U/L ALT (0-40) U/L Alkaline Phosphatase (39-117) U/L Total Protein (6.5-8.0) g/dL Albumin (3.5-5.0) g/dL Lipase (8-78) U/L Urine Color Yellow Urine Appearance Clear Urine pH 5.0 (5.0-9.0) Ur Specific [place] >= 1.030 H (1.005-1.025) Urine Protein Negative (Neg-Trace) mg/dL Urine Glucose (UA) >=1000 H (Negative) mg/dL Urine Ketones Negative (Negative) mg/dL Urine Blood Negative (Negative) Urine Nitrite Negative (Negative) Ur Leukocyte Esterase Negative (Negative) Urine RBC 0-2 (0-2) /HPF Urine WBC 0-5 (0-5) /HPF Ur Squamous Epith Cells 0-2 (0-2) /HPF Urine Bacteria None Seen (None Seen) Hyaline Casts 0-2 (0-2) /LPF COVID-19 (IKE) (Negative) COVID-19 Clin Com Independent Interpretation I performed an independent interpretation of an: CT Scan (Fluid-filled small bowel loops without obvious obstruction) Radiology Impression Discussion of test interpretation with radiology: I have reviewed the r adiologist's reading. (No definitive cause of the patient's abdominal pain) Medications Administered Discontinued Medications Generic Name Dose Route Start Last Admin Trade Name Freq PRN Reason Stop Dose Admin Sodium Chloride 1,000 mls @ 999 mls/hr 02/24/23 16:45 02/24/23 17:01 Ns IV 02/24/23 17:45 999 mls/hr .Q1H1M ANGELES Administration Iohexol 85 ml 02/24/23 17:30 02/24/23 17:30 Iohexol 350 Mg/Ml 100 Ml Infus..Btl IV 02/24/23 17:31 85 ml ONCE ONE Administration Ketorolac Tromethamine 30 mg 02/24/23 16:36 02/24/23 17:01 Ketorolac Tromethamine 30 Mg/Ml Vial IVPUSH 02/24/23 16:37 30 mg ONCE ONE Administration Ondansetron HCl 4 mg 02/24/23 16:36 02/24/23 17:01 Ondansetron Hcl 4 Mg/2 Ml Vial IVPUSH 02/24/23 16:37 4 mg ONCE ONE Administration Discharge Plan Discharge Clinical Impression: Gastroenteritis Patient Disposition: Home, Self-Care Instructions: Gastroenteritis (ED) Additional Instructions: Your workup in the emergency department today was reassuring. Drink lots of fluids, small sips at a time Your symptoms are likely related to a stomach virus Use Zofran as needed for nausea and vomiting Prescriptions: New ondansetron 4 mg tablet,disintegrating 4 mg PO Q8H PRN (Reason: nausea and vomiting) Qty: 20 0RF No Action lidocaine [Aspercreme (lidocaine)] 4 % adhesive patch,medicated 1 patch topical DAILY PRN (Reason: pain) Qty: 10 0RF hydroxyzine HCl 50 mg tablet 50 mg PO BEDTIME 30 Days Qty: 30 4RF fluticasone propionate 50 mcg/actuation spray,suspension 1 spray intranasal DAILY Qty: 16 3RF metformin 500 mg tablet extended release 24 hr 1,000 mg PO BID Qty: 360 4RF lisinopril 10 mg tablet 10 mg PO DAILY 90 Days Qty: 90 2RF (DME) FreeStyle Lite Strips Strip See Rx Instructions .Route Qty: 100 11RF Rx Instructions: BID - TID Trulicity 0.75 mg/0.5 mL pen injector 0.75 mg subcut QWEEK Qty: 2 3RF atorvastatin 40 mg tablet 40 mg PO DAILY 90 Days Qty: 90 2RF meloxicam 15 mg tablet 15 mg PO DAILY PRN (Reason: for pain) Qty: 30 0RF tadalafil 10 mg tablet 10 mg PO .As needed PRN (Reason: sexual activity) 90 Days Qty: 90 1RF Rx Instructions: 60 minutes before activity ipratropium bromide 0.03 % spray,non-aerosol 2 spray intranasal BID Jardiance 25 mg tablet 25 mg PO QAM Qty: 90 2RF (DME) blood-glucose meter [FreeStyle [place] Lite] Kit See Rx Instructions .Route Qty: 1 0RF Rx Instructions: As directed montelukast 10 mg tablet 10 mg PO DAILY 90 Days Qty: 90 1RF pantoprazole 40 mg tablet,delayed release (DR/EC) 40 mg PO DAILY 90 Days Qty: 90 1RF aspirin 81 mg tablet,chewable 1 tab PO DAILY repaglinide 0.5 mg tablet See Rx Instructions PO TID Qty: 150 3RF Rx Instructions: 1-2 tabs PO 3 times a day; administer within 15 minutes of a meal or snack Citrucel 500 mg tablet 500 mg PO TID Qty: 90 5RF gabapentin 300 mg capsule 300 mg PO BEDTIME 30 Days Qty: 30 0RF methocarbamol 750 mg tablet 750 mg PO TID PRN (Reason: muscle spasm) 30 Days Qty: 90 0RF
[2023-02-24 14:22] LABS: MANUAL DIFF FLAG NO
[2023-02-24 14:23] LABS: Basophils Percent Auto 0.3 % (0-2); Eosinophils Absolute Auto 0.1 X10*3/uL (0.0-0.4); Eosinophils Percent Auto 1.4 % (0-4); Hematocrit 44.5 % (42.0-52.0); Hemoglobin 15.6 g/dl (14.0-18.0); Imm Gran Abs Auto 0.01 X10*3/uL (0.00-0.03); Imm Gran Pct Auto 0.2 % (0.0-0.4); Lymphocytes Absolute Auto 0.9 X10*3/uL (1.2-4.9); Lymphocytes Percent Auto 14.2 % (20-40); Mean Corpuscular HGB Conc 35.1 g/dl (31.0-36.0); Mean Corpuscular Hemoglobin 30.1 pg (27.0-33.0); Mean Corpuscular Volume 85.9 fL (80.0-98.0); Mean Platelet Volume 9.7 fL (9.4-12.4); Monocytes Absolute Auto 0.7 X10*3/uL (0.1-1.2); Monocytes Percent Auto 10.8 % (2-11); Neutrophils Absolute Auto 4.5 x10*3/uL (2.0-8.3); Neutrophils Percent Auto 73.1 % (45-73); Platelet Count 179 X10*3/uL (160-400); Red Blood Count 5.18 X10*6/uL (4.60-5.80); Red Cell Distribution Width 12.8 % (11.0-16.0); White Blood Count 6.2 X10*3/uL (4.8-10.8)
[2023-02-24 14:34] LABS: COVID-19 Test Negative (Negative); IDNOW Serial# 08D9AD1C
[2023-02-24 14:42] LABS: Alanine Aminotransferase 24 U/L (0-40); Albumin Level 3.9 g/dL (3.5-5.0); Alkaline Phosphatase 86 U/L (39-117); Anion Gap 12 (12-20); Aspartate Amino Transferase 14 U/L (5-37); Bilirubin Direct 0.2 mg/dL (0.0-0.5); Bilirubin Total 0.6 mg/dL (0.0-1.0); Blood Urea Nitrogen 14 mg/dL (9-16); Calcium 8.8 mg/dL (8.4-10.2); Carbon Dioxide 23 mmol/L (22-29); Chloride 106 mmol/L (96-108); Creatinine Clr Calc Pharmacy 109.5; Estimated Glomerular Filt Rate > 60; Glucose Random 138 mg/dL (60-115); Lipase 27 U/L (8-78); Sodium 137 mmol/L (135-145)
[2023-02-24 15:29] LABS: Appearance Urine Clear; Color Urine Yellow; Glucose Urine UA >=1000 mg/dL (Negative); Leukocyte Esterase Urine Negative (Negative); Nitrite Urine Negative (Negative); Specific Gravity - Urine >= 1.030 (1.005-1.025); UMIC TRIGGER UACC YES; Urine Blood Negative (Negative); Urine Ketones Negative (Negative); Urine Protein Negative (Neg-Trace)
[2023-02-24 15:34] LABS: Bacteria Urine None Seen (None Seen); Hyaline Casts Urine 0-2 /LPF (0-2); RBC Urine 0-2 /HPF (0-2); Squamous Epithelial Cell Urine 0-2 /HPF (0-2); WBC Urine 0-5 /HPF (0-5)
[2023-02-24] MEDS: ondansetron HCL 4 MG/2 ML VIAL IVPUSH (17:01)
[2023-02-24] MEDS: 0.9 % Sodium Chloride 1,000 ML 999 ML IV (17:01)
[2023-02-24] MEDS: Ketorolac Tromethamine 30 MG/ML VIAL IVPUSH (17:01)
[2023-02-24] MEDS: iohexoL 350 MG/ML 100 ML INFUS..BTL 85 ML IV (17:30)
== END 2023-02-24 18:45 | disposition home or self-care (01) ==
PROVIDERS: Nurse Practitioner Family; Emergency Provider Internal Medicine; PCP Physician Assistant
DX: K52.9 Noninfective gastroenteritis and colitis, unspecified (principal); R11.2 Nausea with vomiting, unspecified; R10.30 Lower abdominal pain, unspecified; Z20.822 Contact with and (suspected) exposure to COVID-19; Z20.828 Contact with and (suspected) exposure to other viral communicable diseases; Z79.899 Other long term (current) drug therapy
CPT/HCPCS: 74177; 80048; 80076; 81001; 83690; 85025; 87635; 96361; 96374; 96375; 99284; J1885; J2405; Q9967

== ENCOUNTER 2023-03-11 08:43 | Day surgery (SDC) | payer OTHER, SELFPAY ==
[2023-03-11 06:06] VITALS: BMI 26.4
[2023-03-11 08:59] VITALS: BP 114/70; PULSE 73; RESP 20; TEMP 36.6; O2SAT 98
--- NOTE | 2023-03-11 09:55 | MHC.SHP ---
Pre-Procedural Eval Section A Date of Service: 03/11/23 The patient is an INPATIENT: No Changes since office visit: No Cold of Flu in the past 2 weeks, No New Medical Problems, No Changes in Medication and No Patient answered all questions The History & Physical has been completed within 30 days and I have reviewed it.: Yes Section B Chief Complaint: Superficial foreign body of right hand, initial en Allergies: Allergies Allergy/AdvReac Type Severity Reaction Status Date / Time No Known Allergies Allergy Verified 01/30/23 14:37 [No Known Allergies*] Plan I have reviewed the history and physical and performed a pertinent physical examination on my patient. No changes have occurred unless specified. Time Spent With Patient Time: Total time managing care of this patient today ____ minutes.
--- NOTE | 2023-03-11 09:55 | W.PM.OPN ---
Operative Note Operative Note Date of Service: 03/11/23 Narrative: Operative Note Preop diagnosis: 1. Right hand foreign body dorsal to 2nd MCP joint Postop diagnosis: same Procedure: 1. Right hand foreign body removal Surgeon: Tata Mariscal MD Anesthesia: digital block using 1% lidocaine with epinephrine Findings: 3 mm diameter dark purplish mass, possible foreign body within EBL: Less than 5 mL Tourniquet time: None Specimens: Right hand mass sent to histopathology Complications: None Disposition: Brought to recovery room in stable condition Plan: Follow-up for 7-10 days for wound check and suture removal and to check pathology Indications: The patient is 52 years old, with right hand foreign body, believed by patient to be a pencil lead . The risks and benefits of operative treatment including but not limited to risk of damage to blood vessels, nerves, tendons, infection, persistent pain, persistent symptoms, recurrence or possible need for additional surgery were discussed with the patient and the patient wishes to proceed with surgery. Procedure: Once consent was obtained a digital block was performed in the preop area using a combination of 1% lidocaine with epinephrine. The patient was then brought back to the operating suite and placed on the operative table in supine position. A tourniquet was applied to the proximal aspect of the right upper extremity and the limb was prepped and draped in a standard surgical fashion. Once assured that we had a good block, I made a 1.2 cm gently curved incision over the dorsal ulnar aspect of the 2nd MCP joint centered over the palpable foreign body. The incision was made through the skin the subcutaneous tissues using tenotomy scissors. We identified a small mass, dark purple/black in color measuring about 3 mm in diameter. Possible small vascular anomaly verses foreign body within. This was removed from the patient and sent for histopathology. 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 No other masses were found in the area. Once satisfied with foreign body/mass removal, the wound was copiously irrigated with normal saline and hemostasis was obtained with a brief period of local pressure. The skin edges were reapproximated with some 5.0 nylon suture material and a sterile dressing was applied. The patient appears to have tolerated the procedure well and with no complications. All digits were well vascularized at the conclusion of the case.
[2023-03-11 10:45] VITALS: BP 127/65; RESP 16
== END 2023-03-11 10:51 | disposition home or self-care (01) ==
PROVIDERS: PCP Physician Assistant; Visit Provider Orthopaedic Surgery
PROC: (CPT 10120; principal; 2023-03-11 09:50)
DX: S60.551A Superficial foreign body of right hand, initial encounter (principal); M79.5 Residual foreign body in soft tissue; M19.041 Primary osteoarthritis, right hand; M19.042 Primary osteoarthritis, left hand; E11.65 Type 2 diabetes mellitus with hyperglycemia; I10 Essential (primary) hypertension; E78.5 Hyperlipidemia, unspecified; E66.3 Overweight; F32.A Depression, unspecified; Z87.891 Personal history of nicotine dependence; Z98.890 Other specified postprocedural states
CPT/HCPCS: 10120; 88305; J0171

== ENCOUNTER → 2023-03-11 08:43 | Outpatient (BNV) | payer OTHER, SELFPAY | PROVIDERS: PCP Physician Assistant; Visit Provider Orthopaedic Surgery | DX: S60.551A Superficial foreign body of right hand, initial encounter (principal) | CPT/HCPCS: 10121 ==

== ENCOUNTER 2023-03-22 08:53 | Outpatient (AMB) | payer OTHER, SELFPAY ==
--- NOTE | 2023-03-22 08:55 | MHC.OFFVIS ---
Intake Vital Signs 03/22/23 08:57 Height 5 ft 10 in Weight 184 lb BMI 26.4 Intake Visit Reasons: PO RT 2nd MCP FOB removal 03/11/23AR Intake Note: Stevan is a 52 year old right hand dominant male who presents today for a post operative appointment s/p Right 2nd Metacarpal Foreign body removal 03/11/23. Patient reports that he is dong well and has no concerns today. Allergies No Known Allergies [No Known Allergies*] Allergy (Verified 03/22/23 08:57) HPI PO RT 2nd MCP FOB removal 03/11/23AR HPI Details The patient is a 52-year-old man who is status post removal of a mass/foreign body from the dorsal aspect of his right 2nd MCP joint with me on 03/11/2023. He is here today for his 1st postop visit and says he is doing well. However he complains about continued locking and catching of his left thumb. He is status post a left trigger thumb injection on 09/05/2022. PFSH Medical History Diverticulosis of colon Diabetes type 2, uncontrolled Overweight Smoking Chronic sinusitis Hyperlipidemia LDL goal <100 Essential hypertension Controlled diabetes mellitus without complication, without long-term current use of insulin Anxiety Depression HTN (hypertension) Diabetes Surgical History Hx of colonoscopy History of nasal surgery Hx of rhinoplasty Hx of foot surgery History of cataract surgery History of appendectomy H/O elbow surgery History of repair of rotator cuff Family History Mother Diabetes Hypertension Father Medical history unknown Social History Household Members: None Housing: House Alcohol intake: never Patient Tobacco Use Status: Former Tobacco user Quit Date: 2018 Tobacco use type: Cigarette Years Smoked: 1 1/2 year ago e-Cigarette/Vaping Use: Never Used Second Hand Smoke Exposure: No service: No 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al status: unemployed 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 His wound is healing well with no erythema drainage or evidence of infection. Sutures removed and Steri-Strips applied. He can make a fist and extend all of his digits without difficulty. With regards to the left thumb he still has some visible catching of the left thumb with tenderness over the A1 denise. Pathology from 03/11/2023: Diagnosis Soft tissue, right hand, excision: Dense fibrovascular tissue with prominent black pigmented foreign material; negative for malignancy. Assessment & Plan Assessment & Plan (1) Foreign body of right hand: Code(s): S60.551A - Superficial foreign body of right hand, initial encounter (2) Trigger thumb, left thumb: Code(s): M65.312 - Trigger thumb, left thumb Plan Assessment and plan: 1. Right hand foreign body/soft tissue mass excision Of surgery 03/11/2023 He appears to be doing well postoperatively. I educated him about the postoperative course and about wound care. He can follow up p.r.n. for this issue. 2. Left trigger thumb. Status post steroid injection with me on 09/05/2022 This has continued to be a problem for him. We discussed operative and non operative treatment options he wishes to proceed with surgery. The risks and benefits of operative treatment were discussed with the patient and the patient wishes to proceed with surgery. These risks include, but are not limited to risk of damage to blood vessels, nerves, tendons, infection, recurrence, incomplete relief of preoperative symptoms, persistent pain, possible need for further surgery and the risks associated with regional blocks and anesthesia. The plan is to take the patient to the operating room sometime in the next few weeks for the following procedures: 1. Left trigger thumb release under local 2. [ ] All of the preoperative paperwork including the consent was filled out today. All the patient's questions were answered. The patient understands that they will be contacted by our senior industrial engineer soon to schedule this procedure He does have diabetes. His last hemoglobin A1c was 7.3 on 11/09/2022 and he says it is well controlled. Coding Level of Care Code Est Pt Level 4 (56585) Diagnoses Foreign body of right hand S60.551A Trigger thumb, left thumb M65.312
[2023-03-22 08:57] VITALS: BMI 26.4
== END 2023-03-22 11:22 | disposition home or self-care (01) ==
PROVIDERS: PCP Physician Assistant; Visit Provider Orthopaedic Surgery
DX: S60.551A Superficial foreign body of right hand, initial encounter (principal); M65.312 Trigger thumb, left thumb
CPT/HCPCS: 99214

== ENCOUNTER → 2023-03-22 08:53 | Outpatient (BNVA) | payer OTHER, SELFPAY | PROVIDERS: PCP Physician Assistant; Visit Provider Orthopaedic Surgery | DX: S60.551D Superficial foreign body of right hand, subsequent encounter (principal); M65.312 Trigger thumb, left thumb | CPT/HCPCS: 99212 ==

== ENCOUNTER 2023-04-02 07:56 | Outpatient (AMB) | payer OTHER, SELFPAY ==
--- NOTE | 2023-04-02 08:00 | MHC.PC.OV ---
Vital Signs 04/02/23 08:01 Height 5 ft 10 in Weight 187 lb BMI 26.8 BP 120/70 Blood Pressure Location Lt brachial Position Sitting Pulse 68 Pulse Source Pulse Oximeter Pulse Oximetry (%) 96 Oxygen Delivery Method Room Air Intake Visit Reasons: Annual Exam Intake Note: Patient here for a physical exam Clinical Support Tech Required: No Accompanied by: Self / Same As Patient Allergies No Known Allergies [No Known Allergies*] Allergy (Verified 04/02/23 08:11) Medication List - Last Reconciled 04/02/23 by Juni Ro PA-C aspirin 1 tab PO DAILY atorvastatin 40 mg PO DAILY 90 days blood sugar diagnostic (FreeStyle Lite Strips) BID - TID blood-glucose meter (FreeStyle [place] Lite kit) As directed dulaglutide (Trulicity) 0.75 mg (0.5 mL) subcut QWEEK empagliflozin (Jardiance) 25 mg PO QAM fluticasone propionate 50 mcg/actuation 1 spray intranasal DAILY gabapentin 300 mg PO BEDTIME 30 days hydroxyzine HCl 50 mg PO BEDTIME 30 days ipratropium bromide 2 sprays intranasal BID lidocaine 4% (Aspercreme (lidocaine)) 1 patch topical DAILY PRN lisinopril 10 mg PO DAILY 90 days meloxicam 15 mg PO DAILY PRN metformin ER 1,000 mg (2 x 500 mg) PO BID methocarbamol 750 mg PO TID PRN 30 days methylcellulose (laxative) (Citrucel) 500 mg PO TID montelukast 10 mg PO DAILY 90 days pantoprazole 40 mg PO DAILY 90 days repaglinide 1-2 tabs PO 3 times a day; administer within 15 minutes of a meal or snack tadalafil 10 mg PO .As needed PRN 90 days Tobacco use date assessed: 11/15/22 Dental Screening Dental Screen Date: 04/02/23 Did you have a dental visit in the last 12 months?: Yes Did you have a dental problem in the last 6 months where you did not have access to dental care?: No Was dental information given to patient?: Patient has dentist HPI Annual Exam HPI Details Patient is a 52 year-old male here today for a routine annual physical. ? significant for HTN, DMII, HLD, ED, VALLES, ? Chronic lumbar spine pain,chronic left foot navicular fx. ? .. Concerns--> reports continues to have lower back pain , worse with long periods of sitting and standing. Has seen [facility] in the past and was given gabapentin which was not effective in reducing his pain. 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 He would like to reestablish care with pain management and perhaps get injections to help him with his back pain. .. ? HTN: ? He reports blood pressures when taken at home have been stable. ? patient denies any shortness of breath, chest discomfort or headaches. Continues on? Lisinopril 10 mg. ? .. ? DMII:? Reports he has been tring to follow a DM diet. Seeing DM Educator. .? Followed by? Endocrinology and continues on metformin, Jardiance and Trulicity.? Today's A1c 9.5 he does report some dietary indiscretion and being little more sedentary due to his arthritic pain. Reports his blood sugars have been 130-200 ? former smoker:? Continues to abstain from smoking Colon cancer screening: Colonoscopy done in June 2022, normal repeat 10 years Vaccines: Up-to-date with shingles, tetanus, pneumonia and COVID vaccines PFSH Medical History Diverticulosis of colon Diabetes type 2, uncontrolled Overweight Smoking Chronic sinusitis Hyperlipidemia LDL goal <100 Essential hypertension Controlled diabetes mellitus without complication, without long-term current use of insulin Anxiety Depression HTN (hypertension) Diabetes Surgical History Hx of colonoscopy History of nasal surgery Hx of rhinoplasty Hx of foot surgery History of cataract surgery History of appendectomy H/O elbow surgery History of repair of rotator cuff Family History Mother Diabetes Hypertension Father Medical history unknown Social History (Updated 04/02/23 @ 08:17 by Juni Ro PA-C) Household Members: None Housing: House Alcohol intake: never Patient Tobacco Use Status: Former Tobacco user Quit Date: 2018 Tobacco use type: Cigarette Years Smoked: 1 1/2 year ago e-Cigarette/Vaping Use: Never Used Second Hand Smoke Exposure: No service: No 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al status: unemployed and disabled 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 Rasheed Pena, Fanta Dutton, Garcia Parham and colleagues, with an educational jerrod from [employer]. Review of Systems Const Denies body aches, Denies chills, Denies excessive sweating, Denies fatigue, Denies fever(s) and Denies headache(s) Eyes Denies blurry vision ENT Denies dysphagia, Denies vertigo, Denies dizziness, Denies headache(s), Denies hearing loss and Denies tinnitus Card Denies chest pain, Denies chest pain with activity, Denies syncope, Denies irregular heart rhythm and Denies dyspnea Resp Denies chest congestion, Denies cough, Denies hemoptysis, Denies dyspnea and Denies wheezing GI Denies abdominal pain, Denies melena, Denies hematochezia, Denies coffee ground emesis, Denies dysphagia, Denies diarrhea, Denies nausea and Denies vomiting Denies difficulty urinating, Denies dysuria, Denies urinary frequency, Denies urinary hesitancy and Denies urinary urgency Musc Denies arthralgias, Denies limited range of motion, Denies muscle cramps and Denies muscle weakness Skin/Breast Denies rash and Denies skin ulcer Neuro Denies Abnormal speech present, Denies confusion, Denies vertigo, Denies dizziness, Denies syncope, Denies headache(s), Denies memory loss and Denies seizure-like activity Psych Denies anxiety, Denies confusion, Denies depression, Denies memory loss, Denies panic attacks and Denies paranoia Endo Denies excessive sweating, Denies fatigue, Denies flushing, Denies polydipsia and Denies polyuria Aller/Immun Denies wheezing Physical exam (Primary Care) Vital Signs: Last Vital Signs Pulse 68 04/02/23 08:01 BP 120/70 04/02/23 08:01 Pulse Ox 96 04/02/23 08:01 Oxygen Delivery Method Room Air 04/02/23 08:01 BMI result Body Mass Index 26.8 Tobacco/Smoking Status: Tobacco use Status Tobacco use date assessed 11/15/22 04/02/23 08:05 Patient Tobacco Use Status Former Tobacco user 04/02/23 08:17 Tobacco use type Cigarette 04/02/23 08:17 e-Cigarette/Vaping Use Never Used 04/02/23 08:17 Thrive Assessment: Date of Thrive Assessment Date Thrive assessed 11/15/22 04/02/23 08:05 Const General: cooperative, comfortable, no acute distress, alert and awake; No confusion Orientation/consciousness: oriented to person, oriented to place, patient oriented x3 and No confusion HENMT Head: Yes normocephalic Ears: external ears normal and TM's normal bilaterally Face and sinus: No sinus tenderness Mouth: Normal oral and palatal mucosa present and tongue normal Teeth and gingiva: dentition normal and gingiva normal Throat: Yes posterior oropharynx normal, Yes tonsils normal and Yes uvula midline Eyes Conjunctivae: conjunctivae normal Sclerae: sclerae normal Pupils: Equal, round and reactive pupils present EOM: EOMs intact bilaterally Direct Ophthalmoscopy: No no photophobia Neck Neck: Yes no lymphadenopathy, No tender and Yes no JVD Thyroid: Thyroid normal Carotids: no bruits Chest Chest palpation & inspection: no tenderness Resp Effort & Inspection: normal respiratory effort, no audible wheezes, not labored and no stridor Auscultation: no crackles, no rales, no rhonchi and no wheezes Cardio Jugular venous distension: no JVD Rate: regular rate, not bradycardic and not tachycardic Rhythm: regular rhythm Bruits: no carotid bruits Peripheral pulses: Peripheral pulses 2+ throughout GI Inspection: Yes normal to inspection, No abdominal wall ecchymosis and No visible herniation Palpation (GI): Soft to palpation, nontender, no guarding, not rigid and No hepatosplenomegaly present Auscultation: normoactive bowel sounds General: Yes no CVA tenderness Back/Spine/Pelvis Back: no CVA tenderness and No back tenderness Cervical Spine: cervical ROM normal Thoracic/Lumbar Spine: thoracic and lumbar spine normal to inspection, straight leg raise negative bilaterally, No thoraco-lumbar ROM limited and No lumbar spinal tenderness Skin Lesions: no lesions Rashes: no rashes Wounds: no wounds Neuro General: oriented to person, oriented to place, patient oriented x3, CN's II-XI intact bilaterally and No confusion Cranial nerves: Yes Equal, round and reactive pupils present and Yes Normal accommodation reflex present Cognition (Neuro): normal cognition Speech: No Abnormal speech present Gait exam (Neuro): Normal gait present Motor exam (neuro): 5/5 motor strength present throughout Extrem Right upper extremity: full ROM; no cyanosis Left upper extremity: full ROM; no cyanosis Right lower extremity: no edema Left lower extremity: no edema Psych Appearance: grossly normal Mental Status: mental status grossly normal Affect: normal affect Attitude: cooperative Thought process: Normal thought process present Office Procedures Flu Questionnaire Does the patient have a severe egg allergy?: No Results AMB Hemoglobin A1c AMB Hemoglobin A1c 9.5 % Last Edit by LIZ Early on 04/02/23 08:17 Immunizations flu vacc [id number] 6mos up(PF) 60 mcg(15 mcgx4)/0.5 mL IM syringe Performing Provider: Juni Ro PA-C [facility] Documented (not given) by: LIZ Early on 04/02/23 08:10 Reason Not Given: Patient Refused Results Reviewed Results Reviewed: Laboratory Last Values Hgb A1c (Clinic) 9.5 % (4.0-6.0) H 04/02/23 08:06 Assessment and Plan Assessment & Plan (1) Annual physical exam: Code(s): Z00.00 - Encounter for general adult medical examination without abnormal findings (2) Hand arthritis: Code(s): M19.049 - Primary osteoarthritis, unspecified hand Plan: Patient recent x-ray showing bilateral mild arthritis. Followed by Rheumatology and a bio basis. Has been referred to occupational therapy for hand therapy. Takes meloxicam on a p.r.n. basis (3) Diabetes type 2, uncontrolled: Code(s): E11.65 - Type 2 diabetes mellitus with hyperglycemia Qualifiers: Glycemic state: with hyperglycemia Qualified Code(s): E11.65 - Type 2 diabetes mellitus with hyperglycemia Plan: Patient's type 2 diabetes suboptimally controlled today's A1c at 9.5 from 8.2. He does report some dietary indiscretion. He does often forget to take his diabetic medication. He will try to be more consistent with taking his diabetic medication. Was unable to tolerate higher doses of Trulicity. Continues on Jardiance and metformin at the highest doses. He will work extensively on lifestyle modifications to reduce his carbohydrates in his diet. Goal A1c is to be below 7.0 (4) Essential hypertension: Code(s): I10 - Essential (primary) hypertension Plan: Patient's blood pressure acceptable today in office. Will continue current dose of antihypertensive medication with goal blood pressure be below 140/90 (5) Hyperlipidemia LDL goal <100: Code(s): E78.5 - Hyperlipidemia, unspecified Plan: Patient's cholesterol has been stable with current statin potency. Goal LDL to be below 100 (6) Degenerative disc disease at L5-S1 level: Code(s): M51.37 - Other intervertebral disc degeneration, lumbosacral region Plan: Was followed by [facility]. He was interested in getting lumbar spine injections. He reports continues to have lower lumbar spine pain. Denies any recent trauma to his lower back. Will increase his gabapentin to 300 t.i.d.. Advised on another round of physical therapy though patient declines. Orders: Orders Influenza [id number] Immunization Today Z23 - Encounter for immunization AMB Hemoglobin A1c Today E11.65 - Type 2 diabetes mellitus with hyperglycemia Referrals Pain Management Referral M47.816 - Spondylosis without myelopathy or radiculopathy, lumbar region Medications: New gabapentin 300 mg PO BID 30 days 60 caps 3RF M47.816 - Spondylosis without myelopathy or radiculopathy, lumbar region Discontinued gabapentin Discontinued Reason: Doctor's Order 300 mg PO BEDTIME 30 days 30 caps 0RF pain M51.37 - Other intervertebral disc degeneration, lumbosacral region, M54.16 - Radiculopathy, lumbar region Coding Level of Care Code Est Pt Prev Care 40-64y(24229) Diagnoses Annual physical exam Z00.00 Hand arthritis M19.049 Uncontrolled type 2 diabetes mellitus with hyperglycemia E11.65 Glycemic state: with hyperglycemia Essential hypertension I10 Hyperlipidemia LDL goal <100 E78.5 Degenerative disc disease at L5-S1 level M51.37
[2023-04-02 08:01] VITALS: BP 120/70; PULSE 68; O2SAT 96; BMI 26.8
== END 2023-04-02 08:37 | disposition home or self-care (01) ==
PROVIDERS: PCP Physician Assistant; Visit Provider Physician Assistant
DX: Z00.00 Encounter for general adult medical examination without abnormal findings (principal); M19.049 Primary osteoarthritis, unspecified hand; E11.65 Type 2 diabetes mellitus with hyperglycemia; I10 Essential (primary) hypertension; E78.5 Hyperlipidemia, unspecified; M51.37 Other intervertebral disc degeneration, lumbosacral region
CPT/HCPCS: 83036; 99396

== ENCOUNTER 2023-04-15 09:09 | Outpatient (AMB) | payer OTHER, SELFPAY ==
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
[2023-04-15 09:23] VITALS: BP 162/92; PULSE 71; O2SAT 96; BMI 27.4
== END 2023-04-15 09:33 | disposition home or self-care (01) ==
PROVIDERS: PCP Physician Assistant; Visit Provider Nurse Practitioner Family
DX: E11.65 Type 2 diabetes mellitus with hyperglycemia (principal); M51.37 Other intervertebral disc degeneration, lumbosacral region; M47.816 Spondylosis without myelopathy or radiculopathy, lumbar region; M53.3 Sacrococcygeal disorders, not elsewhere classified; M62.830 Muscle spasm of back; M19.049 Primary osteoarthritis, unspecified hand
CPT/HCPCS: 99214

== ENCOUNTER → 2023-04-15 09:09 | Outpatient (BNVA) | payer OTHER, SELFPAY | PROVIDERS: PCP Physician Assistant; Visit Provider Nurse Practitioner Family | DX: M51.37 Other intervertebral disc degeneration, lumbosacral region (principal); M47.816 Spondylosis without myelopathy or radiculopathy, lumbar region; M53.3 Sacrococcygeal disorders, not elsewhere classified; M62.830 Muscle spasm of back; M19.049 Primary osteoarthritis, unspecified hand; E11.65 Type 2 diabetes mellitus with hyperglycemia | CPT/HCPCS: 99212 ==

== ENCOUNTER 2023-05-01 07:59 | Outpatient (AMB) | payer OTHER, SELFPAY ==
--- NOTE | 2023-05-01 08:43 | A.OFFVIS_ITS ---
Intake VS Expanded 05/01/23 08:50 Height 5 ft 10 in Weight 188 lb 4.396 oz BMI 27.0 Intake Visit Reasons: T2DM with hyperglycemia Allergies No Known Allergies [No Known Allergies*] Allergy (Verified 04/15/23 09:23) HPI Nutrition Presentation Details Pt presents for MNT for T2DM Pt did not bring bg record , Pt reports monitoring fasting bg: ranging from 130-170 mg/dl monitoring BG after meals 1-2 x/wk: bg in 200s Physical activity: Keeping sedentary related to body pain Including fruits: no Dairy: glass milk 2% with each meal and in coffee nnon starchy Vegetables: not including fish : 0-1 a week Eating out: 2-3 x/wk fried breaded items: 2-3 x/wk etoh/smoking: denies ( stop in 2019 ) multivitamin : not taking OOY-Masdqlq-Ce.Jeor Equation Height 5 ft 10 in Weight 188 lb Resting Metabolic Rate 1707.39 Calculated Activity Level Sedentary Calories Needed to Maintain Weight 2048.87 Most Recent Diabetes Results: Creatinine 0.78 mg/dL (0.5-1.4) 02/24/23 Blood Urea Nitrogen 14 mg/dL (9-16) 02/24/23 Sodium 137 mmol/L (135-145) 02/24/23 Potassium 4.0 mmol/L (3.3-5.1) 02/24/23 Chloride 106 mmol/L (96-108) 02/24/23 Carbon Dioxide 23 mmol/L (22-29) 02/24/23 Calcium 8.8 mg/dL (8.4-10.2) 02/24/23 AST 14 U/L (5-37) 02/24/23 ALT 24 U/L (0-40) 02/24/23 Total Protein 7.0 g/dL (6.5-8.0) 02/24/23 Albumin 3.9 g/dL (3.5-5.0) 02/24/23 FORMERLY [facility] Medical History Diverticulosis of colon Diabetes type 2, uncontrolled Overweight Smoking Chronic sinusitis Hyperlipidemia LDL goal <100 Essential hypertension Controlled diabetes mellitus without complication, without long-term current use of insulin Anxiety Depression HTN (hypertension) Diabetes Surgical History Hx of colonoscopy History of nasal surgery Hx of rhinoplasty Hx of foot surgery History of cataract surgery History of appendectomy H/O elbow surgery History of repair of rotator cuff Family History Mother Diabetes Hypertension Father Medical history unknown Social History Household Members: None Housing: House Alcohol intake: never Patient Tobacco Use Status: Former Tobacco user Quit Date: 2018 Tobacco use type: Cigarette Years Smoked: 1 1/2 year ago e-Cigarette/Vaping Use: Never Used Second Hand Smoke Exposure: No service: No 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al status: unemployed and disabled 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 Cognitive needs: No Hearing needs: No Vision needs: Yes Assessment & Plan Assessment & Plan (1) Diabetes type 2, uncontrolled: Code(s): E11.65 - Type 2 diabetes mellitus with hyperglycemia Qualifiers: Glycemic state: with hyperglycemia Qualified Code(s): E11.65 - Type 2 diabetes mellitus with hyperglycemia Plan: Resume meal planning and including vit C and fiber rich foods Resume monitoring BG and taking DM meds as prescribed by your doctor EST Kcal NEEDS as per [place] [facility] Jeor: 2000 USED BODY WT : 85 kg est protein needs as per 0.8-1.0 g/kg bw: 85 g/d est fluid needs as per 25 ml/kg bw: 2125 Sodium rec: < 2000 mg/dl Fiber rec: 8-10 g per day and increase to 28 - 35 g/d or as tolerated Educate patient on: (R= Reviewed, V = verbalizes understanding N/R= Needs review N/A= not applicable) * Food sources of carbohydrates and serving adequate serving sizes : R V * Difference between complex carbohydrates and simple carbohydrates, role of fiber: R V * Differences between fats (MUFA/PUFA/saturated fats, trans fats) and food sources of various fats: R V * Food sources of sodium and salt and healthy modifications for heart health and kidney health: R V * Vitamins and minerals: R V * How to interpret food labels: R V * Healthy Plate method concept: R V * Physical activity: benefits and precaution: R V Patient Instructions: Resume meal planning have 3 meals consisting of 60-90 g carbs following healthy plate method remove batter, choose a fruit in place of pastries twice/day Include non starchy vegetables at least 1/2 -1 c serving 3 times/wk and gradually work at including 1- 2 serving daily Watch on portion of desserts/ starches during celebrations Drink water with meals /snacks , choose low sugar/ decaffeinated beverages take a daily multivitamin Coding Level of Care Code Nutr Indiv Subseq ([id number]) Diagnoses Uncontrolled type 2 diabetes mellitus with hyperglycemia E11.65 Glycemic state: with hyperglycemia Time Spent (min) 30
[2023-05-01 08:50] VITALS: BMI 27.0
[2023-05-01 09:33] VITALS: BMI 27.0
== END 2023-05-01 09:18 | disposition home or self-care (01) ==
PROVIDERS: PCP Physician Assistant; Visit Provider Dietitian, Registered
DX: E11.65 Type 2 diabetes mellitus with hyperglycemia (principal)

== ENCOUNTER → 2023-05-01 07:59 | Outpatient (BNVA) | payer OTHER, SELFPAY | PROVIDERS: PCP Physician Assistant; Visit Provider Dietitian, Registered | DX: E11.65 Type 2 diabetes mellitus with hyperglycemia (principal) | CPT/HCPCS: 97803 ==

== ENCOUNTER 2023-05-07 06:22 | Outpatient (REF) | payer OTHER, SELFPAY ==
--- NOTE | ~2023-05-07 | FL_ITS ---
EXAMINATION: XR FLUOROSCOPY WITH IMAGES CLINICAL INFORMATION: Spondylosis without myelopathy or radiculopathy, lumbar region. COMPARISON: None available. TECHNIQUE: Fluoroscopy Supervised By: Dr. Frandy Buckner. Fluoroscopy Time: 0.6 minutes. Cumulative Dose: 8.56 mGy. DAP: 0.148 Gycm2. Images: 6. FINDINGS: Images demonstrate needle placement and contrast injection adjacent to the bilateral lateral L3, L4 and L5 vertebrae FL/FL guidance in treatment room IMPRESSION: Fluoroscopy guidance for pain management procedure.
== END 2023-05-07 06:23 | disposition home or self-care (01) ==
LOC: CF 06:22
PROVIDERS: PCP Physician Assistant; Visit Provider Anesthesiology
DX: M47.816 Spondylosis without myelopathy or radiculopathy, lumbar region (principal); M53.3 Sacrococcygeal disorders, not elsewhere classified; M62.830 Muscle spasm of back; M51.37 Other intervertebral disc degeneration, lumbosacral region; E11.65 Type 2 diabetes mellitus with hyperglycemia
CPT/HCPCS: 64493; 64494; J2795; Q9967

== ENCOUNTER 2023-05-07 07:17 | Outpatient (AMB) | payer OTHER, SELFPAY ==
[2023-05-07 07:34] VITALS: BP 120/64; PULSE 76; RESP 12; O2SAT 98; BMI 27.0
--- NOTE | 2023-05-07 07:34 | A.OFFVIS_ITS ---
Intake Vital Signs 05/07/23 07:34 05/07/23 08:37 Height 5 ft 10 in 5 ft 10 in Weight 188 lb 188 lb BMI 27.0 27.0 BP 120/64 130/84 Blood Pressure Location Rt brachial Rt brachial Position Sitting Sitting Respiration 12 14 Pulse 76 63 Pulse Source Pulse Oximeter Pulse Oximeter Pulse Oximetry (%) 98 98 Oxygen Delivery Method Room Air Room Air Comment Pre-op post-op Intake Visit Reasons: BILAT DX L3-L4-L5 MBB/LOCAL Allergies No Known Allergies [No Known Allergies*] Allergy (Verified 05/07/23 07:35) PFSH Medical History Diverticulosis of colon Diabetes type 2, uncontrolled Overweight Smoking Chronic sinusitis Hyperlipidemia LDL goal <100 Essential hypertension Controlled diabetes mellitus without complication, without long-term current use of insulin Anxiety Depression HTN (hypertension) Diabetes Surgical History Hx of colonoscopy History of nasal surgery Hx of rhinoplasty Hx of foot surgery History of cataract surgery History of appendectomy H/O elbow surgery History of repair of rotator cuff Family History Mother Diabetes Hypertension Father Medical history unknown Social History Household Members: None Housing: House Alcohol intake: never Patient Tobacco Use Status: Former Tobacco user Quit Date: 2018 Tobacco use type: Cigarette Years Smoked: 1 1/2 year ago e-Cigarette/Vaping Use: Never Used Second Hand Smoke Exposure: No service: No 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al status: unemployed and disabled 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 Cognitive needs: No Hearing needs: No Vision needs: Yes Physical Exam Vital Signs: Last Vital Signs Pulse 76 05/07/23 07:34 Resp 12 05/07/23 07:34 BP 120/64 05/07/23 07:34 Pulse Ox 98 05/07/23 07:34 Oxygen Delivery Method Room Air 05/07/23 07:34 BMI result Body Mass Index 27.0 Assessment & Plan Assessment & Plan (1) Diabetes type 2, uncontrolled: Code(s): E11.65 - Type 2 diabetes mellitus with hyperglycemia Qualifiers: Glycemic state: with hyperglycemia Qualified Code(s): E11.65 - Type 2 diabetes mellitus with hyperglycemia (2) Degenerative disc disease at L5-S1 level: Code(s): M51.37 - Other intervertebral disc degeneration, lumbosacral region (3) Lumbar spondylosis: Code(s): M47.816 - Spondylosis without myelopathy or radiculopathy, lumbar region Plan: Diagnostic medial branch block L3,L4 dorsal ramus L5 bilateral.? ? ?Informed consent was explained to the patient. All questions were explained and? answered.? The patient was taken inside the operating room where she was positioned prone on the operating table. Time-out was performed delineating correct site, side, the nature of the procedure, patient's allergy, . All operating room staff was participating in OR time-out procedure. ? ? The lower back was prepped with ChloraPrep and draped with sterile towels.? C- arm was brought over the operating field and sq picture of L4-, L5 vertebra and S1 AREA were delineated on the screen.? Point of interest were delineated as confluence of superior articular process of L4 and L5 vertebra bilaterally with corresponding transverse processes as well as confluence of the sacral alae bilaterally with superior articular process of S1.? The projection of the point of interest to the skin were injected with the small amount of local anesthetic lidocaine 2% 1-1.5 cc.? After that 22 gauge 3.5 inch spinal needle was driven sequentially to the points of interest in tunnel vision fashion. After needles gently contacted the bone at the point of interests the needle was injected with small amount of the contrast.? The injection of the contrast did not demonstrate any intravascular or intrathecal spread of the contrast.? After that injection of the? ropivacaine 0.5%-1cc was performed at each needle location.??after that the needles were removed and Bandaids were applied. ? Upon completion of the injections? needle was? removed and sterile Band-Aids were applied.? The patient tolerated procedure very well. (4) Sacroiliac joint pain: Code(s): M53.3 - Sacrococcygeal disorders, not elsewhere classified (5) Muscle spasm of back: Code(s): M62.830 - Muscle spasm of back (6) Hand arthritis: Code(s): M19.049 - Primary osteoarthritis, unspecified hand Plan: Diagnostic medial branch block L3,L4 dorsal ramus L5 bilateral.? ? ?Informed consent was explained to the patient. All questions were explained and? answered.? The patient was taken inside the operating room where she was p ositioned prone on the operating table. Time-out was performed delineating correct site, side, the nature of the procedure, patient's allergy, . All operating room staff was participating in OR time-out procedure. ? ? The lower back was prepped with ChloraPrep and draped with sterile towels.? C- arm was brought over the operating field and sq picture of L4-, L5 vertebra and S1 AREA were delineated on the screen.? Point of interest were delineated as confluence of superior articular process of L4 and L5 vertebra bilaterally with corresponding transverse processes as well as confluence of the sacral alae bilaterally with superior articular process of S1.? The projection of the point of interest to the skin were injected with the small amount of local anesthetic lidocaine 2% 1-1.5 cc.? After that 22 gauge 3.5 inch spinal needle was driven sequentially to the points of interest in tunnel vision fashion. After needles gently contacted the bone at the point of interests the needle was injected with small amount of the contrast.? The injection of the contrast did not demonstrate any intravascular or intrathecal spread of the contrast.? After that injection of the? ropivacaine 0.5%-1cc was performed at each needle location.??after that the needles were removed and Bandaids were applied. ? Upon completion of the injections? needle was? removed and sterile Band-Aids were applied.? The patient tolerated procedure very well. Plan 1. Endocrinoalogy referral for uncontrolled diabetes. A1C 9.5 on 04/02/23. 2. Scheduled for Bilateral diagnostic L3-L4-L5 medial branch blocks with local and fluoroscopy. Patient is aware his A1C has to better controlled for Sprint PNS trial. He is not candidate for therapeutic injections. We also reviewed RFA. Expectations, risks and benefits were reviewed. Patient is aware he will be contacted to schedule this procedure. All questions were answered and the patient is in agreement of plan. Follow-up after injections and sooner as needed. Orders: Orders FL guidance in treatment room Today M47.816 - Spondylosis without myelopathy or radiculopathy, lumbar region Coding Level of Care Code Procedure Only Diagnoses Uncontrolled type 2 diabetes mellitus with hyperglycemia E11.65 Glycemic state: with hyperglycemia Degenerative disc disease at L5-S1 level M51.37 Lumbar spondylosis M47.816 Sacroiliac joint pain M53.3 Muscle spasm of back M62.830 Hand arthritis M19.049
[2023-05-07 08:37] VITALS: BP 130/84; PULSE 63; RESP 14; O2SAT 98; BMI 27.0
== END 2023-05-07 08:47 | disposition home or self-care (01) ==
LOC: HO.PMCPRC 07:17
PROVIDERS: PCP Physician Assistant; Visit Provider Anesthesiology
DX: M47.816 Spondylosis without myelopathy or radiculopathy, lumbar region (principal)
CPT/HCPCS: 64493; 64494

== ENCOUNTER 2023-05-09 08:34 | Outpatient (AMB) | payer OTHER, SELFPAY ==
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
[2023-05-09 08:39] VITALS: BP 129/73; PULSE 72; O2SAT 98; BMI 26.6
== END 2023-05-09 08:48 | disposition home or self-care (01) ==
PROVIDERS: PCP Physician Assistant; Visit Provider Nurse Practitioner Family
DX: M51.37 Other intervertebral disc degeneration, lumbosacral region (principal); M47.816 Spondylosis without myelopathy or radiculopathy, lumbar region; E11.65 Type 2 diabetes mellitus with hyperglycemia
CPT/HCPCS: 99213

== ENCOUNTER → 2023-05-09 08:34 | Outpatient (BNVA) | payer OTHER, SELFPAY | PROVIDERS: PCP Physician Assistant; Visit Provider Nurse Practitioner Family | DX: M51.37 Other intervertebral disc degeneration, lumbosacral region (principal); M47.816 Spondylosis without myelopathy or radiculopathy, lumbar region; E11.65 Type 2 diabetes mellitus with hyperglycemia | CPT/HCPCS: 99212 ==

== ENCOUNTER 2023-07-03 07:50 | Outpatient (AMB) | payer OTHER, SELFPAY ==
--- NOTE | 2023-07-03 07:58 | MHC.PC.OV ---
Vital Signs 07/03/23 07:59 Height 5 ft 10 in Weight 185 lb BMI 26.5 BP 102/82 Blood Pressure Location Lt brachial Position Sitting Pulse 71 Pulse Source Pulse Oximeter Pulse Oximetry (%) 98 Oxygen Delivery Method Room Air Intake Visit Reasons: f/u DMII Allergies No Known Allergies [No Known Allergies*] Allergy (Verified 07/03/23 08:23) Medication List - Last Reconciled 07/03/23 by Juni Ro PA-C aspirin 1 tab PO DAILY atorvastatin 40 mg PO DAILY 90 days blood sugar diagnostic (FreeStyle Lite Strips) BID - TID blood-glucose meter (FreeStyle [place] Lite kit) As directed dulaglutide (Trulicity) 0.75 mg (0.5 mL) subcut QWEEK empagliflozin (Jardiance) 25 mg PO QAM fluticasone propionate 50 mcg/actuation 1 spray intranasal DAILY gabapentin 300 mg PO BID 30 days hydroxyzine HCl 50 mg PO BEDTIME 30 days ipratropium bromide 2 sprays intranasal BID lisinopril 10 mg PO DAILY 90 days meloxicam 15 mg PO DAILY PRN metformin ER 1,000 mg (2 x 500 mg) PO BID methocarbamol 750 mg PO TID PRN 30 days methylcellulose (laxative) (Citrucel) 500 mg PO TID montelukast 10 mg PO DAILY 90 days pantoprazole 40 mg PO DAILY 90 days repaglinide 1-2 tabs PO 3 times a day; administer within 15 minutes of a meal or snack tadalafil 10 mg PO .As needed PRN 90 days Tobacco use date assessed: 07/03/23 Dental Screening Dental Screen Date: 07/03/23 Did you have a dental visit in the last 12 months?: Yes Did you have a dental problem in the last 6 months where you did not have access to dental care?: No Was dental information given to patient?: Patient has dentist HPI f/u DMII HPI Details Patient is a 53 year-old male here today for follow-up visit. ? significant for HTN, DMII, HLD, ED, VALLES, ? Chronic lumbar spine pain,chronic left foot navicular fx. ? .. Lumbar disc disease: reports continues to have lower back pain , worse with long periods of sitting and standing. Has seen [facility] in the past and was given gabapentin which was not effective in reducing his pain. 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 He would like to reestablish care with pain management and perhaps get injections to help him with his back pain. .. Bilateral hand arthritis : Does have trigger thumb. Seen orthopedic in the past and received injection which was ineffective. He is interested in reestablishing with hand surgeon for possible surgery .. ? HTN: ? He reports blood pressures when taken at home have been stable. ? patient denies any shortness of breath, chest discomfort or headaches. Continues on? Lisinopril 10 mg. ? .. ? DMII:? Reports he has been tring to follow a DM diet. Seeing DM Educator/ engraver pantograph. . continues on metformin, Jardiance and Trulicity.? Today's A1c 7.5 from 9.5. Diet has been alot better. Laboratory Tests 07/06/21 03/28/22 06/06/22 12:18 09:02 11:27 RBC 5.68 Hgb 16.9 Creatinine 0.78 Random Glucose Fasting Glucose 178 H Hgb A1c (Clinic) 8.2 H Hemoglobin A1c % 7.8 Cholesterol 152 LDL Cholesterol, C alc Lipase Prostate Specific Ag Urine Microalbumin 06/06/22 11/09/22 11/09/22 11:27 07:16 07:19 RBC 5.27 Hgb Creatinine Random Glucose Fasting Glucose 167 H Hgb A1c (Clinic) Hemoglobin A1c % Cholesterol LDL Cholesterol, C alc 81 Lipase Prostate Specific Ag Urine Microalbumin < 5.0 11/09/22 11/09/22 02/24/23 07:19 07:19 14:16 RBC 5.18 Hgb 15.6 Creatinine 0.88 0.78 Random Glucose 138 H Fasting Glucose Hgb A1c (Clinic) Hemoglobin A1c % 7.3 Cholesterol 155 LDL Cholesterol, C alc 84 Lipase 27 Prostate Specific Ag 0.62 Urine Microalbumin 04/02/23 07/03/23 08:06 08:01 RBC Hgb Creatinine Random Glucose Fasting Glucose Hgb A1c (Clinic) 9.5 H 7.4 H Hemoglobin A1c % Cholesterol LDL Cholesterol, C alc Lipase Prostate Specific Ag Urine Microalbumin [facility] Medical History (Updated 07/03/23 @ 08:31 by Juni Ro PA-C) Diverticulosis of colon Diabetes type 2, uncontrolled Overweight Smoking Chronic sinusitis Hyperlipidemia LDL goal <100 Essential hypertension Controlled diabetes mellitus without complication, without long-term current use of insulin Anxiety Depression HTN (hypertension) Diabetes Surgical History Hx of colonoscopy History of nasal surgery Hx of rhinoplasty Hx of foot surgery History of cataract surgery History of appendectomy H/O elbow surgery History of repair of rotator cuff Family History Mother Diabetes Hypertension Father Medical history unknown Social History Household Members: None Housing: House Alcohol intake: never Patient Tobacco Use Status: Former Tobacco user Quit Date: 2018 Tobacco use type: Cigarette Years Smoked: 1 1/2 year ago e-Cigarette/Vaping Use: Never Used Second Hand Smoke Exposure: No service: No 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al status: unemployed and disabled 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 1. Little interest or pleasure in doing things: not at all 2. Feeling down, depressed, or hopeless: not at all 3. Trouble falling or staying asleep, or sleeping too much: not at all 4. Feeling tired or having little energy: not at all 5. Poor appetite or overeating: not at all 6. Feeling bad about yourself - or that you are a failure or have let yourself or your family down: not at all 7. Trouble concentrating on things, such as reading the newspaper or watching television: not at all 8. Moving or speaking so slowly that other people could have noticed. Or the opposite - being so fidgety or restless that you have been moving around a lot more than usual: not at all 9. Thoughts that you would be better off or of hurting yourself in some way: not at all Total score: 0 Depression Screening Interpretation: Negative Depression Screening Done: Yes 58945 - PHQ-9 Billing: Yes Source: Developed by Drs. Rasheed Pena, Fanta Dutton, Garcia Parham and colleagues, with an educational jerrod from [employer]. Thrive Questionnaire Date Thrive assessed: 07/03/23 I am a: Patient What is your living situation today?: I have a steady place to live Within the past 12 months, did the food you bought not last and you didn't have the money to get more?: Never true Within the past 12 months, did you worry whether your food would run out before you got money to buy more?: Never true Do you have trouble paying for medicines?: No Do you have trouble getting transportation to medical appointments?: No Do you have trouble paying your heating and electricity bill?: No Do you have trouble taking care of your child, family member or friend?: No Do you have trouble with day-to-day activities such as bathing, preparing meals, shopping, managing finances, etc.?: No Are you currently unemployed and looking for a job?: No Are you interested in more education?: No Currently or been in a relationship where the following occur: no concerns reported AUDIT C Alcohol Use Questionnaire (AUDIT-C) 1. How often do you have a drink containing alcohol?: Never 3. How often do you have six or more drinks on one occasion?: Never Total Score: 0 Score Reviewed/Action Taken: No FRANCISCO-7 AMB Questionnaire FRANCISCO-7 Date FRANCISCO - 7 assessed: 07/03/23 Feeling nervous, anxious, or on edge: 0 = Not at all Not being able to stop or control worryin = Not at all Worrying too much about different things: 0 = Not at all Trouble relaxin = Not at all Being so restless that it is hard to sit still: 0 = Not at all Becoming easily annoyed or irritable: 0 = Not at all Feeling afraid as if something awful might happen: 0 = Not at all Total FRANCISCO-7 score (0-4 normal; 5-9 mild; 10-14 moderate; 15-21 severe): 0 Source: Developed by Drs. Rasheed Pena, Fanta Dutton, Garcia Parham and colleagues, with an educational jerrod from [employer]. FRANCISCO-7 Assessment Billing FRANCISCO-7 Assessment Tool: FRANCISCO-7 Assessment 90346 Review of Systems Const Denies headache(s) Eyes Denies loss of vision ENT Denies vertigo, Denies dizziness, Denies headache(s) and Denies sore throat Card Denies chest pain, Denies leg edema and Denies lightheadedness Resp Denies cough, Denies hemoptysis and Denies wheezing GI Denies abdominal pain, Denies melena, Denies constipation, Denies diarrhea and Denies vomiting Denies dysuria, Denies urinary frequency and Denies urinary urgency Musc Denies arthralgias, Denies joint swelling, Denies numbness and Denies tingling Neuro Denies Abnormal speech present, Denies behavioral changes, Denies vertigo, Denies dizziness, Denies headache(s), Denies loss of vision, Denies memory loss, Denies numbness and Denies tingling Psych Denies anxiety, Denies behavioral changes, Denies depression, Denies memory loss and Denies panic attacks Deshawn/Lymph Denies easy bleeding and Denies easy bruising Aller/Immun Denies wheezing Physical exam (Primary Care) Vital Signs: Last Vital Signs Pulse 71 07/03/23 07:59 BP 102/82 07/03/23 07:59 Pulse Ox 98 07/03/23 07:59 Oxygen Delivery Method Room Air 07/03/23 07:59 BMI result Body Mass Index 26.5 Tobacco/Smoking Status: Tobacco use Status Tobacco use date assessed 07/03/23 07/03/23 08:00 Patient Tobacco Use Status Former Tobacco user 07/03/23 08:00 Tobacco use type Cigarette 07/03/23 08:00 e-Cigarette/Vaping Use Never Used 07/03/23 08:00 PHQ-9: PHQ-9 Score PHQ-9: Total score 0 07/03/23 08:14 Depression Screening Interpretation: Negative Thrive Assessment: Date of Thrive Assessment Date Thrive assessed 07/03/23 07/03/23 08:00 Currently or been in a relationship where the following occur: no concerns reported Const General: healthy appearing, no acute distress, alert and awake Nutritional Appearance: well nourished Orientation/consciousness: oriented to person, oriented to place and oriented to time HENMT Ears: TM's normal bilaterally General nose exam: Normal nasal mucous membranes and turbinates present Eyes Conjunctivae: conjunctivae normal Sclerae: sclerae normal Pupils: Equal, round and reactive pupils present Neck Neck: Yes no lymphadenopathy and Yes no JVD Thyroid: Thyroid normal Carotids: no bruits Resp Effort & Inspection: normal respiratory effort and not tachypneic Auscultation: no crackles, no rales, no rhonchi and no wheezes Cardio Rate: regular rate Rhythm: regular rhythm Heart sounds: no murmurs and normal S1 and S2 GI Palpation (GI): Soft to palpation, nontender, no hepatomegaly and no splenomegaly Auscultation: normal bowel sounds Skin General skin exam: no rashes or lesions noted and dry skin Neuro General: oriented to person, oriented to place and oriented to time Cranial nerves: Yes Equal, round and reactive pupils present Speech: No Abnormal speech present Gait exam (Neuro): Normal gait present Motor exam (neuro): no tremor noted Extrem Right upper extremity: full ROM Left upper extremity: full ROM Right lower extremity: full ROM; no edema Left lower extremity: full ROM; no edema Psych Mental Status: mental status grossly normal Speech and movement: Normal speech and movement present Affect: normal affect Attitude: cooperative Thought process: Normal thought process present Results AMB Hemoglobin A1c AMB Hemoglobin A1c 7.4 % Last Edit by Teresa Munoz CMA on 07/03/23 08:14 Results Reviewed Results Reviewed: Laboratory Last Values Hgb A1c (Clinic) 7.4 % (4.0-6.0) H 07/03/23 08:01 Assessment and Plan Assessment & Plan (1) Diabetes type 2, uncontrolled: Code(s): E11.65 - Type 2 diabetes mellitus with hyperglycemia Qualifiers: Glycemic state: with hyperglycemia Qualified Code(s): E11.65 - Type 2 diabetes mellitus with hyperglycemia Plan: Patient's type 2 diabetes suboptimally controlled today's A1c at 7.5 , though has been much better controlled lately. Has been working on dietary changes. Continues to follow a engraver pantograph. Continues on Trulicity 0.75, he is interested in reducing his metformin as he does feel hypoglycemia in the evenings. He would try to reduce to half a tablet of metformin at night. He will work extensively on lifestyle modifications to reduce his carbohydrates in his diet. Goal A1c is to be below 7.0 (2) Essential hypertension: Code(s): I10 - Essential (primary) hypertension Plan: Patient's blood pressure acceptable today in office. Will continue current dose of antihypertensive medication with goal blood pressure be below 140/90 (3) Hyperlipidemia LDL goal <100: Code(s): E78.5 - Hyperlipidemia, unspecified Plan: Patient's cholesterol has been stable with current statin potency. Goal LDL to be below 100 (4) Degenerative disc disease at L5-S1 level: Code(s): M51.37 - Other intervertebral disc degeneration, lumbosacral region Plan: Was followed by [facility] pain management. He has gotten lumbar injections though felt there were not effective. He will reach back out to Pain Management about further pain reduction modalities. (5) Trigger thumb, left thumb: Code(s): M65.312 - Trigger thumb, left thumb Plan: He continues to have left thumb stiffness and catching He has got injection though was not effective. He is interested in possible surgery now that his diabetes is much better controlled. Orders: Orders AMB Hemoglobin A1c Today Z13.9 - Encounter for screening, unspecified Comprehensive Recluse. Panel Fast Today E11.65 - Type 2 diabetes mellitus with hyperglycemia Microalbumin, Random (w Creat) Today E11.65 - Type 2 diabetes mellitus with hyperglycemia Prostate Specific Antigen Scr Today E11.65 - Type 2 diabetes mellitus with hyperglycemia, Z12.5 - Encounter for screening for malignant neoplasm of prostate Lipid Panel Today E78.5 - Hyperlipidemia, unspecified Medications: Refilled montelukast 10 mg PO DAILY 90 days 90 tabs 1RF J30.89 - Other allergic rhinitis pantoprazole 40 mg PO DAILY 90 days 90 tabs 1RF E11.65 - Type 2 diabetes mellitus with hyperglycemia Coding Level of Care Code Est Pt Level 4 (77447) Diagnoses Uncontrolled type 2 diabetes mellitus with hyperglycemia E11.65 Glycemic state: with hyperglycemia Essential hypertension I10 Hyperlipidemia LDL goal <100 E78.5 Degenerative disc disease at L5-S1 level M51.37 Trigger thumb, left thumb M65.312 Additional Codes FRANCISCO-7 Assessment Billing - FRANCISCO-7 Assessment Tool: FRANCISCO-7 Assessment [id number] ([id number])
[2023-07-03 07:59] VITALS: BP 102/82; PULSE 71; O2SAT 98; BMI 26.5
== END 2023-07-03 08:41 | disposition home or self-care (01) ==
PROVIDERS: PCP Physician Assistant; Visit Provider Physician Assistant
DX: E11.65 Type 2 diabetes mellitus with hyperglycemia (principal); I10 Essential (primary) hypertension; E78.5 Hyperlipidemia, unspecified; M51.37 Other intervertebral disc degeneration, lumbosacral region; M65.312 Trigger thumb, left thumb
CPT/HCPCS: 83036; 99214

== ENCOUNTER 2023-07-23 08:49 | Outpatient (AMB) | payer OTHER, SELFPAY ==
--- NOTE | 2023-07-23 09:11 | A.OFFVIS_ITS ---
Intake Intake Visit Reasons: 1Y Follow Up(Erectile Dys) Intake Note: Patient presents today for a follow-up on: Erectile Dysfunction Meds- Tadalafil Allergies to Antibiotic- No Known Allergies Blood Thinner- Aspirin Clinical Support Manager Required: No Accompanied by: Self / Same As Patient Allergies No Known Allergies [No Known Allergies*] Allergy (Verified 07/23/23 09:14) HPI HPI Comments History of Present Illness Details Stevan is a Togolese-speaking male. He is a patient of Dr. Ro. He is seen for the following urologic conditions. - erectile dysfunction Erectile dysfunction: Yearly follow-up Using 10 mg 3 times per week Has relatively good success Would like to increase at time of activity 20 mg on demand prescription provided to add to baseline PSA 06/14 0.6, 23 .6 He presents today for further evaluation of erectile dysfunction. Symptoms have been present for/since Several years. Current treatment includes Viagra/sildenafil - short trial minimal impact. Prior therapies include oral medications. At this time he experiences erections are partial and adequate for vaginal penetration, that undergo rapid detumesence after penetration, LINDA 8-11 Moderate ED. Nocturnal erections do occur. Currently they are in a stable relationship. Associated problems hypertension Yes diabetes Yes dyslipidemia Yes Overall he is is not satisfied with the current management. Therapeutic plan includes increasing dose of oral medication [facility] Medical History Diverticulosis of colon Diabetes type 2, uncontrolled Overweight Smoking Chronic sinusitis Hyperlipidemia LDL goal <100 Essential hypertension Controlled diabetes mellitus without complication, without long-term current use of insulin Anxiety Depression HTN (hypertension) Diabetes Surgical History Hx of colonoscopy History of nasal surgery Hx of rhinoplasty Hx of foot surgery History of cataract surgery History of appendectomy H/O elbow surgery History of repair of rotator cuff Family History Mother Diabetes Hypertension Father Medical history unknown Social History Household Members: None Housing: House Alcohol intake: never Patient Tobacco Use Status: Former Tobacco user Quit Date: 2018 Tobacco use type: Cigarette Years Smoked: 1 1/2 year ago e-Cigarette/Vaping Use: Never Used Second Hand Smoke Exposure: No service: No 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al status: unemployed and disabled 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 Cognitive needs: No Hearing needs: No Vision needs: Yes Review of Systems Const Denies chills and Denies fever(s) Card Reports no additional complaints and Denies syncope Resp Denies cough GI Denies abdominal pain and Denies heartburn Reports as per HPI and Denies change in libido Neuro Denies syncope Psych Denies change in libido Endo Denies change in libido Physical Exam Const General: cooperative, healthy appearing, comfortable and no acute distress Orientation/consciousness: patient oriented x3 HEENT Face and sinus: Yes normal facial exam Mouth: moist mucous membranes Neck Neck: Yes normal visual inspection, Yes full ROM and Yes trachea midline Chest Chest palpation & inspection: normal inspection of the chest Resp Effort & Inspection: normal respiratory effort, able to speak in complete sentences and no respiratory distress GI Inspection: Yes normal to inspection Back/Spine/Pelvis Cervical Spine: normal cervical lordosis Thoracic/Lumbar Spine: thoracic and lumbar spine normal to inspection Skin General skin exam: no rashes or lesions noted Neuro General: patient oriented x3, gait normal, tone normal and moves all extremities Extrem General: Yes normal to inspection and Yes capillary refill normal Assessment & Plan Assessment & Plan (1) Erectile dysfunction associated with type 2 diabetes mellitus: Code(s): E11.69 - Type 2 diabetes mellitus with other specified complication; N52.1 - Erectile dysfunction due to diseases classified elsewhere Plan Twelve month follow-up Baseline + on demand PDE5 Medications: New tadalafil [id number] [facility] [id number] Member [id number] 20 mg PO ONCE 30 days PRN 30 tabs 0RF sexual activity E11.69 - Type 2 diabetes mellitus with other specified complication, N52.1 - Erectile dysfunction due to diseases classified elsewhere Patient Instructions: Imaging studies, laboratory and physical exam results were discussed and reviewed in detail. No major barriers to patient understanding were identified. An opportunity to ask questions regarding the treatment plan was provided. All questions were answered. The patient expressed understanding and agreement with the above treatment plan. The patient is aware they should contact our office by phone for worsening of their current condition or the appearance of new urologic symptoms. Compliance is encouraged with any medications and followup testing that is ordered. It is a privilege to participate in the urologic care of your patient. If you have any questions or concerns regarding treatment for the above conditions, or other urologic issues, please do not hesitate to contact me. The office tel ephone contact is [phone]. This note is constructed using voice recognition software. While every effort has been made to ensure accuracy sales support assistant errors may have been included. Yours sincerely, Dr Zachary Steve MD, [facility] - Urology Providers of Expert, Compassionate Care for the Genitourinary System Coding Level of Care Code Est Pt Level 4 (38340) Diagnoses Erectile dysfunction associated with type 2 diabetes mellitus E11.69; N52.1
== END 2023-07-23 09:32 | disposition home or self-care (01) ==
PROVIDERS: Visit Provider Urology
DX: E11.69 Type 2 diabetes mellitus with other specified complication (principal); N52.1 Erectile dysfunction due to diseases classified elsewhere
CPT/HCPCS: 99214

== ENCOUNTER 2023-07-23 09:33 | Outpatient (AMB) | payer OTHER, SELFPAY ==
--- NOTE | 2023-07-23 10:04 | MHC.OFFVIS ---
Intake Vital Signs 07/23/23 10:09 Height 5 ft 10 in Weight 185 lb BMI 26.5 Handedness Right Intake Visit Reasons: New Prob - Rt Hand Pain/Bump Intake Note: Stevan is a 53 year old right hand dominant male who presents today for a evaluation of a bump on his right hand, s/p right 2nd Metacarpal Foreign body removal 03/11/23. He states that he noticed a lump on the volar aspect of the base of the palm about a year ago. Patient reports that the lump is not causing him a lot of pain. He states he would like to know if it is going to harm him. Allergies No Known Allergies [No Known Allergies*] Allergy (Verified 07/23/23 10:08) HPI New Prob - Rt Hand Pain/Bump HPI Details 53-year-old right hand dominant male, who is Citizen Of [place] speaking, presents in the office today for an evaluation of right hand pain and bump. The patient reports noticing a lump on the volar aspect of the base of the palm for about a year, since 2022. He states the lump does not cause him pain, but is increasing in size. He would like to know if this is harmful to him. Patient is 4 months status post right hand foreign body removal, which was performed on 03/11/[address] Mariscal. PENDING SALE TO [facility] Medical History Diverticulosis of colon Diabetes type 2, uncontrolled Overweight Smoking Chronic sinusitis Hyperlipidemia LDL goal <100 Essential hypertension Controlled diabetes mellitus without complication, without long-term current use of insulin Anxiety Depression HTN (hypertension) Diabetes Surgical History Hx of colonoscopy History of nasal surgery Hx of rhinoplasty Hx of foot surgery History of cataract surgery History of appendectomy H/O elbow surgery History of repair of rotator cuff Family History Mother Diabetes Hypertension Father Medical history unknown Social History Household Members: None Housing: House Alcohol intake: never Patient Tobacco Use Status: Former Tobacco user Quit Date: 2018 Tobacco use type: Cigarette Years Smoked: 1 1/2 year ago e-Cigarette/Vaping Use: Never Used Second Hand Smoke Exposure: No service: No 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al status: unemployed and disabled 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 No ecchymosis, erythema, or edema. Cord like structure on the palmar aspect over the 4th metacarpal. No tenderness to palpation. No area of fluctuance. Able to perform full finger flexion, extension, abduction, adduction, finger cross, okay sign, and thumbs up without deficit. Able to make a closed fist. Sensation intact. Capillary refill is brisk. Radial pulse intact. Assessment & Plan Assessment & Plan (1) Dupuytren's contracture of right hand: Code(s): M72.0 - Palmar fascial fibromatosis [Dupuytren] Plan Mr. Reyes is a 53-year-old right hand dominant male, who is Citizen Of [place] speaking, presents in the office today for an evaluation of right hand pain and bump. The patient reports noticing a lump on the volar aspect of the base of the palm for about a year, since 2022. He states the lump does not cause him pain, but is increasing in size. He would like to know if this is harmful to him. Patient is 4 months status post right hand foreign body removal, which was performed on 03/11/[address] Mariscal. 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 Follow up will be PRN, or sooner if needed. X-rays of the right hand which were obtained while in the office today and were reviewed by me, Yaritza Tejada PA-C, revealed no acute fracture or dislocation. Orders: Orders XR hand RT min 3V Today M79.643 - Pain in unspecified hand Patient Instructions: Scribed for Yaritza Tejada PA-C by Marguerite Fernández, medical record librarian, on 07/23/2023 at 9:38 am, EST. Coding Level of Care Code New Pt Level 3 (12583) Diagnoses Dupuytren's contracture of right hand M72.0
[2023-07-23 10:09] VITALS: BMI 26.5
== END 2023-07-23 10:39 | disposition home or self-care (01) ==
PROVIDERS: PCP Physician Assistant; Visit Provider Physician Assistant
DX: M72.0 Palmar fascial fibromatosis [Dupuytren] (principal)
CPT/HCPCS: 99203

== ENCOUNTER 2023-07-23 12:02 | Outpatient (REF) | payer OTHER, SELFPAY ==
--- NOTE | ~2023-07-23 | XR_ITS ---
EXAMINATION: XR HAND, RIGHT CLINICAL INFORMATION: Palmar lump; pain. COMPARISON: Radiographs dated 10/07/2020. TECHNIQUE: PA, lateral, and oblique views of the right hand. FINDINGS: Bony alignment and mineralization are normal. There is a neutral ulnar variance. There is a small periventricular calcification adjacent to the interphalangeal joint of the thumb. There is mild osteoarthritic change of the third proximal interphalangeal joint. There is mild osteoarthritic change of the second carpometacarpal joint. No fracture or dislocation is seen. There is no abnormal bone erosion. The proximal and distal carpal rows are intact. No focal soft tissue swelling, gas or foreign body is seen. XR/XR hand RT min 3V IMPRESSION: Multi-focal mild osteoarthritic change is seen of the right hand. No fracture or dislocation is seen. There is no abnormal bone erosion.
== END 2023-07-23 12:03 | disposition home or self-care (01) ==
LOC: HO.HOSX 12:02
PROVIDERS: Visit Provider Physician Assistant
DX: M79.641 Pain in right hand (principal); M72.0 Palmar fascial fibromatosis [Dupuytren]; I10 Essential (primary) hypertension; E78.5 Hyperlipidemia, unspecified; E11.69 Type 2 diabetes mellitus with other specified complication; N52.1 Erectile dysfunction due to diseases classified elsewhere; Z79.899 Other long term (current) drug therapy; Z79.82 Long term (current) use of aspirin
CPT/HCPCS: 73130; 99202; 99212

== ENCOUNTER 2023-07-26 08:30 | Outpatient (AMB) | payer OTHER, SELFPAY ==
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
[2023-07-26 08:43] VITALS: BP 137/80; PULSE 77; O2SAT 98; BMI 26.5
== END 2023-07-26 08:58 | disposition home or self-care (01) ==
PROVIDERS: PCP Physician Assistant; Visit Provider Nurse Practitioner Family
DX: M54.59 Other low back pain (principal); G89.4 Chronic pain syndrome; M51.36 Other intervertebral disc degeneration, lumbar region; M47.816 Spondylosis without myelopathy or radiculopathy, lumbar region
CPT/HCPCS: 99213; 99214

== ENCOUNTER → 2023-07-26 08:30 | Outpatient (BNVA) | payer OTHER, SELFPAY | PROVIDERS: PCP Physician Assistant; Visit Provider Nurse Practitioner Family | DX: M51.37 Other intervertebral disc degeneration, lumbosacral region (principal); M47.816 Spondylosis without myelopathy or radiculopathy, lumbar region; M54.16 Radiculopathy, lumbar region; M54.51 Vertebrogenic low back pain | CPT/HCPCS: 99212 ==

== ENCOUNTER 2023-09-03 06:08 | Outpatient (REF) | payer OTHER, SELFPAY ==
--- NOTE | ~2023-09-03 | FL_ITS ---
EXAMINATION: XR FLUOROSCOPY WITH IMAGES CLINICAL INFORMATION: Low back pain COMPARISON: None available. TECHNIQUE: Fluoroscopy Supervised By: Zina. Fluoroscopy Time: 0.6. Cumulative Dose: 9.31 mGy. DAP: 0.161 Gycm2. Images: 2. FINDINGS: There are 2 digital images revealing needle positioned inferior to the right and left L5 pedicles with contrast opacifying extraspinal epidural space for pain management. Visualized bones are grossly unremarkable. There are surgical sandra in the right midabdomen. FL/FL guidance in treatment room IMPRESSION: Fluoroscopy was provided to referrer for pain management.
== END 2023-09-03 06:09 | disposition home or self-care (01) ==
LOC: CF 06:08
PROVIDERS: Visit Provider Anesthesiology
DX: M54.51 Vertebrogenic low back pain (principal); M54.16 Radiculopathy, lumbar region; M51.37 Other intervertebral disc degeneration, lumbosacral region; M47.816 Spondylosis without myelopathy or radiculopathy, lumbar region
CPT/HCPCS: 64483; J3301; Q9967

== ENCOUNTER 2023-09-03 07:01 | Outpatient (AMB) | payer OTHER, SELFPAY ==
[2023-09-03 07:18] VITALS: BP 122/72; PULSE 73; RESP 18; O2SAT 97; BMI 26.5
--- NOTE | 2023-09-03 07:18 | A.OFFVIS_ITS ---
Intake Vital Signs 09/03/23 07:18 09/03/23 08:16 Height 5 ft 10 in Weight 185 lb BMI 26.5 BP 122/72 128/88 Blood Pressure Location Lt brachial Lt brachial Position Sitting Sitting Respiration 18 Pulse 73 70 Pulse Source Pulse Oximeter Pulse Oximeter Pulse Oximetry (%) 97 98 Oxygen Delivery Method Room Air Room Air Comment Pre-Op Post-Op Intake Visit Reasons: BILATERAL L5, S1 TFESI Allergies No Known Allergies [No Known Allergies*] Allergy (Verified 07/26/23 08:42) PFSH Medical History Diverticulosis of colon Diabetes type 2, uncontrolled Overweight Smoking Chronic sinusitis Hyperlipidemia LDL goal <100 Essential hypertension Controlled diabetes mellitus without complication, without long-term current use of insulin Anxiety Depression HTN (hypertension) Diabetes Surgical History Hx of colonoscopy History of nasal surgery Hx of rhinoplasty Hx of foot surgery History of cataract surgery History of appendectomy H/O elbow surgery History of repair of rotator cuff Family History Mother Diabetes Hypertension Father Medical history unknown Social History Household Members: None Housing: House Alcohol intake: never Patient Tobacco Use Status: Former Tobacco user Quit Date: 2018 Tobacco use type: Cigarette Years Smoked: 1 1/2 year ago e-Cigarette/Vaping Use: Never Used Second Hand Smoke Exposure: No service: No 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al status: unemployed and disabled 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 Cognitive needs: No Hearing needs: No Vision needs: Yes Physical Exam Vital Signs: Last Vital Signs Pulse 70 09/03/23 08:16 Resp 18 09/03/23 07:18 BP 128/88 09/03/23 08:16 Pulse Ox 98 09/03/23 08:16 Oxygen Delivery Method Room Air 09/03/23 08:16 BMI result Body Mass Index 26.5 Assessment & Plan Assessment & Plan (1) Degenerative disc disease at L5-S1 level: Code(s): M51.37 - Other intervertebral disc degeneration, lumbosacral region (2) Lumbar spondylosis: Code(s): M47.816 - Spondylosis without myelopathy or radiculopathy, lumbar region (3) Lumbar radiculopathy: Code(s): M54.16 - Radiculopathy, lumbar region Plan: Transforaminal epidural steroid injection L5-S1 bilateral Informed consent was thoroughly explained to the patient before the procedure.? The patient came to the operating room.? He was positioned prone on operating table with a pillow under his abdomen.? Time-out was performed delineating correct site and side of the procedure, nature of the injection, name and date of of the patient. The lower back of the patient was prepped with ChloraPrep and draped with sterile utility towels.? C-arm was brought over the operating field and sq picture of L5 vertebra were demonstrated on the screen.? The right side was chosen as the side of the injection.? Tilting machine ipsilateral to the right at the level of L5 1st the most prominent picture of the right L5 pedicle was obtained on the screen.? 3 mm below the level of the lowest point of the pedicle projection to the skin small amount of lidocaine 1% 3-4 cc was injected to anesthetize the skin.? After that 5 in 22 gauge Quincke point needle was inser jesi through the skin wheal and was advanced to were the L5-S1 foramina on anterior posterior , lateral and oblique views intermittently.? When tip of the needle entered foramina projection on AP view injection of the contrast was performed demonstrating epidural and perineural spread of the contrast.? On the lateral view contrast was spread in the epidural fashion. After that injection of the treatment medicine 4 cc of lidocaine 1% mixed with kenalog 20 mg was injected into the foramina.? No intrathecal and no intravascular spread of the contrast was noted. After that the procedure was repeated in the left L5- S1 foramina in mirroring fashion. Upon completion of the procedure sterile Band-Aids were applied. Patient tolerated procedure well he was taken outside of the operating room where he recovered uneventfully.? he went home without immediate complications. (4) Vertebrogenic low back pain: Code(s): M54.51 - Vertebrogenic low back pain Plan Schedule Bilateral L5-S1 TFESI with local and fluoroscopy for persistent radicular and discogenic symptoms. Expectations, risks and benefits were reviewed. Patient is aware he will be contacted to schedule this procedure. Most recent A1C is 7.4, decrease from 9.5. Patient encouraged to continue good work on managing his DM, adherence to ADA and medication regime. Refills provided for methocarbamol at patient's request. Continue gabapentin. Patient will also trial short script of tramadol for moderate-severe pain while awaiting for injections. All questions were answered and the patient is in agreement with the treatment plan. Follow-up as needed. Orders: Orders FL guidance in treatment room Today M54.16 - Radiculopathy, lumbar region, M54.51 - Vertebrogenic low back pain Coding Level of Care Code Procedure Only Diagnoses Degenerative disc disease at L5-S1 level M51.37 Lumbar spondylosis M47.816 Lumbar radiculopathy M54.16 Vertebrogenic low back pain M54.51
[2023-09-03 08:16] VITALS: BP 128/88; PULSE 70; O2SAT 98
== END 2023-09-03 08:13 | disposition home or self-care (01) ==
LOC: HO.PMCPRC 07:01
PROVIDERS: PCP Physician Assistant; Visit Provider Anesthesiology
DX: M54.16 Radiculopathy, lumbar region (principal)
CPT/HCPCS: 64483

== ENCOUNTER 2023-09-16 10:09 | Day surgery (SDC) | payer OTHER, SELFPAY ==
[2023-09-16 11:04] VITALS: BMI 28.0
--- NOTE | 2023-09-16 12:33 | MHC.SHP ---
Pre-Procedural Eval Section A - 24 Hr Update-Section A only Date of Service: 09/16/23 The patient is an INPATIENT: No Changes since office visit: No Cold of Flu in the past 2 weeks, No New Medical Problems, No Changes in Medication and No Patient answered all questions The patient has been examined within 24 hours of the surgical procedure. The History & Physical has been completed within 30 days and I have reviewed it.: Yes Section B - Complete if H&P > 30 days Chief Complaint: Trigger thumb, left thumb Allergies: Allergies Allergy/AdvReac Type Severity Reaction Status Date / Time No Known Allergies Allergy Verified 07/26/23 08:42 [No Known Allergies*] Plan I have reviewed the history and physical and performed a pertinent physical examination on my patient. No changes have occurred unless specified. Time Spent With Patient Time: Total time managing care of this patient today ____ minutes.
--- NOTE | 2023-09-16 12:33 | W.PM.OPN ---
Operative Note Operative Note Date of Service: 09/16/23 Narrative: Operative Note Preop diagnosis: 1. Left trigger thumb Postop diagnosis: 1. Same Procedure: 1. Left thumb A1 denise release Surgeon: Tata Mariscal MD Anesthesia: local block using 1% lidocaine with epinephrine Findings: No locking or catching after A1 denise release EBL: Less than 5 mL Tourniquet time: None Specimens: None Complications: None Disposition: Brought to recovery room in stable condition Plan: Follow-up for 10-14 days for wound check and suture removal Indications: The patient is 53 years old, with a left thumb trigger finger that has been unresponsive to nonoperative management. The risks and benefits of operative treatment including but not limited to risk of damage to blood vessels, nerves, tendons, infection, persistent pain, persistent symptoms, recurrence or possible need for additional surgery were discussed with the patient and the patient wishes to proceed with surgery. Procedure: Once consent was obtained a local block was performed in the preop area using a combination of 1% lidocaine with epinephrine. The patient was then brought back to the operating suite and placed on the operative table in supine position. The left upper extremity was prepped and draped in a standard surgical fashion. Once assured that we had a good block, a 1.5 cm oblique incision was made centered over the A1 denise of the left thumb . The incision was made through the skin to the subcutaneous tissues using a #15 blade. Careful dissection was made down to the level of the A1 denise using tenotomy scissors, with care being taken to protect the nearby neurovascular structures. A longitudinal incision was made in the A1 denise 1st using a #15 blade, then using tenotomy scissors under direct visualization. The A1 denise was noted to be thickened. Following our A1 denise release, we no longer saw any locking or catching of the digit with flexion and extension. Once satisfied with our A1 denise release the wound was copiously irrigated with normal saline and hemostasis was obtained with a brief period of local pressure. The skin edges were reapproximated with some 5.0 nylon suture material and a sterile dressing was applied. The patient appears to have tolerated the procedure well and with no complications. All digits were well vascularized at the conclusion of the case.
--- NOTE | 2023-09-16 14:42 | HO.INF ---
VITAL SIGNS POST OP: 123/73, 67, 18, 96%.
== END 2023-09-16 14:40 | disposition home or self-care (01) ==
PROVIDERS: PCP Physician Assistant; Visit Provider Orthopaedic Surgery
PROC: (CPT 26055; principal; 2023-09-16 13:10)
DX: M65.312 Trigger thumb, left thumb (principal); Z98.890 Other specified postprocedural states; E11.9 Type 2 diabetes mellitus without complications; F17.210 Nicotine dependence, cigarettes, uncomplicated; E78.5 Hyperlipidemia, unspecified; I10 Essential (primary) hypertension; F41.8 Other specified anxiety disorders
CPT/HCPCS: 26055; J0171

== ENCOUNTER → 2023-09-16 10:09 | Outpatient (BNV) | payer OTHER, SELFPAY | PROVIDERS: PCP Physician Assistant; Visit Provider Orthopaedic Surgery | DX: M65.312 Trigger thumb, left thumb (principal) | CPT/HCPCS: 26055 ==

== ENCOUNTER 2023-09-18 09:36 | Outpatient (AMB) | payer OTHER, SELFPAY ==
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
[2023-09-18 09:41] VITALS: BP 118/80; PULSE 75; RESP 16; O2SAT 98; BMI 28.0
== END 2023-09-18 10:28 | disposition home or self-care (01) ==
PROVIDERS: PCP Physician Assistant; Visit Provider Anesthesiology
DX: M51.37 Other intervertebral disc degeneration, lumbosacral region (principal); M47.816 Spondylosis without myelopathy or radiculopathy, lumbar region; M54.16 Radiculopathy, lumbar region; M54.51 Vertebrogenic low back pain
CPT/HCPCS: 99214

== ENCOUNTER → 2023-09-18 09:36 | Outpatient (BNVA) | payer OTHER, SELFPAY | PROVIDERS: PCP Physician Assistant; Visit Provider Nurse Practitioner Family | DX: M51.37 Other intervertebral disc degeneration, lumbosacral region (principal); M47.816 Spondylosis without myelopathy or radiculopathy, lumbar region; M54.16 Radiculopathy, lumbar region; M54.51 Vertebrogenic low back pain | CPT/HCPCS: 99212 ==

== ENCOUNTER 2023-09-25 08:44 | Outpatient (REF) | payer OTHER, SELFPAY ==
[2023-09-25 11:22] LABS: Prostate Specific Antigen Scr 0.48 ng/mL (<0.05-4.0)
[2023-09-25 11:25] LABS: Alanine Aminotransferase 36 U/L (0-40); Alkaline Phosphatase 63 U/L (39-117); Anion Gap 11 (12-20); Aspartate Amino Transferase 19 U/L (5-37); Bilirubin Total 0.7 mg/dL (0.0-1.0); Blood Urea Nitrogen 17 mg/dL (9-16); Calcium 8.8 mg/dL (8.4-10.2); Carbon Dioxide 28 mmol/L (22-29); Chloride 103 mmol/L (96-108); Cholesterol 153 mg/dL (<200); Estimated Glomerular Filt Rate > 60; Glucose Fasting 138 mg/dL (60-99); HDL Cholesterol 60 mg/dL (>40); LDL Cholesterol Calculated 84 mg/dL (<100); Potassium 4.3 mmol/L (3.3-5.1); Sodium 138 mmol/L (135-145); Total Protein 6.8 g/dL (6.5-8.0); Triglycerides 46 mg/dL (<150)
[2023-09-25 11:48] LABS: Creatinine Urine 83.46 mg/dL; Microalbum/Creatinine Ratio Ur 8.3 ug/mg cr (<30)
== END 2023-09-25 08:45 | disposition home or self-care (01) ==
LOC: HO.LAB 08:44
PROVIDERS: PCP Physician Assistant; Visit Provider Physician Assistant
DX: Z12.5 Encounter for screening for malignant neoplasm of prostate (principal); E78.5 Hyperlipidemia, unspecified; E11.65 Type 2 diabetes mellitus with hyperglycemia
CPT/HCPCS: 36415; 80053; 80061; 82043; 82570; 84153

== ENCOUNTER 2023-10-01 10:39 | Outpatient (AMB) | payer OTHER, SELFPAY ==
[2023-10-01 10:48] VITALS: BMI 28.0
--- NOTE | 2023-10-01 10:48 | A.OFFVIS_ITS ---
Intake Vital Signs 10/01/23 10:48 Height 5 ft 8 in Weight 184 lb BMI 28.0 Intake Visit Reasons: PO-Lt Thumb Trigger Release 09/16/23 Intake Note: Stevan 53 yr old male presents today for his PO visit for his left Thumb Trigger Release 09/16/23. States locking has subsided. Today in office while removing sutures, puss drained out of incision and patient mentioned he has had pain and discomfort the last few days. Sutures removed and steri strips applied. Allergies No Known Allergies [No Known Allergies*] Allergy (Verified 10/01/23 10:48) HPI PO-Lt Thumb Trigger Release 09/16/23 HPI Details Stevan is a 53 year old right hand dominant Fijian speaking man who returns S/P left trigger thumb release, DOS: 09/16/23. He reports having some increased pain in the last few days, and had some pus drainage when removing his sutures today in clinic. He denies any locking or catching. He says he is not working at this time. [facility] Medical History Diverticulosis of colon Diabetes type 2, uncontrolled Overweight Smoking Chronic sinusitis Hyperlipidemia LDL goal <100 Essential hypertension Controlled diabetes mellitus without complication, without long-term current use of insulin Anxiety Depression HTN (hypertension) Diabetes Surgical History Hx of colonoscopy History of nasal surgery Hx of rhinoplasty Hx of foot surgery History of cataract surgery History of appendectomy H/O elbow surgery History of repair of rotator cuff Family History Mother Diabetes Hypertension Father Medical history unknown Social History Household Members: None Housing: House Alcohol intake: never Comment: counts correct Patient Tobacco Use Status: Former Tobacco user Quit Date: 2018 Tobacco use type: Cigarette Years Smoked: 1 1/2 year ago e-Cigarette/Vaping Use: Never Used Second Hand Smoke Exposure: No service: No 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al status: unemployed and disabled 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 He had some creamy purulent discharge from his incision today when his sutures were removed. Sutures removed Mildly Tender over the incision No tenderness distally over the flexor tendon sheath He was able to actively flex and extend his thumb at the IP joint. No locking or catching Sensation is intact Cap refill is brisk Psych Appearance: grossly normal Affect: normal affect Attitude: cooperative Assessment & Plan Assessment & Plan (1) Trigger thumb, left thumb: Code(s): M65.312 - Trigger thumb, left thumb (2) Foreign body of right hand: Code(s): S60.551A - Superficial foreign body of right hand, initial encounter (3) Postoperative abscess involving suture: Code(s): T81.41XA - Infection following a procedure, superficial incisional surgical site, initial encounter (4) Polyarthralgia: Code(s): M25.50 - Pain in unspecified joint (5) Diabetes type 2, uncontrolled: Code(s): E11.65 - Type 2 diabetes mellitus with hyperglycemia Qualifiers: Glycemic state: with hyperglycemia Qualified Code(s): E11.65 - Type 2 diabetes mellitus with hyperglycemia Plan Assessment and plan: 1. Left trigger thumb, S/P release DOS: 09/16/23 2. Left thumb suture abscess I educated him about the post-operative course As he had some creamy purulent discharge today in clinic, he was placed on a 10- day course of Augmentin. If the patient develops any new or worsening erythema, drainage, pain, or warmth they should contact the clinic or attend the ED. He will perform gentle ROM exercises at home He will follow up by the end of the week for a wound check 3. Right hand foreign body/soft tissue mass excision DOS: 03/11/2023 at an outside clinic Scribed for Tata Mariscal MD by Addy Daly, certified medical biller, on 10/01/23 at 11:00 AM, EST. Medications: New amoxicillin-pot clavulanate 875-125 mg 1 tab PO Q12H 20 tabs 0RF Coding Level of Care Code Global (12922) Diagnoses Trigger thumb, left thumb M65.312 Foreign body of right hand S60.551A Postoperative abscess involving suture T81.41XA Polyarthralgia M25.50 Uncontrolled type 2 diabetes mellitus with hyperglycemia E11.65 Glycemic state: with hyperglycemia
== END 2023-10-01 11:19 | disposition home or self-care (01) ==
PROVIDERS: PCP Physician Assistant; Visit Provider Orthopaedic Surgery
DX: M65.312 Trigger thumb, left thumb (principal); S60.551A Superficial foreign body of right hand, initial encounter; T81.41XA Infection following a procedure, superficial incisional surgical site, initial encounter; M25.50 Pain in unspecified joint; E11.65 Type 2 diabetes mellitus with hyperglycemia
CPT/HCPCS: 99024

== ENCOUNTER → 2023-10-01 10:39 | Outpatient (BNVA) | payer OTHER, SELFPAY | PROVIDERS: PCP Physician Assistant; Visit Provider Orthopaedic Surgery | DX: Z47.89 Encounter for other orthopedic aftercare (principal); T81.41XD Infection following a procedure, superficial incisional surgical site, subsequent encounter; M25.50 Pain in unspecified joint; E11.65 Type 2 diabetes mellitus with hyperglycemia; Z87.39 Personal history of other diseases of the musculoskeletal system and connective tissue | CPT/HCPCS: 99212 ==

== ENCOUNTER 2023-10-03 09:07 | Outpatient (AMB) | payer OTHER, SELFPAY ==
--- NOTE | 2023-10-03 09:10 | A.OFFVIS_ITS ---
Intake Vital Signs 10/03/23 09:13 Height 5 ft 8 in Weight 184 lb BMI 28.0 Handedness Right Intake Visit Reasons: Lt Thumb Trigger Release 09/16/23 - Wound check Intake Note: Stevan is a 53 year old right hand dominant male who presents today for a wound check s/p left Thumb Trigger Release 09/16/23. Patient reports having pain and discomfort. He expresses that his wound looks open. Allergies No Known Allergies [No Known Allergies*] Allergy (Verified 10/03/23 09:13) HPI Lt Thumb Trigger Release 09/16/23 - Wound check HPI Details 53-year-old right hand dominant male, wh o is Uzbek speaking, presents in the office today for a wound check; 17 days status post left thumb trigger finger release, which was performed on 09/16/[address] Mariscal. The patient was last seen in the office on 10/01/[address] Mariscal. At that time, he was prescribed Augmentin for 10 days due to a creamy purulent discharge. While in the office today the patient reports having pain and discomfort. He is concerned that the wound looks open. Patient has a medical history of diabetes mellitus. [facility] Medical History Diverticulosis of colon Diabetes type 2, uncontrolled Overweight Smoking Chronic sinusitis Hyperlipidemia LDL goal <100 Essential hypertension Controlled diabetes mellitus without complication, without long-term current use of insulin Anxiety Depression HTN (hypertension) Diabetes Surgical History Hx of colonoscopy History of nasal surgery Hx of rhinoplasty Hx of foot surgery History of cataract surgery History of appendectomy H/O elbow surgery History of repair of rotator cuff Family History Mother Diabetes Hypertension Father Medical history unknown Social History Household Members: None Housing: House Alcohol intake: never Comment: counts correct Patient Tobacco Use Status: Former Tobacco user Quit Date: 2018 Tobacco use type: Cigarette Years Smoked: 1 1/2 year ago e-Cigarette/Vaping Use: Never Used Second Hand Smoke Exposure: No service: No 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al status: unemployed and disabled 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 Cognitive needs: No Hearing needs: No Vision needs: Yes Review of Systems Const All systems reviewed & are unremarkable except as noted in HPI and below Physical Exam Vital Signs: BMI result Body Mass Index 28.0 Const General: cooperative, healthy appearing and no acute distress Resp Effort & Inspection: normal respiratory effort and able to speak in complete sentences Cardio Rate: regular rate Peripheral pulses: Peripheral pulses 2+ throughout GI Palpation (GI): Soft to palpation Skin Lesions: no lesions Rashes: no rashes Extrem Other: Left hand: Incision site over the A1 denise of the left thumb is healing well with no erythema, drainage, or edema. He has some healthy granulation tissue filling in surrounding the incision site. He has some areas of dry skin. No active drainage. No active signs of infection. No tenderness to palpation over the incision site. Full flexion and extension at the IP joint of the thumb with no locking or catching. Sensation intact. Capillary refill is brisk. Assessment & Plan Assessment & Plan (1) Trigger thumb, left thumb: Code(s): M65.312 - Trigger thumb, left thumb (2) Foreign body of right hand: Code(s): S60.551A - Superficial foreign body of right hand, initial encounter Qualifiers: Encounter type: subsequent encounter Qualified Code(s): S60.551D - Superficial foreign body of right hand, subsequent encounter (3) Postoperative abscess involving suture: Code(s): T81.41XA - Infection following a procedure, superficial incisional surgical site, initial encounter (4) Polyarthralgia: Code(s): M25.50 - Pain in unspecified joint (5) Diabetes type 2, uncontrolled: Code(s): E11.65 - Type 2 diabetes mellitus with hyperglycemia Qualifiers: Glycemic state: with hyperglycemia Qualified Code(s): E11.65 - Type 2 diabetes mellitus with hyperglycemia Plan Mr. Reyes is a 53-year-old right hand dominant male, who is Uzbek speaking, presents in the office today for a wound check; 17 days status post left thumb trigger finger release, which was performed on 09/16/[address] Mariscal. The patient was last seen in the office on 10/01/[address] Mariscal. At that time, he was prescribed Augmentin for 10 days due to a creamy purulent discharge. While in the office today the patient reports having pain and discomfort. He is concerned that the wound looks open. Patient has a medical history of diabetes mellitus. Patient will continue his course of Augmentin 875-125 mg PO Q12H until completed. He was prescribed a 10 day course. I educated him on the importance of finishing his full course of antibiotics. He was educated on signs of infection, which are as follows, but not limited to erythema, edema, drainage, or warmth. If he is to experience any of these symptoms, he is to contact the office immediately or present to the ED. Patient demonstrates understanding. Follow up will be on 10/09/2023, or sooner if needed. Patient Instructions: Scribed by Marguerite Fernández medical coding technician, for Yaritza Tejada PA-C on 10/03/2023 at 9:10 am, EST. Coding Level of Care Code Global (20941) Diagnoses Trigger thumb, left thumb M65.312 Foreign body of right hand, subsequent encounter S60.551D Encounter type: subsequent encounter Postoperative abscess involving suture T81.41XA Polyarthralgia M25.50 Uncontrolled type 2 diabetes mellitus with hyperglycemia E11.65 Glycemic state: with hyperglycemia
[2023-10-03 09:13] VITALS: BMI 28.0
== END 2023-10-03 09:31 | disposition home or self-care (01) ==
PROVIDERS: PCP Physician Assistant; Visit Provider Physician Assistant
DX: M65.312 Trigger thumb, left thumb (principal); S60.551D Superficial foreign body of right hand, subsequent encounter; T81.41XA Infection following a procedure, superficial incisional surgical site, initial encounter; M25.50 Pain in unspecified joint; E11.65 Type 2 diabetes mellitus with hyperglycemia
CPT/HCPCS: 99024

== ENCOUNTER → 2023-10-03 09:07 | Outpatient (BNVA) | payer OTHER, SELFPAY | PROVIDERS: PCP Physician Assistant; Visit Provider Physician Assistant | DX: Z47.89 Encounter for other orthopedic aftercare (principal); T81.41XA Infection following a procedure, superficial incisional surgical site, initial encounter; M25.50 Pain in unspecified joint; E11.65 Type 2 diabetes mellitus with hyperglycemia; Z98.890 Other specified postprocedural states; Z87.39 Personal history of other diseases of the musculoskeletal system and connective tissue; Z79.2 Long term (current) use of antibiotics | CPT/HCPCS: 99212 ==

== ENCOUNTER 2023-10-09 09:07 | Outpatient (AMB) | payer OTHER, SELFPAY ==
--- NOTE | 2023-10-09 09:10 | MHC.OFFVIS ---
Intake Vital Signs 10/09/23 09:13 Height 5 ft 8 in Weight 184 lb BMI 28.0 Handedness Right Intake Visit Reasons: po-Lt Thumb Trigger Release 09/16/23 - Wound check Intake Note: Stevan is a 53 year old right hand dominant male who presents today for a wound check s/p left Thumb Trigger Release 09/16/23. Patient reports he is doing well. He expresses having some discomfort when he is moving his thumb. Allergies No Known Allergies [No Known Allergies*] Allergy (Verified 10/09/23 09:11) HPI po-Lt Thumb Trigger Release 09/16/23 - Wound check HPI Details 53-year-old right hand dominant male, who is Cymro speaking, presents in the office today for a wound check; 3 weeks status post left thumb trigger finger release, which was performed on 09/16/[address] Mariscal. I last saw the patient in the office on 10/03/2023 when he was instructed to continue his course of Augmentin 875-125 mg PO Q12H, until completed. While in the office today the patient reports he is doing well. He reports some discomfort when moving the left thumb. [facility] Medical History Diverticulosis of colon Diabetes type 2, uncontrolled Overweight Smoking Chronic sinusitis Hyperlipidemia LDL goal <100 Essential hypertension Controlled diabetes mellitus without complication, without long-term current use of insulin Anxiety Depression HTN (hypertension) Diabetes Surgical History Hx of colonoscopy History of nasal surgery Hx of rhinoplasty Hx of foot surgery History of cataract surgery History of appendectomy H/O elbow surgery History of repair of rotator cuff Family History Mother Diabetes Hypertension Father Medical history unknown Social History Household Members: None Housing: House Alcohol intake: never Comment: counts correct Patient Tobacco Use Status: Former Tobacco user Quit Date: 2018 Tobacco use type: Cigarette Years Smoked: 1 1/2 year ago e-Cigarette/Vaping Use: Never Used Second Hand Smoke Exposure: No service: No 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al status: unemployed and disabled 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 Cognitive needs: No Hearing needs: No Vision needs: Yes Review of Systems Const All systems reviewed & are unremarkable except as noted in HPI and below Physical Exam Vital Signs: BMI result Body Mass Index 28.0 Const General: cooperative, healthy appearing and no acute distress Resp Effort & Inspection: normal respiratory effort and able to speak in complete sentences Cardio Rate: regular rate Peripheral pulses: Peripheral pulses 2+ throughout GI Palpation (GI): Soft to palpation Skin Lesions: no lesions Rashes: no rashes Extrem Other: Left hand: Incision site over the A1 denise of the left thumb is healing well with no erythema, drainage, or edema. He has some healthy eschar tissue filling in surrounding the incision site. He areas of dry skin. No active drainage. No active signs of infection. No tenderness to palpation over the incision site. Full flexion and extension at the IP joint of the thumb with no locking or catching. Sensation intact. Capillary refill is brisk. Assessment & Plan Assessment & Plan (1) Trigger thumb, left thumb: Code(s): M65.312 - Trigger thumb, left thumb (2) Foreign body of right hand: Code(s): S60.551A - Superficial foreign body of right hand, initial encounter Qualifiers: Encounter type: subsequent encounter Qualified Code(s): S60.551D - Superficial foreign body of right hand, subsequent encounter (3) Postoperative abscess involving suture: Code(s): T81.41XA - Infection following a procedure, superficial incisional surgical site, initial encounter (4) Polyarthralgia: Code(s): M25.50 - Pain in unspecified joint (5) Diabetes type 2, uncontrolled: Code(s): E11.65 - Type 2 diabetes mellitus with hyperglycemia Qualifiers: Glycemic state: with hyperglycemia Qualified Code(s): E11.65 - Type 2 diabetes mellitus with hyperglycemia Plan Mr. Reyes is a 53-year-old right hand dominant male, who is Cymro speaking, presents in the office today for a wound check; 17 days status post left thumb trigger finger release, which was performed on 09/16/[address] Mariscal. The patient was last seen in the office on 10/01/[address] Mariscal. At that time, he was prescribed Augmentin for 10 days due to a creamy purulent discharge. While in the office today the patient reports having pain and discomfort. He is concerned that the wound looks open. Patient has a medical history of diabetes mellitus. Patient will continue his course of Augmentin 875-125 mg PO Q12H until completed. He was prescribed a 10 day course. I educated him on the importance of finishing his full course of antibiotics. He was educated on signs of infection, which are as follows, but not limited to erythema, edema, drainage, or warmth. If he is to experience any of these symptoms, he is to contact the office immediately or present to the ED. Patient demonstrates understanding. His incision site is healing well and will f/u prn, sooner if needed. Patient Instructions: Scribed by Marguerite Fernández biomedical electronics technician, for Yaritza Tejada PA-C on 10/08/2023 at 9:11 am, EST. Coding Level of Care Code Global (64069) Diagnoses Trigger thumb, left thumb M65.312 Foreign body of right hand, subsequent encounter S60.551D Encounter type: subsequent encounter Postoperative abscess involving suture T81.41XA Polyarthralgia M25.50 Uncontrolled type 2 diabetes mellitus with hyperglycemia E11.65 Glycemic state: with hyperglycemia
[2023-10-09 09:13] VITALS: BMI 28.0
== END 2023-10-09 09:20 | disposition home or self-care (01) ==
PROVIDERS: PCP Physician Assistant; Visit Provider Physician Assistant
DX: M65.312 Trigger thumb, left thumb (principal); S60.551D Superficial foreign body of right hand, subsequent encounter; T81.41XA Infection following a procedure, superficial incisional surgical site, initial encounter; M25.50 Pain in unspecified joint; E11.65 Type 2 diabetes mellitus with hyperglycemia
CPT/HCPCS: 99024

== ENCOUNTER → 2023-10-09 09:07 | Outpatient (BNVA) | payer OTHER, SELFPAY | PROVIDERS: PCP Physician Assistant; Visit Provider Physician Assistant | DX: Z47.89 Encounter for other orthopedic aftercare (principal); T81.41XD Infection following a procedure, superficial incisional surgical site, subsequent encounter; M25.50 Pain in unspecified joint; E11.65 Type 2 diabetes mellitus with hyperglycemia; Z98.890 Other specified postprocedural states; Z79.2 Long term (current) use of antibiotics | CPT/HCPCS: 99212 ==

== ENCOUNTER 2023-10-10 10:53 | Outpatient (AMB) | payer OTHER, SELFPAY ==
[2023-10-10 11:05] VITALS: BP 112/70; PULSE 77; O2SAT 96; BMI 28.1
--- NOTE | 2023-10-10 11:05 | A.OFFPC_ITS ---
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 Accompanied by: Self / Same As Patient Allergies No Known Allergies [No Known Allergies*] Allergy (Verified 10/10/23 11:24) Medication List - Last Reconciled 10/10/23 by Juni Ro PA-C atorvastatin 40 mg PO DAILY 90 days blood sugar diagnostic (FreeStyle Lite Strips) BID - TID blood-glucose meter (FreeStyle [place] Lite kit) As directed dulaglutide (Trulicity) 0.75 mg (0.5 mL) subcut QWEEK empagliflozin (Jardiance) 25 mg PO QAM fluticasone propionate 50 mcg/actuation 1 spray intranasal DAILY gabapentin 300 mg PO BID 30 days hydroxyzine HCl 50 mg PO BEDTIME 30 days ipratropium bromide 2 sprays intranasal BID lisinopril 10 mg PO DAILY 90 days meloxicam 15 mg PO DAILY PRN metformin ER 1,000 mg (2 x 500 mg) PO BID methocarbamol 750 mg PO TID PRN 30 days methylcellulose (laxative) (Citrucel) 500 mg PO TID montelukast 10 mg PO DAILY 90 days pantoprazole 40 mg PO DAILY 90 days repaglinide 1-2 tabs PO 3 times a day; administer within 15 minutes of a meal or snack tadalafil 20 mg PO ONCE PRN 30 days tramadol 50 mg PO Q8H PRN 7 days Tobacco use date assessed: 07/03/23 Dental Screening Dental Screen Date: 07/03/23 HPI Medication F/U HPI Details Patient is a 53 year-old male here today for follow-up visit. ? significant for HTN, DMII, HLD, ED, VALLES, ? Chronic lumbar spine pain,chronic left foot navicular fx. ? .. Lumbar disc disease: reports continues to have lower back pain , worse with long periods of sitting and standing. Has seen [place] pain management in the past and was given gabapentin which was not effective in reducing his pain. 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 He has a reestablish care with pain management and has upcoming appointment with Rheumatology as well. .. Bilateral hand arthritis : Does have trigger thumb. Has underwent left trigger thumb release procedure that was complicated by soft tissue infection. Treated with antibiotic and doing well. Unfortunately reports his trigger thumb is still present. Has already done occupational therapy. .. ? HTN: ? He reports blood pressures when taken at home have been stable. ? patient denies any shortness of breath, chest discomfort or headaches. Continues on? Lisinopril 10 mg. ? .. ? DMII:? Reports he has been tring to follow a DM diet. Seeing DM Educator/ personal security specialist. . continues on metformin, Jardiance and Trulicity.? Today's A1c at 7.7 from 7.4. He reports some dietary indiscretion over the last few months. Will restart using repaglindine with large meals for better glycemic control PFSH Medical History Diverticulosis of colon Diabetes type 2, uncontrolled Overweight Smoking Chronic sinusitis Hyperlipidemia LDL goal <100 Essential hypertension Controlled diabetes mellitus without complication, without long-term current use of insulin Anxiety Depression HTN (hypertension) Diabetes Surgical History Hx of colonoscopy History of nasal surgery Hx of rhinoplasty Hx of foot surgery History of cataract surgery History of appendectomy H/O elbow surgery History of repair of rotator cuff Family History Mother Diabetes Hypertension Father Medical history unknown Social History Household Members: None Housing: House Alcohol intake: never Comment: counts correct Patient Tobacco Use Status: Former Tobacco user Quit Date: 2018 Tobacco use type: Cigarette Years Smoked: 1 1/2 year ago e-Cigarette/Vaping Use: Never Used Second Hand Smoke Exposure: No service: No 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al status: unemployed and disabled 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 Rasheed Pena, Fanta Dutton, Garcia cox nd colleagues, with an educational jerrod from [email or web address]. Review of Systems Const Denies headache(s) Eyes Denies loss of vision ENT Denies vertigo, Denies dizziness, Denies headache(s) and Denies sore throat Card Denies chest pain, Denies leg edema and Denies lightheadedness Resp Denies cough, Denies hemoptysis and Denies wheezing GI Denies abdominal pain, Denies melena, Denies constipation, Denies diarrhea and Denies vomiting Denies dysuria, Denies urinary frequency and Denies urinary urgency Musc Denies arthralgias, Denies joint swelling, Denies numbness and Denies tingling Neuro Denies Abnormal speech present, Denies behavioral changes, Denies vertigo, Denies dizziness, Denies headache(s), Denies loss of vision, Denies memory loss, Denies numbness and Denies tingling Psych Denies anxiety, Denies behavioral changes, Denies depression, Denies memory loss and Denies panic attacks Deshawn/Lymph Denies easy bleeding and Denies easy bruising Aller/Immun Denies wheezing Physical exam (Primary Care) Vital Signs: Last Vital Signs Pulse 77 10/10/23 11:05 BP 112/70 10/10/23 11:05 Pulse Ox 96 10/10/23 11:05 Oxygen Delivery Method Room Air 10/10/23 11:05 BMI result Body Mass Index 28.1 Tobacco/Smoking Status: Tobacco use Status Tobacco use date assessed 07/03/23 10/10/23 11:06 Patient Tobacco Use Status Former Tobacco user 10/10/23 11:06 Tobacco use type Cigarette 10/10/23 11:06 e-Cigarette/Vaping Use Never Used 10/10/23 11:06 Thrive Assessment: Date of Thrive Assessment Date Thrive assessed 07/03/23 10/10/23 11:06 Const General: healthy appearing, no acute distress, alert and awake Nutritional Appearance: well nourished Orientation/consciousness: oriented to person, oriented to place and oriented to time HENMT Ears: TM's normal bilaterally General nose exam: Normal nasal mucous membranes and turbinates present Eyes Conjunctivae: conjunctivae normal Sclerae: sclerae normal Pupils: Equal, round and reactive pupils present Neck Neck: Yes no lymphadenopathy and Yes no JVD Thyroid: Thyroid normal Carotids: no bruits Resp Effort & Inspection: normal respiratory effort and not tachypneic Auscultation: no crackles, no rales, no rhonchi and no wheezes Cardio Rate: regular rate Rhythm: regular rhythm Heart sounds: no murmurs and normal S1 and S2 GI Palpation (GI): Soft to palpation, nontender, no hepatomegaly and no splenomegaly Auscultation: normal bowel sounds Skin General skin exam: no rashes or lesions noted and dry skin Neuro General: oriented to person, oriented to place and oriented to time Cranial nerves: Yes Equal, round and reactive pupils present Speech: No Abnormal speech present Gait exam (Neuro): Normal gait present Motor exam (neuro): no tremor noted Extrem Right upper extremity: full ROM Left upper extremity: full ROM Right lower extremity: full ROM; no edema Left lower extremity: full ROM; no edema Psych Mental Status: mental status grossly normal Speech and movement: Normal speech and movement present Affect: normal affect Attitude: cooperative Thought process: Normal thought process present Results AMB Hemoglobin A1c AMB Hemoglobin A1c 7.7 % Last Edit by NIKKI Bruce on 10/10/23 11:27 Results Reviewed Results Reviewed: Laboratory Last Values Hgb A1c (Clinic) 7.7 % (4.0-6.0) H 10/10/23 11:17 Assessment and Plan Assessment & Plan (1) Diabetes type 2, uncontrolled: Code(s): E11.65 - Type 2 diabetes mellitus with hyperglycemia Qualifiers: Glycemic state: with hyperglycemia Qualified Code(s): E11.65 - Type 2 diabetes mellitus with hyperglycemia Plan: Patient's type 2 diabetes suboptimally controlled today's A1c at 7.7 , he reports some dietary indiscretion. Will return back to using repaglinide with largest meals of the day for better glycemic control . Has been working on dietary changes. Continues to follow a personal security specialist. Continues on Trulicity 0.75 and metformin. He will work extensively on lifestyle modifications to reduce his carbohy drates in his diet. Goal A1c is to be below 7.0 (2) Essential hypertension: Code(s): I10 - Essential (primary) hypertension Plan: Patient's blood pressure acceptable today in office. Will continue current dose of antihypertensive medication with goal blood pressure be below 140/90 (3) Hyperlipidemia LDL goal <100: Code(s): E78.5 - Hyperlipidemia, unspecified Plan: Patient's cholesterol has been stable with current statin potency. Goal LDL to be below 100 (4) Degenerative disc disease at L5-S1 level: Code(s): M51.37 - Other intervertebral disc degeneration, lumbosacral region Plan: Was followed by [place] pain management. He has gotten lumbar injections though felt there were not effective. He will reach back out to Pain Management about further pain reduction modalities. (5) Trigger thumb, left thumb: Code(s): M65.312 - Trigger thumb, left thumb Plan: He underwent left trigger thumb release surgery. He reports he still has catching of his left thumb. Has already done occupational therapy. Orders: Orders Comprehensive [place]. Panel Fast Today E11.65 - Type 2 diabetes mellitus with hyperglycemia Hemoglobin A1c Today E11.65 - Type 2 diabetes mellitus with hyperglycemia AMB Hemoglobin A1c Today E11.65 - Type 2 diabetes mellitus with hyperglycemia Complete Blood Count no Diff Today E11.65 - Type 2 diabetes mellitus with hyperglycemia Lipid Panel Today E11.65 - Type 2 diabetes mellitus with hyperglycemia Medications: Refilled hydroxyzine HCl 50 mg PO BEDTIME 30 tabs 4RF 30 days F41.9 - Anxiety disorder, unspecified repaglinide 1-2 tabs PO 3 times a day; administer within 15 minutes of a meal or snack 150 tabs 3RF fluticasone propionate 50 mcg/actuation 1 spray intranasal DAILY 16 grams 3RF Patient Instructions: Goals: Control type 2 diabetes, A1c to be below 7.0 Barriers: Medication compliance and dietary compliance Coding Level of Care Code Est Pt Level 4 (68723) Diagnoses Uncontrolled type 2 diabetes mellitus with hyperglycemia E11.65 Glycemic state: with hyperglycemia Essential hypertension I10 Hyperlipidemia LDL goal <100 E78.5 Degenerative disc disease at L5-S1 level M51.37 Trigger thumb, left thumb M65.312
== END 2023-10-10 11:44 | disposition home or self-care (01) ==
PROVIDERS: PCP Physician Assistant; Visit Provider Physician Assistant
DX: E11.65 Type 2 diabetes mellitus with hyperglycemia (principal); I10 Essential (primary) hypertension; E78.5 Hyperlipidemia, unspecified; M51.37 Other intervertebral disc degeneration, lumbosacral region; M65.312 Trigger thumb, left thumb
CPT/HCPCS: 83036; 99214

== ENCOUNTER 2023-10-21 13:26 | Outpatient (AMB) | payer OTHER, SELFPAY ==
--- NOTE | 2023-10-21 13:35 | MHC.OFFVIS ---
Vital Signs 10/21/23 13:36 Height 5 ft 8 in Weight 190 lb 7.67 oz BMI 29.0 BP 124/60 Blood Pressure Location Rt brachial Position Sitting Pulse 72 Pulse Source Pulse Oximeter Pulse Oximetry (%) 97 Oxygen Delivery Method Room Air Intake Visit Reasons: hand OA Intake Note: Patient last seen 10/18/22 presents today for 1 year follow up. Reports pain in L thumb. 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 Required: No Accompanied by: Self / Same As Patient Allergies No Known Allergies [No Known Allergies*] Allergy (Verified 10/21/23 13:38) Medication List - Last Reconciled 10/21/23 by Nieves Currie MD atorvastatin 40 mg PO DAILY 90 days blood sugar diagnostic (FreeStyle Lite Strips) BID - TID blood-glucose meter (FreeStyle [place] Lite kit) As directed dulaglutide (Trulicity) 0.75 mg (0.5 mL) subcut QWEEK empagliflozin (Jardiance) 25 mg PO QAM fluticasone propionate 50 mcg/actuation 1 spray intranasal DAILY gabapentin 300 mg PO BID 30 days hydroxyzine HCl 50 mg PO BEDTIME 30 days ipratropium bromide 2 sprays intranasal BID lisinopril 10 mg PO DAILY 90 days meloxicam 15 mg PO DAILY PRN metformin ER 1,000 mg (2 x 500 mg) PO BID methocarbamol 750 mg PO TID PRN 30 days methylcellulose (laxative) (Citrucel) 500 mg PO TID montelukast 10 mg PO DAILY 90 days pantoprazole 40 mg PO DAILY 90 days repaglinide 1-2 tabs PO 3 times a day; administer within 15 minutes of a meal or snack tadalafil 20 mg PO ONCE PRN 30 days HPI Comments Details: 53-year-old male with bilateral hand OA returns for follow-up. 02/2023 he was evaluated at an outside facility and foreign body was removed from his right 2nd MCP. States that the procedure did not help him much. He continues to have pain and stiffness in that area. Difficulty making a full fist. He had left thumb trigger finger release by Dr. Mariscal a month ago. On postop follow-up there was some creamy discharge suggestive of infection and he was started on Augmentin which she completed. States that the swelling has improved but continues to have some swelling in the area. Initial history: 52-year-old male is referred for evaluation of bilateral hand pain. Patient states that he has had bilateral hand arthritis for years. He had left thumb triggering and had a steroid injection done by hand surgeon last month without much relief. He states that he believes he has a pencil tip lodged in his right 2nd MCP that is causing him pain and swelling. He was evaluated by hand surgery and the plan is to take him to the OR for removal of the foreign body in the right 2nd MCP and consideration of left thumb flexor tendon release once his A1c is less than 8% Patient continues to have pain in his right 2nd MCP and difficulty making a full fist. Continues to have triggering of his left thumb. Has generalized morning stiffness of his body in the morning, morning stiffness of his hands lasts 5 minutes. Used Tylenol Arthritis for some time without much relief. He also takes meloxicam about once a week usually for foot pain. Voltaren gel was not very helpful. 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 [facility] Medical History Diverticulosis of colon Diabetes type 2, uncontrolled Overweight Smoking Chronic sinusitis Hyperlipidemia LDL goal <100 Essential hypertension Controlled diabetes mellitus without complication, without long-term current use of insulin Anxiety Depression HTN (hypertension) Diabetes Surgical History Hx of colonoscopy History of nasal surgery Hx of rhinoplasty Hx of foot surgery History of cataract surgery History of appendectomy H/O elbow surgery History of repair of rotator cuff Family History Mother Diabetes Hypertension Father Medical history unknown Social History Household Members: None Housing: House Alcohol intake: never Comment: counts correct Patient Tobacco Use Status: Former Tobacco user Quit Date: 2018 Tobacco use type: Cigarette Years Smoked: 1 1/2 year ago e-Cigarette/Vaping Use: Never Used Second Hand Smoke Exposure: No service: No 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al status: unemployed and disabled 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 Cognitive needs: No Hearing needs: No Vision needs: Yes Review of Systems Musc Reports arthralgias and Reports stiffness Physical Exam Vital Signs: Last Vital Signs Pulse 72 10/21/23 13:36 BP 124/60 10/21/23 13:36 Pulse Ox 97 10/21/23 13:36 Oxygen Delivery Method Room Air 10/21/23 13:36 BMI result Body Mass Index 29.0 Const General: cooperative, healthy appearing and comfortable Nutritional Appearance: overweight Orientation/consciousness: patient oriented x3 Limitations: no limitations HEENT Head: Yes normocephalic and Yes atraumatic Resp Effort & Inspection: normal respiratory effort and able to speak in complete sentences Neuro General: patient oriented x3 Extrem Other: Osteoarthritic changes of both hands with prominent Heberden's and Nona's nodes. Mild enlargement of his MCPs bilaterally Right 2nd MCP tenderness and inability to make full flexion with right index Minimal swelling left thenar area Assessment & Plan Assessment & Plan (1) Osteoarthritis of hands, bilateral: Code(s): M19.041 - Primary osteoarthritis, right hand; M19.042 - Primary osteoarthritis, left hand Category: Medical Qualifiers: Osteoarthritis type: primary Qualified Code(s): M19.041 - Primary osteoarthritis, right hand; M19.042 - Primary osteoarthritis, left hand Plan: This is a 53-year-old male who presents for evaluation of bilateral hand osteoarthritis. He is s/p right 2nd MCP foreign body removal. Continues to have stiffness in that joint. The procedure did not help him much. He is also s/p left thumb trigger finger release by Dr. Mariscal. Patient has completed occupational therapy and has used Voltaren gel. Does not believe anything helps. Unfortunately I do not have any further suggestions to help bilateral hand osteoarthritis. Follow-up with other providers. Plan I spent 17 minutes reviewing patient's chart, evaluating patient, counseling patient and documenting in the chart Coding Level of Care Code Est Pt Level 3 (61334) Diagnoses Primary osteoarthritis of both hands M19.041; M19.042 Osteoarthritis type: primary
[2023-10-21 13:36] VITALS: BP 124/60; PULSE 72; O2SAT 97; BMI 29.0
== END 2023-10-21 14:10 | disposition home or self-care (01) ==
LOC: HO.RHE 13:26
PROVIDERS: PCP Physician Assistant; Visit Provider Student in an Organized Health Care Education/Training Program
DX: M19.041 Primary osteoarthritis, right hand (principal); M19.042 Primary osteoarthritis, left hand
CPT/HCPCS: 99213

== ENCOUNTER → 2023-10-21 13:26 | Outpatient (BNVA) | payer OTHER, SELFPAY | PROVIDERS: PCP Physician Assistant; Visit Provider Student in an Organized Health Care Education/Training Program | DX: M19.041 Primary osteoarthritis, right hand (principal); M19.042 Primary osteoarthritis, left hand; E11.65 Type 2 diabetes mellitus with hyperglycemia; T81.41XA Infection following a procedure, superficial incisional surgical site, initial encounter; M25.50 Pain in unspecified joint; Z47.89 Encounter for other orthopedic aftercare; Z87.39 Personal history of other diseases of the musculoskeletal system and connective tissue | CPT/HCPCS: 99212 ==

== ENCOUNTER 2023-10-21 14:08 | Outpatient (AMB) | payer OTHER, SELFPAY ==
--- NOTE | 2023-10-21 14:11 | A.OFFVIS_ITS ---
Intake Visit Reasons: po-Lt Thumb Trigger Release 09/16/23 - Wound check Intake Note: Stevan is a 53 year old male who presents today for a wound check s/p left thumb trigger release 09/16/23. Patient reports he noticed his left thumb swollen and red for the past 3 days. He states that is causing him a lot of agatha n. Allergies No Known Allergies [No Known Allergies*] Allergy (Verified 10/21/23 14:13) HPI HPI po-Lt Thumb Trigger Release 09/16/23 - Wound check: Details: 53-year-old male, who is Belgian speaking, presents in the office today for a wound check; 1 month status post left thumb trigger finger release, which was performed on 09/16/[address] Mariscal. I last saw the patient in the office on 10/09/2023 when he was to continue the use of Augmentin 875-125 mg PO Q12H. While in the office today the patient reports having edema and erythema at the left thumb trigger finger incision site for the past 3 days. He reports this to be causing him a lot of pain. PFSH Medical History Diverticulosis of colon Diabetes type 2, uncontrolled Overweight Smoking Chronic sinusitis Hyperlipidemia LDL goal <100 Essential hypertension Controlled diabetes mellitus without complication, without long-term current use of insulin Anxiety Depression HTN (hypertension) Diabetes Surgical History Hx of colonoscopy History of nasal surgery Hx of rhinoplasty Hx of foot surgery History of cataract surgery History of appendectomy H/O elbow surgery History of repair of rotator cuff Family History Mother Diabetes Hypertension Father Medical history unknown Social History Household Members: None Housing: House Alcohol intake: never Comment: counts correct Patient Tobacco Use Status: Former Tobacco user Quit Date: 2018 Tobacco use type: Cigarette Years Smoked: 1 1/2 year ago e-Cigarette/Vaping Use: Never Used Second Hand Smoke Exposure: No service: No 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al status: unemployed and disabled 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 Cognitive needs: No Hearing needs: No Vision needs: Yes Review of Systems Const All systems reviewed & are unremarkable except as noted in HPI and below Physical Exam Const General: cooperative, healthy appearing and no acute distress Resp Effort & Inspection: normal respiratory effort and able to speak in complete sentences Cardio Rate: regular rate Peripheral pulses: Peripheral pulses 2+ throughout GI Palpation (GI): Soft to palpation Skin Lesions: no lesions Rashes: no rashes Extrem Other: Left thumb: Mild erythema roughly a half dollar size around the incision site at the base of the thumb, at the A1 denise. No active drainage. Slight tenderness to palpation around the prior incision site as well as some dry skin. No open areas at this time. Able to perform full ROM of the thumb, as well as the other digits. Sensation intact. Capillary refill is brisk. Assessment & Plan Assessment & Plan (1) Trigger thumb, left thumb: Code(s): M65.312 - Trigger thumb, left thumb Category: Medical (2) Postoperative abscess involving suture: Code(s): T81.41XA - Infection following a procedure, superficial incisional surgical site, initial encounter Category: Medical (3) Polyarthralgia: Code(s): M25.50 - Pain in unspecified joint Category: Medical (4) Diabetes type 2, uncontrolled: Code(s): E11.65 - Type 2 diabetes mellitus with hyperglycemia Category: Medical Qualifiers: Glycemic state: with hyperglycemia Qualified Code(s): E11.65 - Type 2 diabetes mellitus with hyperglycemia Plan Mr. Reyes is a 53-year-old male, who is Belgian speaking, presents in the office today for a wound check; 1 month status post left thumb trigger finger release, which was performed on 09/16/[address] Mariscal. I last saw the patient in the office on 10/09/2023 when he was to continue the use of Augmentin 875-125 mg PO Q12H. While in the office today the patient reports having edema and erythema at the left thumb trigger finger incision site for the past 3 days. He reports this to be causing him a lot of pain. Out of an abundance of caution I will send a prescription for Augmentin 875-125 mg PO BID to the pharmacy for 7 days. I would like to see him in one week for wound check. He was educated on signs of infection, which are as follows but not limited to erythema, edema, drainage, or warmth. If he is to experience any of these symptoms, he must contact the office immediately or present to the ED. Follow up will be on Saturday10/29/[address] Mariscal in the office. Medications: New amoxicillin-pot clavulanate 875-125 mg 1 tab PO BID 20 tabs 0RF Patient Instructions: Scribed by Marguerite Fernández medical secretary, for Yaritzakenny Tejada PA-C on 10/21/2023 at 2:18 pm, EST. Coding Level of Care Code Global (69785) Diagnoses Trigger thumb, left thumb M65.312 Postoperative abscess involving suture T81.41XA Polyarthralgia M25.50 Uncontrolled type 2 diabetes mellitus with hyperglycemia E11.65 Glycemic state: with hyperglycemia
== END 2023-10-21 15:43 | disposition home or self-care (01) ==
LOC: HO.HOS 14:08
PROVIDERS: PCP Physician Assistant; Visit Provider Physician Assistant
DX: M65.312 Trigger thumb, left thumb (principal); T81.41XA Infection following a procedure, superficial incisional surgical site, initial encounter; M25.50 Pain in unspecified joint; E11.65 Type 2 diabetes mellitus with hyperglycemia
CPT/HCPCS: 99024

== ENCOUNTER 2023-10-29 10:21 | Outpatient (AMB) | payer OTHER, SELFPAY ==
[2023-10-29 10:22] VITALS: BMI 29.0
--- NOTE | 2023-10-29 10:22 | A.OFFVIS_ITS ---
Vital Signs 10/29/23 10:22 Height 5 ft 8 in Weight 190 lb 7 oz BMI 29.0 Intake Visit Reasons: po-Lt Thumb Trigger Release 09/16/23 - Wound check Intake Note: Stevan, 53 yo male, right hand dominant, presents today for post op on left thumb trigger release, 09/16/23. Patient reports minimal pain. He is not taking anything for pain. Denies redness, warmth to touch, fevers, or chills. Sharepoint Admin Required: No Accompanied by: Self / Same As Patient Allergies No Known Allergies [No Known Allergies*] Allergy (Verified 10/29/23 10:23) HPI HPI po-Lt Thumb Trigger Release 09/16/23 - Wound check: Details: 53-year-old right hand dominant male, who is [place] speaking, presents in the office today for a wound check; 6 weeks status post left thumb trigger finger release, which was performed on 09/16/[address] Mariscal. I last saw the patient in the office on 10/21/2023 when he was prescribed Augmentin 875-125 mg PO BID out of an abundance of caution. While in the office today the patient reports minimal pain. He denies taking anything for pain. He also denies erythema, warmth, fevers, or chills. PFSH Medical History Diverticulosis of colon Diabetes type 2, uncontrolled Overweight Smoking Chronic sinusitis Hyperlipidemia LDL goal <100 Essential hypertension Controlled diabetes mellitus without complication, without long-term current use of insulin Anxiety Depression HTN (hypertension) Diabetes Surgical History Hx of colonoscopy History of nasal surgery Hx of rhinoplasty Hx of foot surgery History of cataract surgery History of appendectomy H/O elbow surgery History of repair of rotator cuff Family History Mother Diabetes Hypertension Father Medical history unknown Social History Household Members: None Housing: House Alcohol intake: never Comment: counts correct Patient Tobacco Use Status: Former Tobacco user Quit Date: 2018 Tobacco use type: Cigarette Years Smoked: 1 1/2 year ago e-Cigarette/Vaping Use: Never Used Second Hand Smoke Exposure: No service: No 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al status: unemployed and disabled 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 Cognitive needs: No Hearing needs: No Vision needs: Yes Review of Systems Const All systems reviewed & are unremarkable except as noted in HPI and below Physical Exam Vital Signs: BMI result Body Mass Index 29.0 Const General: cooperative, healthy appearing and no acute distress Resp Effort & Inspection: normal respiratory effort and able to speak in complete sentences Cardio Rate: regular rate Peripheral pulses: Peripheral pulses 2+ throughout GI Palpation (GI): Soft to palpation Skin Lesions: no lesions Rashes: no rashes Extrem Other: Left thumb: Resolved erythema around the incision site at the base of the thumb, at the A1 denise. No active drainage. No tenderness to palpation around the p rior incision site as well as some dry skin. No open areas at this time. Able to perform full ROM of the thumb, as well as the other digits. Sensation intact. Capillary refill is brisk. Assessment & Plan Assessment & Plan (1) Trigger thumb, left thumb: Code(s): M65.312 - Trigger thumb, left thumb Category: Medical (2) Postoperative abscess involving suture: Code(s): T81.41XA - Infection following a procedure, superficial incisional surgical site, initial encounter Category: Medical (3) Polyarthralgia: Code(s): M25.50 - Pain in unspecified joint Category: Medical (4) Diabetes type 2, uncontrolled: Code(s): E11.65 - Type 2 diabetes mellitus with hyperglycemia Category: Medical Qualifiers: Glycemic state: with hyperglycemia Qualified Code(s): E11.65 - Type 2 diabetes mellitus with hyperglycemia Plan Mr. Reyes is a 53-year-old right hand dominant male, who is [place] speaking, presents in the office today for a wound check; 6 weeks status post left thumb trigger finger release, which was performed on 09/16/[address] Mariscal. I last saw the patient in the office on 10/21/2023 when he was prescribed Augmentin 875-125 mg PO BID out of an abundance of caution. While in the office today the patient reports minimal pain. He denies taking anything for pain. He also denies erythema, warmth, fevers, or chills. The patient will continue to take his course of antibiotics until his course is complete. He was educated on signs of infection, which are as follows but not limited to erythema, edema, drainage, or warmth. If he is to experience any of these symptoms, he must contact the office immediately or present to the ED. Follow up will be PRN, or sooner if needed. Patient Instructions: Scribed by Marguerite Fernández medical collections representative, for Yaritza Tejada PA-C on 10/29/2023 at 10:24 am, EST. Coding Level of Care Code Global (78782) Diagnoses Trigger thumb, left thumb M65.312 Postoperative abscess involving suture T81.41XA Polyarthralgia M25.50 Uncontrolled type 2 diabetes mellitus with hyperglycemia E11.65 Glycemic state: with hyperglycemia
== END 2023-10-29 10:52 | disposition home or self-care (01) ==
PROVIDERS: PCP Physician Assistant; Visit Provider Physician Assistant
DX: M65.312 Trigger thumb, left thumb (principal); T81.41XA Infection following a procedure, superficial incisional surgical site, initial encounter; M25.50 Pain in unspecified joint; E11.65 Type 2 diabetes mellitus with hyperglycemia
CPT/HCPCS: 99024

== ENCOUNTER → 2023-10-29 10:21 | Outpatient (BNVA) | payer OTHER, SELFPAY | PROVIDERS: PCP Physician Assistant; Visit Provider Physician Assistant | DX: T81.41XD Infection following a procedure, superficial incisional surgical site, subsequent encounter (principal); E11.65 Type 2 diabetes mellitus with hyperglycemia | CPT/HCPCS: 99212 ==

== ENCOUNTER 2024-07-23 08:52 | Outpatient (AMB) | payer OTHER, SELFPAY ==
--- NOTE | 2024-07-23 08:53 | A.OFFVIS_ITS ---
Intake Visit Reasons: 1Y Follow Up(Erectile Dys) Intake Note: Patient is present for 1y Follow Up (erecyilt dys) Urology Med: Tadalafil Antibiotic Allergy: None Blood Thinner: none Student Success Coach Required: No Accompanied by: Self / Same As Patient Allergies No Known Allergies [No Known Allergies*] Allergy (Verified 07/23/24 08:53) HPI Comments Details: Stevan is a Estonian-speaking male. He is a patient of Dr. Ro. He is seen for the following urologic conditions. - erectile dysfunction in setting of diabetes Telemedicine Evaluation 15 min Consultation Vericept Kg Video Yearly follow-up 10 mg - 3 times a week baseline tadalafil, 20 mg on demand Has not been using baseline tadalafil Prescriptions provided for 10 mg daily +20 mg on demand Follow-up six-month Erectile dysfunction: In setting of diabetes on Trulicity, Jardiance, metformin Using 10 mg Cialis 3 times per week Has relatively good success Would like to increase at time of activity 20 mg on demand prescription provided to add to baseline PSA 06/14 0.6, 11/13 .6 He presents today for further evaluation of erectile dysfunction. Symptoms have been present for/since Several years. Current treatment includes Viagra/sildenafil - short trial minimal impact. Prior therapies include oral medications. At this time he experiences erections are partial and adequate for vaginal penetration, that undergo rapid detumesence after penetration, LINDA 8-11 Moderate ED. Nocturnal erections do occur. Currently they are in a stable relationship. Associated problems hypertension Yes diabetes Yes dyslipidemia Yes Overall he is is not satisfied with the current management. Therapeutic plan includes increasing dose of oral medication PFSH Medical History Diverticulosis of colon Diabetes type 2, uncontrolled Overweight Smoking Chronic sinusitis Hyperlipidemia LDL goal <100 Essential hypertension Controlled diabetes mellitus without complication, without long-term current use of insulin Anxiety Depression HTN (hypertension) Diabetes Surgical History Hx of colonoscopy History of nasal surgery Hx of rhinoplasty Hx of foot surgery History of cataract surgery History of appendectomy H/O elbow surgery History of repair of rotator cuff Family History Mother Diabetes Hypertension Father Medical history unknown Social History Household Members: None Housing: House Alcohol intake: never Comment: counts correct Patient Tobacco Use Status: Former Tobacco user Tobacco use type: Cigarette Years Smoked: 1 1/2 year ago e-Cigarette/Vaping Use: Never Used Second Hand Smoke Exposure: No service: No 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al status: unemployed and disabled 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 Cognitive needs: No Hearing needs: No Vision needs: Yes Review of Systems Const All systems reviewed & are unremarkable except as noted in HPI and below Reports no additional complaints Resp Reports no additional complaints GI Reports no additional complaints Reports as per HPI Musc Reports no additional complaints Physical Exam Telemedicine evaluation Appropriate responses Regular breathing rate and rhythm HEENT Head: Yes normal to inspection Ears: hearing grossly normal bilaterally Eyes General: appearance normal, both eyes and all related structures Neck Neck: Yes normal visual inspection Chest Chest palpation & inspection: normal inspection of the chest Resp Effort & Inspection: normal respiratory effort and able to speak in complete sentences Telehealth Telehealth Telehealth Platform: Vericept Location of provider rendering services: practice address Location of patient: address on file Patient Identification confirmed using: Name, : Yes Telehealth method: video Patient verbally consented to treatment: Yes Patient verbally consented to billing insurance company: Yes Patient informed of any privacy concerns related to visit: Yes Minutes spent on Phone/Video with Pt.: 15 Assessment & Plan Assessment & Plan (1) Erectile dysfunction associated with type 2 diabetes mellitus: Code(s): E11.69 - Type 2 diabetes mellitus with other specified complication; N52.1 - Erectile dysfunction due to diseases classified elsewhere Category: Medical Plan Six-month follow-up Change dosage in Medications: New tadalafil BIN [facility] Group [facility] DR33 [id number] 10 mg PO DAILY 90 days 90 tabs 0RF sexual activity E11.69 - Type 2 diabetes mellitus with other specified complication, N52.1 - Erectile dysfunction due to diseases classified elsewhere Changed From tadalafil [id number] [facility] [id number] Member [id number] 20 mg PO ONCE 30 days PRN 30 tabs 2RF sexual activity E11.69 - Type 2 diabetes mellitus with other specified complication, N52.1 - Erectile dysfunction due to diseases classified elsewhere To tadalafil BIN N Group [facility] DR33 [id number] 20 mg PO ONCE 30 days PRN 30 tabs 2RF sexual activity E11.69 - Type 2 diabetes mellitus with other specified complication, N52.1 - Erectile dysfunction due to diseases classified elsewhere Patient Instructions: Imaging studies, laboratory and physical exam results were discussed and reviewed in detail. No major barriers to patient understanding were identified. An opportunity to ask questions regarding the treatment plan was provided. All questions were answered. The patient expressed understanding and agreement with the above treatment plan. The patient is aware they should contact our office by phone for worsening of their current condition or the appearance of new urologic symptoms. Compliance is encouraged with any medications and followup testing that is ordered. It is a privilege to participate in the urologic care of your patient. If you have any questions or concerns regarding treatment for the above conditions, or other urologic issues, please do not hesitate to contact me. The office telephone contact is [phone]. This note is constructed using voice recognition software. While every effort has been made to ensure accuracy product development intern errors may have been included. Yours sincerely, Dr Zachary Steve MD, [facility] - Urology Providers of Expert, Compassionate Care for the Genitourinary System Coding Level of Care Code Tele Est Pt Level 4 (32558) Diagnoses Erectile dysfunction associated with type 2 diabetes mellitus E11.69; N52.1
--- OUTSIDE RECORDS SUMMARY | 2024-07-23 11:41 | XMS_ITS | Clinical Summary ---
Author Organization [employer] Address [address] [place] [address] [address] [place] [address] Care Team Providers Care Director Of Nuclear Medicine Name Role Phone Unavailable Primary Care Provider Unavailabl e Social History Tobacco Use Types Packs/Day Years Used Date Smoking Tobacco: Never Assessed Sex and Gender Information Value Date Recorded Sex Assigned at Male 04/23/2022 10:24 AM EDT Legal Sex Male 10:24 AM EDT Gender Identity Not on file Sexual Orientation Not on file Plan of Treatment Health Maintenance Due Date Last Done Comments CT Colonography 1969 Colonoscopy 1969 Colorectal Cancer Screening 1969 Depression Screening 1969 FIT DNA/Cologuard 1969 FIT 1969 FOBT 1969 Lipid Panel 1969 Sigmoidoscopy 1969 Alcohol/Substance Use Screening 1981 Tobacco Screening 1981 DTaP/Tdap/Td Vaccines (1 - Tdap) 1988 Hepatitis B Vaccines (1 of 3 - 19+ 3-dose series) 1988 Zoster Vaccines (1 of 2) 2019 COVID-19 Vaccine (2023-2 5 season) 2024 Influenza Vaccine (#1) 2024 RSV Patients and Pa tients Aged 60 years or older (1 - 1-dose 75+ series) 2044 HIB Vaccines Aged Out No longer eligi ble based on patient's age to complete this topic HPV Vaccines Aged Out No longer eligi ble based on patient's age to complete this topic Hepatitis A Vaccines Aged Out No long er eligible based on patient's age to complete this topic IPV Vaccines Aged Out No longer eligi ble based on patient's age to complete this topic Meningococcal Vaccine Aged Out No antonio ru eligible based on patient's age to complete this topic Pneumococcal Vaccine: Pediat rics (0 to 5 Years) and At-Risk Patients (6 to 49) Years) Aged Out No longer eligible b ased on patient's age to complete this topic RSV under 20 months Aged Out No longe r eligible based on patient's age to complete this topic Rotavirus Vaccines Aged Out No longer eligible based on patient's age to complete this topic
--- OUTSIDE RECORDS SUMMARY | 2024-07-23 11:41 | XMS_ITS | Clinical Summary ---
Author Organization [facility] Address [address] [place] [address] Care Team Providers Care Financial Examiner Name Role Phone Pcp, No MD Primary Care Provider Unavailabl e Allergies No known active allergies Medications repaglinide (PRANDIN) 0.5 mg tablet TAKE 1-2 TABLETS BY MOUTH THREE TIMES DAILY WITHIN 15 MINUTES OF A MEAL OR SNACK 2 Active Gavilax 17 gram/dose powder USE DIRECTED BY MOUTH THE DAY BEFORE PROCEDURE 2 Active pantoprazole (PROTONIX) 40 mg EC tablet 2 Active montelukast (SINGULAIR) 10 mg tablet Take 10 mg by mouth. 2 Active metFORMIN XR 500 mg 24 hr tablet Take 1,000 mg by mouth. 2 Active lisinopriL (PRINIVIL) 10 mg tablet TAKE 1 TABLET BY MOUTH DAILY. DISCONTINUE 5 MG LISINOPRIL PRESCRIPTION 2 Active hydrOXYzine (ATARAX) 50 mg tablet 2 Active fluticasone propionate (FLONASE) 50 mcg/actuation nasal spray 2 Active fluoride, sodium, 1.1 % gel USE BEFORE BEDTIME 2 Active Jardiance 25 mg tablet Take 25 mg by mouth every morning. 2 Active Trulicity 0.75 mg/0.5 mL pen injector ADMINISTER 0.75 MG UNDER THE SKIN EVERY WEEK 2 Active atorvastatin (LIPITOR) 40 mg tablet Take 40 mg by mouth. 2 Active Social History Tobacco Use Types Packs/Day Years Used Date Smoking Tobacco: Former Cigarettes 1 - 2019 Smokeless Tobacco: Never Alcohol Use Standard Drinks/Week Comments Never 0 (1 standard drink = 0.6 oz pur e alcohol) Sex and Gender Information Value Date Recorded Sex Assigned at Not on file Legal Sex Male 12:39 PM EDT Gender Identity Not on file Sexual Orientation Not on file Plan of Treatment Health Maintenance Due Date Last Done Comments CT Colonography 1969 Colonoscopy 1969 Colorectal Cancer Screening 1969 FIT-DNA (Cologuard) 1969 FIT 1969 FOBT 1969 Flex Sigmoidoscopy - 5y 1969 HIV Screening 1969 DTaP,Tdap,and Td Vaccines (1 - Tdap) 1987 Hepatitis C Screening 1987 Hepatitis B Vaccines (1 of 3 - 19+ 3-dose series) 1988 Zoster Vaccines (1 of 2) 2019 COVID-19 Vaccine (2023-2 5 season) 2024 Influenza Vaccine (#1) 2024 HPV Vaccines Aged Out No longer eligi ble based on patient's age to complete this topic Hepatitis A Vaccines Aged Out No long er eligible based on patient's age to complete this topic MMR Vaccines Aged Out No longer eligi ble based on patient's age to complete this topic Meningococcal Vaccine Aged Out No antonio ru eligible based on patient's age to complete this topic Pneumococcal Vaccine: Pediat rics (0 to 5 Years) and At-Risk Patients (6 to 64 Years) Aged Out No longer eligible b ased on patient's age to complete this topic [place] [address] [place] [address] - OUT OF [facility] Care Teams Financial Examiner Relationship Specialty Start Date End Date Michelle Kumar MD [address] [place] [address] PCP - General Internal Medicine 10/16/21
--- OUTSIDE RECORDS SUMMARY | 2024-07-23 11:41 | XMS_ITS | Clinical Summary ---
Author Organization [facility] Address [address] [place] [address] Care Team Providers Care Electric Scoop Operator Name Role Phone Unavailable Primary Care Provider Unavailabl e Social History Tobacco Use Types Packs/Day Years Used Date Smoking Tobacco: Never Assessed Sex and Gender Information Value Date Recorded Sex Assigned at Not on file Gender Identity Not on file Sexual Orientation Not on file Plan of Treatment Health Maintenance Due Date Last Done Comments Hepatitis C Virus Screening 1969 HIV Screening 1982 DTaP/Tdap/Td Vaccines (1 - Tdap) 1988 Hepatitis B Vaccines (1 of 3 - 19+ 3-dose series) 1988 Pneumococcal Vaccines 50+ (1 of 1 - PCV) 2019 Zoster (Shingles) Vaccine (1 of 2) 2019 COVID-19 Vaccine (2023-2 5 season) 2024 Pneumococcal Vaccine: Pediat alcon (0-5 Years) and At-Risk Patients (6 to 49 Years) Aged Out No longer eligible b ased on patient's age to complete this topic
--- OUTSIDE RECORDS SUMMARY | 2024-07-23 11:42 | XMS_ITS | Encounter Summary ---
Author Organization [facility] Address [address] [place] [address] [address] [place] [address] Care Team Providers Care Precast Worker Name Role Phone Unavailable Primary Care Provider Unavailabl e Encounter Details Date Type Department Care Team (Latest Contact Info) Description 10/02/2018 Abstract [facility] CONVERSIONS Dental, Provider, DDS Social History Tobacco Use Types Packs/Day Years Used Date Smoking Tobacco: Never Assessed Sex and Gender Information Value Date Recorded Sex Assigned at Male 04/23/2022 10:24 AM EDT Legal Sex Male 10:24 AM EDT Gender Identity Not on file Sexual Orientation Not on file documented as of this encounter Plan of Treatment Not on file documented as of this encounter Visit Diagnoses Not on filedocumented in this encounter
--- OUTSIDE RECORDS SUMMARY | 2024-07-23 11:42 | XMS_ITS ---
Author Name [facility] Organization Unknown History of Medication Use Medication Directions Dispensed Refills Start Date End Date Stat us montelukast (SINGULAIR) 10 mg tablet Take 10 mg by mouth. 09/21/2021 active bupivacaine HCl (MARCAINE) 0.5 % (5 mg/mL) injection 1 mL 12/20/2021 2 completed lisinopriL (PRINIVIL) 10 mg tablet TAKE 1 TABLET BY MOUTH DAILY. DISCONTINUE 5 MG LISINOPRIL PRESCRIPTION 10/20/2021 active betamethasone acet,sod phos (CELESTONE) 6 mg/mL injection 6 mg 6 mg, intra-articular, One-time injection, 1 dose, Starting on Sat12/20/21 at 0956, Until Sat12/20/21 at 0956 12/20/2021 2 completed Jardiance 25 mg tablet Take 25 mg by mouth every morning. 09/20/2021 active Trulicity 0.75 mg/0.5 mL pen injector ADMINISTER 0.75 MG UNDER THE SKIN EVERY WEEK 10/20/2021 active Problems Problem Status Onset Date Problem Type Date of Resolution Source Nondisplaced fracture of navicular (scaphoid) of left foot, initial encounter for closed fracture active EncounterDiagnosisAct [facility] Arthritis of ankle or foot, degenerative, left active EncounterDiagnosisAct [facility] Osteochondral lesion of talar dome active EncounterDiagnosisAct [facility]
--- OUTSIDE RECORDS SUMMARY | 2024-07-23 11:42 | XMS_ITS | Clinical Summary ---
Author Organization [employer] [facility] ity Address [address] [place] [address] Care Team Providers Care Psychologists Name Role Phone Unavailable Primary Care Provider Unavailabl e Social History Tobacco Use Types Packs/Day Years Used Date Smoking Tobacco: Never Assessed Sex and Gender Information Value Date Recorded Sex Assigned at Not on file Gender Identity Not on file Sexual Orientation Not on file Plan of Treatment Health Maintenance Due Date Last Done Comments DTaP,Tdap,and Td Vaccines (1 - Tdap) 1988 Hepatitis B Vaccines (1 of 3 - 19+ 3-dose series) 1988 Zoster Vaccines (1 of 2) 2019 COVID-19 Vaccine (2023-2 5 season) 2024 Influenza Vaccine (#1) 2024 HIB Vaccines Aged Out No longer eligi [...] patient's age to complete this topic Meningococcal ACWY Vaccine Aged Out N o longer eligible based on patient's age to complete this topic Pneumococcal Vaccine: Pediat rics (0 to 5 Years) and At-Risk Patients (6 to 64 Years) Aged Out No longer eligible b ased on patient's age to complete this topic RSV Immunization Patients Un galo 20 months Aged Out No longer eligible b ased on patient's age to complete this topic Varicella Vaccines Aged Out No longer eligible based on patient's age to complete this topic
== END 2024-07-23 09:37 | disposition home or self-care (01) ==
LOC: HO.HUSH 08:52
PROVIDERS: PCP Physician Assistant; Visit Provider Urology
DX: E11.69 Type 2 diabetes mellitus with other specified complication (principal); N52.1 Erectile dysfunction due to diseases classified elsewhere
CPT/HCPCS: 99214

== ENCOUNTER → 2024-07-23 08:52 | Outpatient (BNVA) | payer OTHER, SELFPAY | PROVIDERS: PCP Physician Assistant; Visit Provider Urology ==

== ENCOUNTER 2024-08-14 09:15 | Outpatient (REF) | payer OTHER, SELFPAY ==
--- OUTSIDE RECORDS SUMMARY | 2024-08-14 09:44 | XMS_ITS | Clinical Summary ---
Author Organization [facility] Address [address] [place] [address] Care Team Providers Care Starch Treating Assistant Name Role Phone Unavailable Primary Care Provider [...]
--- OUTSIDE RECORDS SUMMARY | 2024-08-14 09:45 | XMS_ITS | Clinical Summary ---
Author Organization [employer] [employer] [facility] ity Address [address] [place] [address] Care Team Providers Care Admitting Counselor Name Role Phone Unavailable Primary Care Provider Unavailabl e Social History Tobacco Use Types Packs/Day Years Used Date Smoking Tobacco: Never Assessed Sex and Gender Information Value Date Recorded Sex Assigned at Not on file Legal Sex Male 12:47 PM EST Gender Identity Not on file Sexual Orientation Not on file Plan of Treatment Health Maintenance Due Date Last Done Comments DTaP,Tdap,and Td Vaccines (1 - Tdap) 1988 Hepatitis B Vaccines (1 of 3 - 19+ 3-dose series) 1988 Pneumococcal Vaccine: 50+ Ye ars (1 of 1 - PCV) 2019 Zoster Vaccines (1 of 2) 2019 COVID-19 Vaccine ( - 2023-2 5 season) 2024 Influenza Vaccine (#1) 2024 [...] patient's age to complete this topic Meningococcal B Vacine Aged Out No lo nger eligible based on patient's age to complete [...]
--- OUTSIDE RECORDS SUMMARY | 2024-08-14 09:45 | XMS_ITS | Clinical Summary ---
Author Organization [facility] Address [address] [place] [address] Care Team Providers Care Elevator Builder Name Role Phone Pcp, No MD Primary [...] patient's age to complete this topic [place] [address] [place] [address] - OUT OF [facility] Care Teams Elevator Builder Relationship Specialty Start Date End Date Michelle Kumar MD [address] [place] [address] PCP - General Internal Medicine 10/16/21
--- OUTSIDE RECORDS SUMMARY | 2024-08-14 09:45 | XMS_ITS | Clinical Summary ---
Author Organization [employer] Address [address] [place] [address] [address] [place] [address] Care Team Providers Care Stem Cleaning Machine Feeder Name Role Phone Unavailable Primary Care Provider [...]
--- OUTSIDE RECORDS SUMMARY | 2024-08-14 09:45 | XMS_ITS | Encounter Summary ---
Author Organization [employer] [facility] Address [address] [place] [address] [address] [place] [address] Care Team Providers Care Demolition Worker Name Role Phone Unavailable Primary Care Provider Unavailabl e Encounter Details Date Type Department Care Team (Latest Contact Info) Description 10/02/2018 Abstract [facility] CONVERSIONS Dental, Provider, DDS Social History Tobacco [...]
[2024-08-14 09:58] LABS: Hematocrit 49.6 % (42.0-52.0); Hemoglobin 17.4 g/dl (14.0-18.0); Mean Corpuscular HGB Conc 35.1 g/dl (31.0-36.0); Mean Corpuscular Hemoglobin 30.7 pg (27.0-33.0); Mean Corpuscular Volume 87.6 fL (80.0-98.0); Mean Platelet Volume 10.1 fL (9.4-12.4); Platelet Count 207 X10*3/uL (160-400); Red Blood Count 5.66 X10*6/uL (4.60-5.80); Red Cell Distribution Width 12.5 % (11.0-16.0)
[2024-08-14 10:05] LABS: Estimated Average Glucose 220 mg/dL; Hemoglobin A1C 354.2057 umol/L; Hemoglobin A1c % 9.3 % (<6.0)
[2024-08-14 10:42] LABS: Alanine Aminotransferase 54 U/L (0-40); Albumin Level 4.3 g/dL (3.5-5.0); Alkaline Phosphatase 77 U/L (39-117); Anion Gap 12 (12-20); Aspartate Amino Transferase 28 U/L (5-37); Bilirubin Total 0.5 mg/dL (0.0-1.0); Blood Urea Nitrogen 20 mg/dL (9-16); Calcium 9.6 mg/dL (8.4-10.2); Carbon Dioxide 27 mmol/L (22-29); Chloride 102 mmol/L (96-108); Cholesterol 166 mg/dL (<200); Estimated Glomerular Filt Rate > 60; Glucose Fasting 175 mg/dL (60-99); HDL Cholesterol 56 mg/dL (>40); LDL Cholesterol Calculated 93 mg/dL (<100); Microalbum/Creatinine Ratio Ur 8.1 ug/mg cr (<30); Potassium 4.4 mmol/L (3.3-5.1); Sodium 137 mmol/L (135-145); Triglycerides 87 mg/dL (<150)
[2024-08-14 10:52] LABS: Prostate Specific Antigen Scr 0.71 ng/mL (<0.05-4.0)
== END 2024-08-14 09:16 | disposition home or self-care (01) ==
LOC: HO.LAB 09:15
PROVIDERS: PCP Physician Assistant; Visit Provider Physician Assistant
DX: E11.65 Type 2 diabetes mellitus with hyperglycemia (principal); E78.5 Hyperlipidemia, unspecified; Z12.5 Encounter for screening for malignant neoplasm of prostate
CPT/HCPCS: 36415; 80053; 80061; 82043; 82570; 83036; 84153; 85027

== ENCOUNTER 2024-08-25 08:14 | Outpatient (AMB) | payer OTHER, SELFPAY ==
--- NOTE | 2024-08-25 08:17 | MHC.PC.OV ---
Vital Signs 08/25/24 08:18 Height 5 ft 8 in Weight 182 lb BMI 27.7 BP 120/72 Blood Pressure Location Lt brachial Position Sitting Pulse 72 Pulse Source Pulse Oximeter Pulse Oximetry (%) 97 Oxygen Delivery Method Room Air Intake Visit Reasons: Overdue for PE/DMII Boatswain'S Mate Required: No Accompanied by: Self / Same As Patient Allergies No Known Allergies [No Known Allergies*] Allergy (Verified 08/25/24 08:25) Medication List - Last Reconciled 08/25/24 by Juni Ro PA-C atorvastatin 40 mg PO DAILY 90 days blood sugar diagnostic (FreeStyle Lite Strips) BID - TID blood-glucose meter (FreeStyle Almont Lite kit) As directed dulaglutide (Trulicity) 0.75 mg (0.5 mL) subcut QWEEK empagliflozin (Jardiance) 25 mg PO QAM fluticasone propionate 50 mcg/actuation 1 spray intranasal DAILY gabapentin 300 mg PO BID 30 days hydroxyzine HCl 50 mg PO BEDTIME 30 days ipratropium bromide 2 sprays intranasal BID lisinopril 10 mg PO DAILY 90 days meloxicam 15 mg PO DAILY PRN 30 days metformin ER 1,000 mg (2 x 500 mg) PO BID methocarbamol 750 mg PO TID PRN 30 days methylcellulose (laxative) (Citrucel) 500 mg PO TID montelukast 10 mg PO DAILY 90 days pantoprazole 40 mg PO DAILY 90 days repaglinide 0.5 - 1 mg (1 - 2 x 0.5 mg) PO TID tadalafil 10 mg PO DAILY 90 days tadalafil 20 mg PO ONCE PRN 30 days Tobacco use date assessed: 08/25/24 Dental Screening Dental Screen Date: 08/25/24 Did you have a dental visit in the last 12 months?: Yes Did you have a dental problem in the last 6 months where you did not have access to dental care?: No Was dental information given to patient?: Patient has dentist HPI Overdue for PE/DMII HPI Details Patient is a 54 year-old male here today for routine annual physical ? significant for HTN, DMII, HLD, ED, VALLES, ? Chronic lumbar spine pain,chronic left foot navicular fx. ? .. Lumbar disc disease: reports continues to have lower back pain , worse with long periods of sitting and standing. Has seen [facility] in the past and was given gabapentin which was not effective in reducing his pain. He has gotten injections in his back though have not been effective on reducing his pain.. 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 .. ? HTN: ? He reports blood pressures when taken at home have been stable. ? patient denies any shortness of breath, chest discomfort or headaches. Continues on? Lisinopril 10 mg. ? .. ? DMII:? He has lost follow up with [facility]. 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 . continues on metformin, Jardiance and Trulicity.? Today's A1c at 9.3 He reports dietary indiscretion over the last few months. PLAN: will work extensively diabetic diet and will recheck A1c in 3 months and if still above 9 will consider starting insulin therapy. Colon cancer screening: Colonoscopy done in June 2022, normal repeat 10 years Vaccines: Up-to-date with shingles, tetanus, needs PCV_ 20, and COVID vaccines [facility] Medical History Diverticulosis of colon Diabetes type 2, uncontrolled Overweight Smoking Chronic sinusitis Hyperlipidemia LDL goal <100 Essential hypertension Controlled diabetes mellitus without complication, without long-term current use of insulin Anxiety Depression HTN (hypertension) Diabetes Surgical History Hx of colonoscopy History of nasal surgery Hx of rhinoplasty Hx of foot surgery History of cataract surgery History of appendectomy H/O elbow surgery History of repair of rotator cuff Family History Mother Diabetes Hypertension Father Medical history unknown Social History Household Members: None Housing: House Alcohol intake: never Comment: counts correct Patient Tobacco Use Status: Former Tobacco user Tobacco use type: Cigarette Years Smoked: 1 1/2 year ago e-Cigarette/Vaping Use: Never Used Second Hand Smoke Exposure: No service: No 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al status: unemployed and disabled 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 1. Little interest or pleasure in doing things: not at all 2. Feeling down, depressed, or hopeless: not at all 3. Trouble falling or staying asleep, or sleeping too much: not at all 4. Feeling tired or having little energy: not at all 5. Poor appetite or overeating: not at all 6. Feeling bad about yourself - or that you are a failure or have let yourself or your family down: not at all 7. Trouble concentrating on things, such as reading the newspaper or watching television: not at all 8. Moving or speaking so slowly that other people could have noticed. Or the opposite - being so fidgety or restless that you have been moving around a lot more than usual: not at all 9. Thoughts that you would be better off or of hurting yourself in some way: not at all Total score: 0 Depression Screening Interpretation: Negative Depression Screening Done: Yes Source: Developed by Drs. Rasheed Pena, Fanta Dutton, Garcia Parham and colleagues, with an educational jerrod from [employer]. Thrive Questionnaire Date Thrive assessed: 08/25/24 I am a: Patient What is your living situation today?: I have a steady place to live Within the past 12 months, did the food you bought not last and you didn't have the money to get more?: Never true Within the past 12 months, did you worry whether your food would run out before you got money to buy more?: Never true Do you have trouble paying for medicines?: No Do you have trouble getting transportation to medical appointments?: No Do you have trouble paying your heating and electricity bill?: No Do you have trouble taking care of your child, family member or friend?: No Do you have trouble with day-to-day activities such as bathing, preparing meals, shopping, managing finances, etc.?: No Are you currently unemployed and looking for a job?: No Are you interested in more education?: No Please select the resources that you would like help with: None Currently or been in a relationship where the following occur: No concerns reported THRIVE Score: 0 AUDIT C Alcohol Use Questionnaire (AUDIT-C) 1. How often do you have a drink containing alcohol?: Never Total Score: 0 FRANCISCO-7 AMB Questionnaire FRANCISCO-7 Date FRANCISCO - 7 assessed: 08/25/24 Feeling nervous, anxious, or on edge: 0 = Not at all Not being able to stop or control worryin = Not at all Worrying too much about different things: 0 = Not at all Trouble relaxin = Not at all Being so restless that it is hard to sit still: 0 = Not at all Becoming easily annoyed or irritable: 0 = Not at all Feeling afraid as if something awful might happen: 0 = Not at all Total FRANCISCO-7 score (0-4 normal; 5-9 mild; 10-14 moderate; 15-21 severe): 0 Source: Developed by Drs. Rasheed Pena, Fanta Dutton, Garcia Parham and colleagues, with an educational jerrod from [employer]. Review of Systems Const Denies body aches, Denies chills, Denies excessive sweating, Denies fatigue, Denies fever(s) and Denies headache(s) Eyes Denies blurry vision ENT Denies dysphagia, Denies vertigo, Denies dizziness, Denies headache(s), Denies hearing loss and Denies tinnitus Card Denies chest pain, Denies chest pain with activity, Denies syncope, Denies irregular heart rhythm and Denies dyspnea Resp Denies chest congestion, Denies cough, Denies hemoptysis, Denies dyspnea and Denies wheezing GI Denies abdominal pain, Denies melena, Denies hematochezia, Denies coffee ground emesis, Denies dysphagia, Denies diarrhea, Denies nausea and Denies vomiting Denies difficulty urinating, Denies dysuria, Denies urinary frequency, Denies urinary hesitancy and Denies urinary urgency Musc Reports back pain, Denies arthralgias, Denies limited range of motion, Denies muscle cramps and Denies muscle weakness Skin/Breast Denies rash and Denies skin ulcer Neuro Denies Abnormal speech present, Denies confusion, Denies vertigo, Denies dizziness, Denies syncope, Denies headache(s), Denies memory loss and Denies seizure-like activity Psych Denies anxiety, Denies confusion, Denies depression, Denies memory loss, Denies panic attacks and Denies paranoia Endo Denies excessive sweating, Denies fatigue, Denies flushing, Denies polydipsia and Denies polyuria Aller/Immun Denies wheezing Physical exam (Primary Care) Vital Signs: Last Vital Signs Pulse 72 08/25/24 08:18 BP 120/72 08/25/24 08:18 Pulse Ox 97 08/25/24 08:18 Oxygen Delivery Method Room Air 08/25/24 08:18 BMI result Body Mass Index 27.7 Tobacco/Smoking Status: Tobacco use Status Tobacco use date assessed 08/25/24 08/25/24 08:21 Patient Tobacco Use Status Former Tobacco user 08/25/24 08:21 Tobacco use type Cigarette 08/25/24 08:21 e-Cigarette/Vaping Use Never Used 08/25/24 08:21 PHQ-9: PHQ-9 Score PHQ-9: Total score 0 08/25/24 08:56 Depression Screening Interpretation: Negative Thrive Assessment: Date of Thrive Assessment Date Thrive assessed 08/25/24 08/25/24 08:21 Currently or been in a relationship where the following occur: No concerns reported Const General: cooperative, comfortable, no acute distress, alert and awake; No confusion Orientation/consciousness: oriented to person, oriented to place, patient oriented x3 and No confusion HENMT Head: Yes normocephalic Ears: external ears normal and TM's normal bilaterally Face and sinus: No sinus tenderness Mouth: Normal oral and palatal mucosa present and tongue normal Teeth and gingiva: dentition normal and gingiva normal Throat: Yes posterior oropharynx normal, Yes tonsils normal and Yes uvula midline Eyes Conjunctivae: conjunctivae normal Sclerae: sclerae normal Pupils: Equal, round and reactive pupils present EOM: EOMs intact bilaterally Direct Ophthalmoscopy: No no photophobia Neck Neck: Yes no lymphadenopathy, No tender and Yes no JVD Thyroid: Thyroid normal Carotids: no bruits Chest Chest palpation & inspection: no tenderness Resp Effort & Inspection: normal respiratory effort, no audible wheezes, not labored and no stridor Auscultation: no crackles, no rales, no rhonchi and no wheezes Cardio Jugular venous distension: no JVD Rate: regular rate, not bradycardic and not tachycardic Rhythm: regular rhythm Bruits: no carotid bruits Peripheral pulses: Peripheral pulses 2+ throughout GI Inspection: Yes normal to inspection, No abdominal wall ecchymosis and No visible herniation Palpation (GI): Soft to palpation, nontender, no guarding, not rigid and No hepatosplenomegaly present Auscultation: normoactive bowel sounds General: Yes no CVA tenderness Back/Spine/Pelvis Back: no CVA tenderness and No back tenderness Cervical Spine: cervical ROM normal Thoracic/Lumbar Spine: thoracic and lumbar spine normal to inspection, straight leg raise negative bilaterally, No thoraco-lumbar ROM limited and No lumbar spinal tenderness Skin Lesions: no lesions Rashes: no rashes Wounds: no wounds Neuro General: oriented to person, oriented to place, patient oriented x3, CN's II-XI intact bilaterally and No confusion Cranial nerves: Yes Equal, round and reactive pupils present and Yes Normal accommodation reflex present Cognition (Neuro): normal cognition Speech: No Abnormal speech present Gait exam (Neuro): Normal gait present Motor exam (neuro): 5/5 motor strength present throughout Extrem Right upper extremity: full ROM; no cyanosis Left upper extremity: full ROM; no cyanosis Right lower extremity: no edema Left lower extremity: no edema Psych Appearance: grossly normal Mental Status: mental status grossly normal Affect: normal affect Attitude: cooperative Thought process: Normal thought process present Immunizations pneumoc 20-ofelia conj-dip cr(PF) 0.5 mL IM syringe Performing Provider: Juni Ro PA-C [place] [facility] [place] [facility] Administered by: LIZ Keating on 08/25/24 08:55 Dose Route Admin Location Dispensed Lot Number Expiration Date [facility] Counterintelligence Agent 0.5 mL IM Left Deltoid 0.5 mL [id number] 10/22/25 [employer] Medical/Medical Breakthroughs Fund VIS Given Date VIS Provided VIS Publication Date 08/25/24 Single Vaccine 21 Eligibility Eligibility Date Funding Source Not [facility] Eligible 08/25/24 Private Coding Level of Care Code Est Pt Prev Care 40-64y(54143) Diagnoses Annual physical exam Z00.00 Uncontrolled type 2 diabetes mellitus with hyperglycemia E11.65 Glycemic state: with hyperglycemia Essential hypertension I10 Hyperlipidemia LDL goal <100 E78.5 Assessment & Plan Assessment & Plan (1) Annual physical exam: Code(s): Z00.00 - Encounter for general adult medical examination without abnormal findings Category: Medical Plan: As per HPI (2) Diabetes type 2, uncontrolled: Code(s): E11.65 - Type 2 diabetes mellitus with hyperglycemia Category: Medical Qualifiers: Glycemic state: with hyperglycemia Qualified Code(s): E11.65 - Type 2 diabetes mellitus with hyperglycemia Plan: Patient's type 2 diabetes not well controlled. He reports dietary indiscretion. Most recent A1c at 9.3. He continues on Trulicity and Jardiance which has been effective on controlling his sugars in the past. Will work on dietary modifications extensively over the next 3 months and if A1c still above 9 will considered daily long-acting insulin. Goal A1c is to be below 7.0 (3) Essential hypertension: Code(s): I10 - Essential (primary) hypertension Category: Medical Plan: Patient's blood pressure acceptable today in office. Will continue his current dose of lisinopril with goal blood pressure to remain below 140/90 (4) Hyperlipidemia LDL goal <100: Code(s): E78.5 - Hyperlipidemia, unspecified Category: Medical Plan: Patient's most recent fasting lipid panel showing excellent control of his total cholesterol and LDL. Will continue his current dose of atorvastatin 40 mg. Goal LDL is to remain below 100 Orders: Orders Pneumococcal 20 Immunization 08/25/24 E11.65 - Type 2 diabetes mellitus with hyperglycemia, Z23 - Encounter for immunization Medications: Changed From blood sugar diagnostic (FreeStyle Lite Strips) BID - TID 100 ea 11RF E11.65 - Type 2 diabetes mellitus with hyperglycemia To blood sugar diagnostic (FreeStyle Lite Strips) testing twice per day 100 ea 11RF E11.65 - Type 2 diabetes mellitus with hyperglycemia Refilled blood-glucose meter (FreeStyle Almont Lite kit) As directed 1 ea 0RF E11.65 - Type 2 diabetes mellitus with hyperglycemia Patient Instructions: Goal: Blood pressure to remain below 140/90, LDL to be below 100, A1c to be below 7.0 Barriers: Adherence to physical activity and healthy eating habits
[2024-08-25 08:18] VITALS: BP 120/72; PULSE 72; O2SAT 97; BMI 27.7
--- OUTSIDE RECORDS SUMMARY | 2024-08-25 08:32 | XMS_ITS | Clinical Summary ---
Author Organization [employer] Address [address] [place] [address] [address] [place] [address] Care Team Providers Care Prepper Name Role Phone Unavailable Primary Care Provider [...]
--- OUTSIDE RECORDS SUMMARY | 2024-08-25 08:32 | XMS_ITS | Encounter Summary ---
Author Organization [employer] [facility] Address [address] [place] [address] [address] [place] [address] Care Team Providers Care Seafood Clerk Name Role Phone Unavailable Primary Care Provider Unavailabl e Encounter Details Date Type Department Care Team (Latest Contact Info) Description 10/02/2018 Abstract [facility] CONVERSIONS Dental, Provider, DDS Social History Tobacco [...]
--- OUTSIDE RECORDS SUMMARY | 2024-08-25 08:32 | XMS_ITS | Clinical Summary ---
Author Organization [facility] Address [address] [place] [address] Care Team Providers Care Inclusion Paraeducator Name Role Phone Unavailable Primary Care Provider [...]
--- OUTSIDE RECORDS SUMMARY | 2024-08-25 08:32 | XMS_ITS | Clinical Summary ---
Author Organization [facility] Address [address] [place] [address] Care Team Providers Care Men'S Golf Coach Name Role Phone Unavailable Primary Care Provider [...]
--- OUTSIDE RECORDS SUMMARY | 2024-08-25 08:32 | XMS_ITS | Clinical Summary ---
Author Organization [facility] Address [address] [place] [address] Care Team Providers Care Auto Damage Trainee Name Role Phone Pcp, No MD Primary [...] patient's age to complete this topic [place] [place] [address] - OUT OF REPLACED BY [facility] Care Teams Auto Damage Trainee Relationship Specialty Start Date End Date Michelle Kumar MD [address] [place] [address] PCP - General Internal Medicine 10/16/21
== END 2024-08-25 09:00 | disposition home or self-care (01) ==
PROVIDERS: PCP Physician Assistant; Visit Provider Physician Assistant
DX: Z00.00 Encounter for general adult medical examination without abnormal findings (principal); E11.65 Type 2 diabetes mellitus with hyperglycemia; I10 Essential (primary) hypertension; E78.5 Hyperlipidemia, unspecified

== ENCOUNTER → 2024-08-25 08:14 | Outpatient (BNVA) | payer OTHER, SELFPAY | PROVIDERS: PCP Physician Assistant; Visit Provider Physician Assistant | DX: Z00.00 Encounter for general adult medical examination without abnormal findings (principal); Z23 Encounter for immunization; E11.65 Type 2 diabetes mellitus with hyperglycemia; E78.5 Hyperlipidemia, unspecified; I10 Essential (primary) hypertension | CPT/HCPCS: 90471; 90677; 99396 ==

== ENCOUNTER 2024-11-25 09:17 | Outpatient (AMB) | payer OTHER, SELFPAY ==
--- NOTE | 2024-11-25 09:29 | MHC.PC.OV ---
Vital Signs 11/25/24 09:30 11/25/24 09:59 Height 5 ft 8 in Weight 179 lb 6 oz BMI 27.3 BP 140/72 H 138/74 Blood Pressure Location Lt brachial Position Sitting Pulse 70 Pulse Source Monitor Temp 97.1 F Temp Source Temporal Artery Scan Pulse Oximetry (%) 94 Oxygen Delivery Method Room Air Intake Visit Reasons: f/u DMII Intake Note: Patient is here to follow up on DMII. [employer] Planners Required: No Video And Sound Recorder: Not Required per policy Accompanied by: Self / Same As Patient Allergies No Known Allergies [No Known Allergies*] Allergy (Verified 11/25/24 09:49) Medication List - Last Reconciled 11/25/24 by Juni Ro PA-C atorvastatin 40 mg PO DAILY 90 days blood sugar diagnostic (FreeStyle Lite Strips) testing twice per day blood-glucose meter (FreeStyle Williams Lite kit) As directed dulaglutide (Trulicity) 0.75 mg (0.5 mL) subcut QWEEK empagliflozin (Jardiance) 25 mg PO QAM fluticasone propionate 50 mcg/actuation 1 spray intranasal DAILY gabapentin 300 mg PO BID 30 days hydroxyzine HCl 50 mg PO BEDTIME 30 days ipratropium bromide 2 sprays intranasal BID lisinopril 10 mg PO DAILY 90 days meloxicam 15 mg PO DAILY PRN 30 days metformin ER 1,000 mg (2 x 500 mg) PO BID methocarbamol 750 mg PO TID PRN 30 days methylcellulose (laxative) (Citrucel) 500 mg PO TID montelukast 10 mg PO DAILY 90 days pantoprazole 40 mg PO DAILY 90 days repaglinide 0.5 - 1 mg (1 - 2 x 0.5 mg) PO TID tadalafil 10 mg PO DAILY 90 days tadalafil 20 mg PO ONCE PRN 30 days Tobacco use date assessed: 11/25/24 Dental Screening Dental Screen Date: 08/25/24 HPI f/u DMII HPI Details Patient is a 54 year-old male here today for a follow-up visit ? significant for HTN, DMII, HLD, ED, VALLES, ? Chronic lumbar spine pain,chronic left foot navicular fx. ? .. Lumbar disc disease: reports continues to have lower back pain , worse with long periods of sitting and standing. Has seen [facility] in the past and was given gabapentin which was not effective in reducing his pain. He has gotten injections in his back though have not been effective on reducing his pain.. He reports he has been unable to work due to his chronic lower back pain. He is trying to get on on employment at this time. Has gotten x-rays did show mild spondyloarthritis and MRI in 2022 did show L5-S1 degenerative disc.. .. ? HTN: ? He reports blood pressures when taken at home have been stable. ? patient denies any shortness of breath, chest discomfort or headaches. Continues on? Lisinopril 10 mg. ? .. ? DMII:? He has lost follow up with [facility]. .Continues on metformin, Jardiance and Trulicity.? Today's A1c at 8.4 He reports dietary indiscretion over the last few months. PLAN: Will switch Trulicity to alternative GLP 1 for better glycemic control. PFSH Medical History Diverticulosis of colon Diabetes type 2, uncontrolled Overweight Smoking Chronic sinusitis Hyperlipidemia LDL goal <100 Essential hypertension Controlled diabetes mellitus without complication, without long-term current use of insulin Anxiety Depression HTN (hypertension) Diabetes Surgical History Hx of colonoscopy History of nasal surgery Hx of rhinoplasty Hx of foot surgery History of cataract surgery History of appendectomy H/O elbow surgery History of repair of rotator cuff Family History Mother Diabetes Hypertension Father Medical history unknown Social History Household Members: None Housing: House Alcohol intake: never Comment: counts correct Patient Tobacco Use Status: Former Tobacco user Tobacco use type: Cigarette Years Smoked: 1 1/2 year ago e-Cigarette/Vaping Use: Never Used Second Hand Smoke Exposure: Yes service: No 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al status: unemployed and disabled 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 Rasheed Pena, Fanta Dutton, Garcia Parham and colleagues, with an educational jerrod from [employer]. Review of Systems Const Denies headache(s) Eyes Denies loss of vision ENT Denies vertigo, Denies dizziness, Denies headache(s) and Denies sore throat Card Denies chest pain, Denies leg edema and Denies lightheadedness Resp Denies cough, Denies hemoptysis and Denies wheezing GI Denies abdominal pain, Denies melena, Denies constipation, Denies diarrhea and Denies vomiting Denies dysuria, Denies urinary frequency and Denies urinary urgency Musc Denies arthralgias, Denies joint swelling, Denies numbness and Denies tingling Neuro Denies Abnormal speech present, Denies behavioral changes, Denies vertigo, Denies dizziness, Denies headache(s), Denies loss of vision, Denies memory loss, Denies numbness and Denies tingling Psych Denies anxiety, Denies behavioral changes, Denies depression, Denies memory loss and Denies panic attacks Deshawn/Lymph Denies easy bleeding and Denies easy bruising Aller/Immun Denies wheezing Physical exam (Primary Care) Vital Signs: Last Vital Signs Temp 97.1 F 11/25/24 09:30 Pulse 70 11/25/24 09:30 BP 140/72 H 11/25/24 09:30 Pulse Ox 94 11/25/24 09:30 Oxygen Delivery Method Room Air 11/25/24 09:30 BMI result Body Mass Index 27.3 Tobacco/Smoking Status: Tobacco use Status Tobacco use date assessed 11/25/24 11/25/24 09:39 Patient Tobacco Use Status Former Tobacco user 11/25/24 09:39 Tobacco use type Cigarette 11/25/24 09:39 e-Cigarette/Vaping Use Never Used 11/25/24 09:39 Thrive Assessment: Date of Thrive Assessment Date Thrive assessed 08/25/24 11/25/24 09:39 Const General: healthy appearing, no acute distress, alert and awake Nutritional Appearance: well nourished Orientation/consciousness: oriented to person, oriented to place and oriented to time HENMT Ears: TM's normal bilaterally General nose exam: Normal nasal mucous membranes and turbinates present Eyes Conjunctivae: conjunctivae normal Sclerae: sclerae normal Pupils: Equal, round and reactive pupils present Neck Neck: Yes no lymphadenopathy and Yes no JVD Thyroid: Thyroid normal Carotids: no bruits Resp Effort & Inspection: normal respiratory effort and not tachypneic Auscultation: no crackles, no rales, no rhonchi and no wheezes Cardio Rate: regular rate Rhythm: regular rhythm Heart sounds: no murmurs and normal S1 and S2 GI Palpation (GI): Soft to palpation, nontender, no hepatomegaly and no splenomegaly Auscultation: normal bowel sounds Skin General skin exam: no rashes or lesions noted and dry skin Neuro General: oriented to person, oriented to place and oriented to time Cranial nerves: Yes Equal, round and reactive pupils present Speech: No Abnormal speech present Gait exam (Neuro): Normal gait present Motor exam (neuro): no tremor noted Extrem Right upper extremity: full ROM Left upper extremity: full ROM Right lower extremity: full ROM; no edema Left lower extremity: full ROM; no edema Psych Mental Status: mental status grossly normal Speech and movement: Normal speech and movement present Affect: normal affect Attitude: cooperative Thought process: Normal thought process present Results AMB Hemoglobin A1c AMB Hemoglobin A1c 8.4 % Last Edit by LIZ Cotto on 11/25/24 09:47 Results Reviewed Results Reviewed: Laboratory Last Values Hgb A1c (Clinic) 8.4 % (4.0-6.0) H 11/25/24 09:28 Coding Level of Care Code Est Pt Level 4 (73480) Diagnoses Uncontrolled type 2 diabetes mellitus with hyperglycemia E11.65 Glycemic state: with hyperglycemia Essential hypertension I10 Hyperlipidemia LDL goal <100 E78.5 Vertebrogenic low back pain M54.51 Assessment & Plan Assessment & Plan (1) Diabetes type 2, uncontrolled: Code(s): E11.65 - Type 2 diabetes mellitus with hyperglycemia Category: Medical Qualifiers: Glycemic state: with hyperglycemia Qualified Code(s): E11.65 - Type 2 diabetes mellitus with hyperglycemia Plan: Patient's type 2 diabetes suboptimally controlled with A1c today at 8.4 from 9.3. He reports dietary indiscretion. He continues on Trulicity and Jardiance which has been effective on controlling his sugars in the past. Will transitioned to new GLP 1- Monjauro for better glycemic control Goal A1c is to be below 7.0 (2) Essential hypertension: Code(s): I10 - Essential (primary) hypertension Category: Medical Plan: Patient's blood pressure acceptable today in office. Will continue his current dose of lisinopril with goal blood pressure to remain below 140/90 (3) Hyperlipidemia LDL goal <100: Code(s): E78.5 - Hyperlipidemia, unspecified Category: Medical Plan: Patient's most recent fasting lipid panel showing excellent control of his total cholesterol and LDL. Will continue his current dose of atorvastatin 40 mg. Goal LDL is to remain below 100 (4) Vertebrogenic low back pain: Code(s): M54.51 - Vertebrogenic low back pain Category: Medical Plan: Trial of methocarbamol for muscle relaxation alongside anti-inflammatory meds. Consider physical therapy if symptoms persist. Patient willing to see pain management again for pain reduction modality. Will try for a new MRI due to patient's chronicity of his lower back pain to evaluate for any worsening L5-S1 disc degeneration. Orders: Orders AMB Hemoglobin A1c Today E11.65 - Type 2 diabetes mellitus with hyperglycemia MR lumbar spine wo con Today M54.51 - Vertebrogenic low back pain Referrals Pain Management Referral M54.51 - Vertebrogenic low back pain Medications: New tirzepatide for 4 weeks 2.5 mg (0.5 mL) subcut QWEEK 4 weeks 2 mL 1RF E11.65 - Type 2 diabetes mellitus with hyperglycemia Refilled methocarbamol 750 mg PO TID 30 days PRN 90 tabs 1RF muscle spasm M47.816 - Spondylosis without myelopathy or radiculopathy, lumbar region, M62.830 - Muscle spasm of back meloxicam 15 mg PO DAILY 30 days PRN 30 tabs 1RF for pain M47.816 - Spondylosis without myelopathy or radiculopathy, lumbar region, M53.3 - Sacrococcygeal disorders, not elsewhere classified montelukast 10 mg PO DAILY 90 days 90 tabs 1RF J30.89 - Other allergic rhinitis Discontinued dulaglutide (Trulicity) Discontinued Reason: Doctor's Order 0.75 mg (0.5 mL) subcut QWEEK 2 mL 3RF E11.65 - Type 2 diabetes mellitus with hyperglycemia
[2024-11-25 09:30] VITALS: BP 140/72; PULSE 70; TEMP 36.2; O2SAT 94; BMI 27.3
--- OUTSIDE RECORDS SUMMARY | 2024-11-25 09:41 | XMS_ITS | Clinical Summary ---
Author Organization [facility] Address [address] [place] [address] Care Team Providers Care Welfare Manager Name Role Phone Unavailable Primary Care Provider Unavailabl e Social History Tobacco Use Types Packs/Day Years Used Date Smoking Tobacco: Never Assessed Sex and Gender Information Value Date Recorded Sex Assigned at Not on file Legal Sex Male 6:11 PM EST Gender Identity Not on file Sexual Orientation Not on file Plan of Treatment Health Maintenance Due Date Last Done Comments Hepatitis C Virus Screening 1969 HIV Screening 1982 DTaP/Tdap/Td Vaccines (1 - Tdap) 1988 Hepatitis B Vaccines (1 of 3 - 19+ 3-dose series) 04/25 Pneumococcal Vaccines 50+ (1 of 1 - PCV) 2019 Zoster (Shingles) Vaccine (1 of 2) 2019 COVID-19 Vaccine (1 - 2023- season) 2024
[2024-11-25 09:59] VITALS: BP 138/74
== END 2024-11-25 10:10 | disposition home or self-care (01) ==
LOC: HO.HMCH 09:19
PROVIDERS: PCP Physician Assistant; Visit Provider Physician Assistant
DX: E11.65 Type 2 diabetes mellitus with hyperglycemia (principal); I10 Essential (primary) hypertension; E78.5 Hyperlipidemia, unspecified; M54.51 Vertebrogenic low back pain

== ENCOUNTER → 2024-11-25 09:17 | Outpatient (BNVA) | payer OTHER, SELFPAY | PROVIDERS: PCP Physician Assistant; Visit Provider Physician Assistant | DX: E11.65 Type 2 diabetes mellitus with hyperglycemia (principal); I10 Essential (primary) hypertension; E78.5 Hyperlipidemia, unspecified; N52.9 Male erectile dysfunction, unspecified; K75.81 Nonalcoholic steatohepatitis (NASH); M54.51 Vertebrogenic low back pain; Z79.84 Long term (current) use of oral hypoglycemic drugs; Z79.899 Other long term (current) drug therapy; Z87.891 Personal history of nicotine dependence | CPT/HCPCS: 83036; 99212 ==

== ENCOUNTER 2024-12-07 08:00 | Outpatient (AMB) | payer OTHER, SELFPAY ==
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
[2024-12-07 08:27] VITALS: BP 137/87; PULSE 62; O2SAT 100; BMI 27.1
== END 2024-12-07 09:00 | disposition home or self-care (01) ==
LOC: HO.PMC 08:00
PROVIDERS: PCP Physician Assistant; Referring Provider Physician Assistant; Visit Provider Nurse Practitioner Family
DX: M51.370 Other intervertebral disc degeneration, lumbosacral region with discogenic back pain only (principal); M47.816 Spondylosis without myelopathy or radiculopathy, lumbar region; G89.29 Other chronic pain
CPT/HCPCS: 99214; G2211

== ENCOUNTER → 2024-12-07 08:00 | Outpatient (BNVA) | payer OTHER, SELFPAY | PROVIDERS: PCP Physician Assistant; Referring Provider Physician Assistant; Visit Provider Nurse Practitioner Family | DX: M47.816 Spondylosis without myelopathy or radiculopathy, lumbar region (principal); M51.370 Other intervertebral disc degeneration, lumbosacral region with discogenic back pain only; G89.29 Other chronic pain | CPT/HCPCS: 99212 ==

== ENCOUNTER 2025-03-01 08:44 | Outpatient (AMB) | payer OTHER, SELFPAY ==
--- NOTE | 2025-03-01 08:52 | A.OFFPC_ITS ---
Vital Signs 03/01/25 08:53 Height 5 ft 8 in Weight 157 lb 2 oz BMI 23.9 BP 120/72 Blood Pressure Location Lt brachial Position Sitting Pulse 86 Pulse Source Pulse Oximeter Temp 97.3 F Temp Source Temporal Artery Scan Pulse Oximetry (%) 96 Oxygen Delivery Method Room Air Intake Visit Reasons: f/u DMII/ HTN- A1C needed Intake Note: Patient is here to follow up on DM, HTN. 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 Required: No Furniture Salesperson: Not Required per policy Accompanied by: Self / Same As Patient Allergies No Known Allergies (No Known Allergies*) Allergy (Verified 03/01/25 09:06) Medication List - Last Reconciled 03/01/25 by Juni Ro PA-C atorvastatin 40 mg PO DAILY 90 days blood sugar diagnostic (FreeStyle Lite Strips) testing twice per day blood-glucose meter (FreeStyle [place] Lite kit) As directed empagliflozin (Jardiance) 25 mg PO QAM fluticasone propionate 50 mcg/actuation 1 spray intranasal DAILY gabapentin 300 mg PO BID 30 days hydroxyzine HCl 50 mg PO BEDTIME 30 days ipratropium bromide 2 sprays intranasal BID lisinopril 10 mg PO DAILY 90 days meloxicam 15 mg PO DAILY PRN 30 days metformin ER 1,000 mg (2 x 500 mg) PO BID methocarbamol 750 mg PO TID PRN 30 days methylcellulose (laxative) (Citrucel) 500 mg PO TID montelukast 10 mg PO DAILY 90 days pantoprazole 40 mg PO DAILY 90 days repaglinide 0.5 - 1 mg (1 - 2 x 0.5 mg) PO TID tadalafil 10 mg PO DAILY 90 days tadalafil 20 mg PO ONCE PRN 30 days tirzepatide 2.5 mg (0.5 mL) subcut QWEEK 4 weeks Tobacco use date assessed: 03/01/25 Dental Screening Dental Screen Date: 08/25/24 HPI f/u DMII/ HTN- A1C needed HPI Details Patient is a 54 year-old male here today for a follow-up visit ? significant for HTN, DMII, HLD, ED, VALLES, ? Chronic lumbar spine pain,chronic left foot navicular fx. ? .. Lumbar disc disease: reports continues to have lower back pain , worse with long periods of sitting and standing. Has seen [place] pain management in the past and was given gabapentin which was not effective in reducing his pain. He has gotten injections in his back though have not been effective on reducing his pain.. He reports he has been unable to work due to his chronic lower back pain. He is trying to get on on employment at this time. 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 .. ? HTN: ? He reports blood pressures when taken at home have been stable. ? patient denies any shortness of breath, chest discomfort or headaches. Continues on? Lisinopril 10 mg. ? .. ? DMII:? Though noted and significant weight loss since last office visit. The patient has a history of Type 2 Diabetes Mellitus, with recent challenges in medication adherence due to confusion between Metformin and Methocarbamol, leading to elevated blood glucose levels. His Hemoglobin A1c was reported at 9.8%, indicating poor glycemic control. The patient has been on Mounjaro, but insurance issues have affected consistent use.. .Continues on metformin, Jardiance and mounjaro. PLAN: Will increase GLP 1 dose and restart metformin correct dosing PFSH Medical History Diverticulosis of colon Diabetes type 2, uncontrolled Overweight Smoking Chronic sinusitis Hyperlipidemia LDL goal <100 Essential hypertension Controlled diabetes mellitus without complication, without long-term current use of insulin Anxiety Depression HTN (hypertension) Diabetes Surgical History Hx of colonoscopy History of nasal surgery Hx of rhinoplasty Hx of foot surgery History of cataract surgery History of appendectomy H/O elbow surgery History of repair of rotator cuff Family History Mother Diabetes Hypertension Father Medical history unknown Social History Household Members: None Housing: House Alcohol intake: never Comment: counts correct Patient Tobacco Use Status: Former Tobacco user Tobacco use type: Cigarette Years Smoked: 1 1/2 year ago e-Cigarette/Vaping Use: Never Used Second Hand Smoke Exposure: Yes service: No 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al status: unemployed and disabled 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 1. Little interest or pleasure in doing things: not at all 2. Feeling down, depressed, or hopeless: not at all 3. Trouble falling or staying asleep, or sleeping too much: several days 4. Feeling tired or having little energy: several days 5. Poor appetite or overeating: several days 6. Feeling bad about yourself - or that you are a failure or have let yourself or your family down: several days 7. Trouble concentrating on things, such as reading the newspaper or watching television: several days 8. Moving or speaking so slowly that other people could have noticed. Or the opposite - being so fidgety or restless that you have been moving around a lot more than usual: not at all 9. Thoughts that you would be better off or of hurting yourself in some way: not at all Total score: 5 Depression Screening Interpretation: Positive Depression Screening Follow-up: Existing condition Depression Screening Done: Yes 67547 - PHQ-9 Billing: Yes Source: Developed by Drs. Rasheed Pena, Fanta Dutton, Garcia Parham and colleagues, with an educational jerrod from [employer]. Thrive Questionnaire Date Thrive assessed: 03/01/25 I am a: Patient What is your living situation today?: I have a steady place to live Within the past 12 months, did the food you bought not last and you didn't have the money to get more?: Never true Within the past 12 months, did you worry whether your food would run out before you got money to buy more?: Never true Do you have trouble paying for medicines?: No Do you have trouble getting transportation to medical appointments?: No Do you have trouble paying your heating and electricity bill?: No Do you have trouble taking care of your child, family member or friend?: No Do you have trouble with day-to-day activities such as bathing, preparing meals, shopping, managing finances, etc.?: No Are you currently unemployed and looking for a job?: No Are you interested in more education?: No Please select the resources that you would like help with: None Currently or been in a relationship where the following occur: I choose not to answer THRIVE Score: 0 FRANCISCO-7 AMB Questionnaire FRANCISCO-7 Date FRANCISCO - 7 assessed: 08/25/24 Source: Developed by Drs. Rasheed Pena, Fanta Dutton, Garcia Parham and colleagues, with an educational jerrod from [employer]. Review of Systems Const Denies headache(s) Eyes Denies loss of vision ENT Denies vertigo, Denies dizziness, Denies headache(s) and Denies sore throat Card Denies chest pain, Denies leg edema and Denies lightheadedness Resp Denies cough, Denies hemoptysis and Denies wheezing GI Denies abdominal pain, Denies melena, Denies constipation, Denies diarrhea and Denies vomiting Denies dysuria, Denies urinary frequency and Denies urinary urgency Musc Denies arthralgias, Denies joint swelling, Denies numbness and Denies tingling Neuro Denies Abnormal speech present, Denies behavioral changes, Denies vertigo, Denies dizziness, Denies headache(s), Denies loss of vision, Denies memory loss, Denies numbness and Denies tingling Psych Denies anxiety, Denies behavioral changes, Denies depression, Denies memory loss and Denies panic attacks Deshawn/Lymph Denies easy bleeding and Denies easy bruising Aller/Immun Denies wheezing Physical exam (Primary Care) Vital Signs: Last Vital Signs Temp 97.3 F 03/01/25 08:53 Pulse 86 03/01/25 08:53 BP 120/72 03/01/25 08:53 Pulse Ox 96 03/01/25 08:53 Oxygen Delivery Method Room Air 03/01/25 08:53 BMI result Body Mass Index 23.9 Tobacco/Smoking Status: Tobacco use Status Tobacco use date assessed 03/01/25 03/01/25 08:59 Patient Tobacco Use Status Former Tobacco user 03/01/25 08:59 Tobacco use type Cigarette 03/01/25 08:59 e-Cigarette/Vaping Use Never Used 03/01/25 08:59 PHQ-9: PHQ-9 Score PHQ-9: Total score 5 03/01/25 08:59 Depression Screening Interpretation: Positive Depression Screening Follow-up: Existing condition Thrive Assessment: Date of Thrive Assessment Date Thrive assessed 03/01/25 03/01/25 08:59 Currently or been in a relationship where the following occur: I choose not to answer Const General: healthy appearing, no acute distress, alert and awake Nutritional Appearance: well nourished Orientation/consciousness: oriented to person, oriented to place and oriented to time HENMT Ears: TM's normal bilaterally General nose exam: Normal nasal mucous membranes and turbinates present Eyes Conjunctivae: conjunctivae normal Sclerae: sclerae normal Pupils: Equal, round and reactive pupils present Neck Neck: Yes no lymphadenopathy and Yes no JVD Thyroid: Thyroid normal Carotids: no bruits Resp Effort & Inspection: normal respiratory effort and not tachypneic Auscultation: no crackles, no rales, no rhonchi and no wheezes Cardio Rate: regular rate Rhythm: regular rhythm Heart sounds: no murmurs and normal S1 and S2 GI Palpation (GI): Soft to palpation, nontender, no hepatomegaly and no splenomegaly Auscultation: normal bowel sounds Skin General skin exam: no rashes or lesions noted and dry skin Neuro General: oriented to person, oriented to place and oriented to time Cranial nerves: Yes Equal, round and reactive pupils present Speech: No Abnormal speech present Gait exam (Neuro): Normal gait present Motor exam (neuro): no tremor noted Extrem Right upper extremity: full ROM Left upper extremity: full ROM Right lower extremity: full ROM; no edema Left lower extremity: full ROM; no edema Psych Mental Status: mental status grossly normal Speech and movement: Normal speech and movement present Affect: normal affect Attitude: cooperative Thought process: Normal thought process present Results AMB Hemoglobin A1c AMB Hemoglobin A1c 9.8 % Last Edit by LIZ Cotto on 03/01/25 09:04 Results Reviewed Results Reviewed: Laboratory Last Values Hgb A1c (Clinic) 9.8 % (4.0-6.0) H 03/01/25 08:52 Coding Level of Care Code Est Pt Level 4 (76283) Diagnoses Uncontrolled type 2 diabetes mellitus with hyperglycemia E11.65 Glycemic state: with hyperglycemia Essential hypertension I10 Hyperlipidemia LDL goal <100 E78.5 Additional Codes PHQ-9 - 56721 - PHQ-9 Billing: Yes ([id number]) Assessment & Plan Assessment & Plan (1) Diabetes type 2, uncontrolled: Code(s): E11.65 - Type 2 diabetes mellitus with hyperglycemia Category: Medical Qualifiers: Glycemic state: with hyperglycemia Qualified Code(s): E11.65 - Type 2 diabetes mellitus with hyperglycemia Plan: Patient's type 2 diabetes suboptimally controlled with A1c today 9.8 from 8. Have noticed significant amount of weight loss since last office visit. He does admit to polyuria Will transitioned to higher dose- Monjauro for better glycemic control. Restart metformin for better glycemic control Goal A1c is to be below 7.0 (2) Essential hypertension: Code(s): I10 - Essential (primary) hypertension Category: Medical Plan: Patient's blood pressure acceptable today in office. Will continue his current dose of lisinopril with goal blood pressure to remain below 140/90 (3) Hyperlipidemia LDL goal <100: Code(s): E78.5 - Hyperlipidemia, unspecified Category: Medical Plan: Patient's most recent fasting lipid panel showing excellent control of his total cholesterol and LDL. Will continue his current dose of atorvastatin 40 mg. Goal LDL is to remain below 100 Orders: Orders AMB Hemoglobin A1c Today E11.65 - Type 2 diabetes mellitus with hyperglycemia Comprehensive [place]. Panel Fast Today E11.65 - Type 2 diabetes mellitus with hyperglycemia Complete Blood Count no Diff Today E11.65 - Type 2 diabetes mellitus with hyperglycemia Lipid Panel Today E78.5 - Hyperlipidemia, unspecified Medications: New lancets (FreeStyle Lancets) As directed 100 ea 3RF E11.65 - Type 2 diabetes mellitus with hyperglycemia, E11.9 - Type 2 diabetes mellitus without complications tirzepatide (Mounjaro) 5 mg (0.5 mL) subcut QWEEK 2 mL 3RF 4 weeks E11.65 - Type 2 diabetes mellitus with hyperglycemia Refilled blood-glucose meter (FreeStyle [place] Lite kit) As directed 1 ea 0RF E11.65 - Type 2 diabetes mellitus with hyperglycemia blood sugar diagnostic (FreeStyle Lite Strips) testing twice per day 100 ea 11RF E11.65 - Type 2 diabetes mellitus with hyperglycemia On Hold tirzepatide Hold Comment: Doctor's Order 2.5 mg (0.5 mL) subcut QWEEK 4 weeks 2 mL 1RF E11.65 - Type 2 diabetes mellitus with hyperglycemia
[2025-03-01 08:53] VITALS: BP 120/72; PULSE 86; TEMP 36.3; O2SAT 96; BMI 23.9
--- OUTSIDE RECORDS SUMMARY | 2025-03-01 09:48 | XMS_ITS | Clinical Summary ---
Author Organization [employer] [facility] ity Address [address] [place] [address] Care Team Providers Care Bearing Machine Operator Name Role Phone Unavailable Primary Care [...] Vaccine ( - 2023-2 5 season) 2024 Depression Screening 06/24/2024 Influenza Vaccine (#1) 2025 HIB Vaccines Aged Out No longer eligi [...] age to complete this topic Meningococcal B Vaccine Aged Out No l onger eligible based on patient's age to complete this topic RSV Immunization Patients Un galo 20 months Aged Out No longer eligible b ased on patient's age to complete this topic Varicella Vaccines Aged Out No longer eligible based on patient's age to complete this topic
--- OUTSIDE RECORDS SUMMARY | 2025-03-01 09:48 | XMS_ITS ---
Author Name [facility] Organization Unknown History of Medication Use Medication Directions Dispensed Refills Start Date End Date Stat betamethasone acet,sod phos (CELESTONE) 6 mg/mL injection 6 mg 6 mg, intra-articular, One-time injection, 1 dose, Starting on Sat12/20/21 at 0956, Until Sat12/20/21 at 0956 12/20/2021 2 completed bupivacaine HCl (MARCAINE) 0.5 % (5 mg/mL) injection 1 mL 12/20/2021 2 completed lisinopriL (PRINIVIL) 10 mg tablet TAKE 1 TABLET BY MOUTH DAILY. DISCONTINUE 5 MG LISINOPRIL PRESCRIPTION 10/20/2021 active Trulicity 0.75 mg/0.5 mL pen injector ADMINISTER 0.75 MG UNDER THE SKIN EVERY WEEK 10/20/2021 active montelukast (SINGULAIR) 10 mg tablet Take 10 mg by mouth. 09/21/2021 active Jardiance 25 mg tablet Take 25 mg by mouth every morning. 09/20/2021 active Problems Problem Status Onset Date Problem Type Date of Resolution Source Nondisplaced fracture of navicular (scaphoid) of left foot, initial encounter for closed fracture active En[facility]DiagnosisAct [facility] Arthritis of ankle or foot, degenerative, left active EncounterDiagnosisAct [facility] Osteochondral lesion of talar dome active EncounterDiagnosisAct [facility] Encounters Encounter Type Encounter Reason Primary Diagnosis Location Date Ambulatory Primary osteoart hritis, left ankle and foot [facility] 01/10/2022 Ambulatory Primary osteoart hritis, left ankle and foot [facility] 12/20/2021 Ambulatory Primary osteoart hritis, left ankle and foot [facility] 12/20/2021 Ambulatory Nondisplaced fra cture of navicular (scaphoid) of left foot, initial encounter for closed fracture [facility] 11/29/2021 Ambulatory Nondisplaced fra cture of navicular (scaphoid) of left foot, initial encounter for closed fracture [facility] 11/08/2021 Ambulatory Nondisplaced fra cture of navicular (scaphoid) of left foot, initial encounter for closed fracture [facility] 11/08/2021 Ambulatory Nondisplaced fra cture of navicular (scaphoid) of left foot, initial encounter for closed fracture [facility] 11/08/2021 Care Team Organization Name Specialty Phone Email Start Date End Da roscoe [facility] PCP,No Primary Care 01/10/2022 [facility] NO PCP Primary Care 11/08/2021
--- OUTSIDE RECORDS SUMMARY | 2025-03-01 09:48 | XMS_ITS | Clinical Summary ---
Author Organization [facility] Address [address] [place] [address] Care Team Providers Care Custom Shoemaker Name Role Phone Pcp, No MD Primary [...] Td Vaccines (1 - Tdap) 1987 Hepatitis B Vaccines (1 of 3 - 19+ 3-dose series) 1988 Pneumococcal Vaccine, 50+ Ye ars (1 of 1 - PCV) 2019 Zoster Vaccines (1 of 2) 2019 COVID-19 Vaccine (1 - 2023-2 5 season) 2025 Influenza Vaccine (#1) 2025 HPV Vaccines Aged Out No longer eligi [...] patient's age to complete this topic Insurance - OUT OF [facility] Care Teams Custom Shoemaker Relationship Specialty Start Date End Date Michelle Kumar MD [address] [place] [address] PCP - General Internal Medicine 10/16/21
--- OUTSIDE RECORDS SUMMARY | 2025-03-01 09:48 | XMS_ITS | Clinical Summary ---
Author Organization [facility] Address [address] [place] [address] Care Team Providers Care Check Cashier Name Role Phone Unavailable Primary Care Provider [...] of 2) 2019 COVID-19 Vaccine (1 - season) 2025
--- OUTSIDE RECORDS SUMMARY | 2025-03-01 09:48 | XMS_ITS | Encounter Summary ---
Author Organization [employer] Address [address] [place] [address] [address] [place] [address] Care Team Providers Care Provider Contracting Consultant Name Role Phone Unavailable Primary Care Provider Unavailabl e Encounter Details Date Type Department Care Team (Latest Contact Info) Description 10/02/2018 Abstract [facility] CONVERSIONS Dental, Provider, DDS Social History Tobacco [...]
--- OUTSIDE RECORDS SUMMARY | 2025-03-01 09:48 | XMS_ITS | Clinical Summary ---
Author Organization [employer] Address [address] [place] [address] [address] [place] [address] Care Team Providers Care Master Chef Name Role Phone Unavailable Primary Care Provider [...] FOBT 1969 Lipid Panel 1969 Sigmoidoscopy 1969 Disability Screening 1969 Alcohol/Substance Use Screening 1981 Tobacco Screening 1981 DTaP/Tdap/Td Vaccines (1 - Tdap) 1988 Hepatitis B Vaccines (1 of 3 - 19+ 3-dose series) 1988 Pneumococcal Vaccine: 50+ Ye ars (1 of 1 - PCV) 2019 Zoster Vaccines (1 of 2) 2019 COVID-19 Vaccine ( - 2023-2 5 season) 2025 Influenza Vaccine (#1) 2025 RSV Patients and Pa tients Aged 60 [...]
== END 2025-03-01 09:17 | disposition home or self-care (01) ==
LOC: HO.HMCH 08:45
PROVIDERS: PCP Physician Assistant; Visit Provider Physician Assistant
DX: E11.65 Type 2 diabetes mellitus with hyperglycemia (principal); I10 Essential (primary) hypertension; E78.5 Hyperlipidemia, unspecified

== ENCOUNTER → 2025-03-01 08:44 | Outpatient (BNVA) | payer OTHER, SELFPAY | PROVIDERS: PCP Physician Assistant; Visit Provider Physician Assistant | DX: E11.65 Type 2 diabetes mellitus with hyperglycemia (principal); I10 Essential (primary) hypertension; E78.5 Hyperlipidemia, unspecified; N52.9 Male erectile dysfunction, unspecified; K75.81 Nonalcoholic steatohepatitis (NASH); M51.369 Other intervertebral disc degeneration, lumbar region without mention of lumbar back pain or lower extremity pain | CPT/HCPCS: 83036; 96127; 99212 ==